=== PATIENT | male | born 1950 | race Caucasian/White ===

== ENCOUNTER 2016-10-21 08:42 | Emergency (ER) | payer MEDICARE, OTHER ==
[2016-02-11 08:54] VITALS: BMI 35.4
[~2016-10-21 08:42] MED LIST: BAYER CHEWABLE81 MG PO; CARDURA8 MG PO; COLACE100 MG PO; EFFEXOR37.5 MG PO; EFFEXOR50 MG PO; FISH OIL 1,0001 CA1 PO; JANUVIA100 MG PO; KLOR-CON M2020 MEQ PO; LYRICA75 MG PO; MIRAPEX0.5 MG PO; NIASPAN1000 MG PO; NORVASC10 MG PO; PERCOCET 10/3251 TA1 PO; PRILOSEC10 MG PO; XANAX0.5 MG PO; ZETIA10 MG PO
[2016-10-21 10:07] LABS: BASOPHILS 0.2 % (0-2); HEMOGLOBIN 13.6 g/dL (13.5-17.5); IMMATURE GRANULOCYTES 0.2 % (0-5); LYMPHOCYTES 15.5 % (15-50); MCH 28.8 pg (26.0-34.0); MCHC 33.2 g/dL (31.0-37.0); MCV 86.7 fL (80.0-100.0); MEAN PLATELET VOLUME 10.9 fL (7.4-10.4); MONOCYTES 6.1 % (2-11); RBC 4.73 10x6/uL (4.20-6.10); RDW 15.9 % (11.5-14.5); WBC 5.4 10x3/uL (4.8-10.8)
[2016-10-21 10:10] LABS: PLATELET COUNT 126 10x3/uL (130-400)
[2016-10-21 10:24] LABS: ALBUMIN 3.6 g/dL (3.4-5.0); ALKALINE PHOSPHATASE 63 U/L (46-116); ALT (SGPT) 25 U/L (10-68); BILIRUBIN - TOTAL 0.36 mg/dL (0.2-1.3); CALC OSMOLALITY 285 mosm/kg (275-300); CALCIUM 8.7 mg/dL (8.5-10.1); CARBON DIOXIDE 25.7 mmol/L (21.0-32.0); CHLORIDE - SERUM 107 mmol/L (98-107); CREATININE - SERUM 1.2 mg/dL (0.6-1.3); GLUCOSE 142 mg/dL (74-106); POTASSIUM - SERUM 4.5 mmol/L (3.5-5.1); PROTEIN - SERUM 7.6 g/dL (6.4-8.2); SODIUM 141 mmol/L (136-145); UREA NITROGEN 20 mg/dL (7-18); eGFR NON AFRICAN AMERICAN 64 mL/min (90-120)
[2016-10-21 10:29] LABS: CREATINE KINASE 95 UL (21-232); MAGNESIUM - SERUM 2.1 mg/dL (1.8-2.4)
[2016-10-21 10:30] LABS: TROPONIN-I < 0.017 ng/mL (0.000-0.060)
== END 2016-10-21 11:56 | disposition home or self-care (01) ==
LOC: D.ER 08:42
PROVIDERS: Emergency Medicine
DX: R51 Headache (principal); M54.2 Cervicalgia; C67.9 Malignant neoplasm of bladder, unspecified; I25.810 Atherosclerosis of coronary artery bypass graft(s) without angina pectoris; E11.9 Type 2 diabetes mellitus without complications; I10 Essential (primary) hypertension; F17.200 Nicotine dependence, unspecified, uncomplicated

== ENCOUNTER → 2016-10-30 14:16 | Outpatient (CLI) | payer MEDICARE, OTHER ==
[2016-02-11 08:54] VITALS: BMI 35.4
== END | disposition home or self-care (01) ==
LOC: D.US 14:16
DX: R22.1 Localized swelling, mass and lump, neck (principal)

== ENCOUNTER 2016-11-18 16:25 | Inpatient (IN) | payer MEDICARE, OTHER ==
[~2016-11-18] VITALS: Ht 175.3 cm; Wt 108.9 kg
--- NOTE | ~2016-11-18 | HEMODYNAMI ---
PATIENT:MEREDITH POND MEDICAL RECORD: [id number] : 48 LOCATION:[facility] D.2106 ADMISSION DATE: 11/18/16 Generatedon:11/23/201611:56 Patient name: MEREDITH POND Patient #: [id number] SSN: : 1950 Date of study: 11/23/2016 Page: Of Hemodynamic Procedure Report Patient Data Patient Demographics Procedure consent was obtained First Name: MEREDITH Gender: Male Last Name: DEJAH : 1950 Patient #: [id number] Age: 66 year(s) Race: Unknown Additional ID: [id number] Contact details Address: [address] [address] State: [place] City: [place] Zip code: [address] Admission Admission Data Admission Date: 11/18/2016 Admission Time: 19:35 Room #: D.2106 Procedure Procedure Types Cath Procedure Peripheral Cath Diagnostic Procedure Miscellaneous Procedure Description Procedure Date Procedure Date: 11/23/2016 Procedure Start Time: 11:35 Procedure Staff Name Function Hayes Kamara MD Performing Physician Sarah Isbell RT Scrub Demetra Jaquez RN Nurse Severo Pham RT Monitor Procedure Data Cath Procedure Fluoroscopy Diagnostic fluoroscopy Total fluoroscopy Time: 1.8 time: 1.8 min min Diagnostic fluoroscopy Total fluoroscopy dose: 69 dose: 69 mGy mGy Contrast Material Contrast Material Type Amount (ml) Isovue 300 25 Hemodynamics Rest Snapshots Pre Cath Intra NCS Post Cath Procedure Log Time Note 11:09:43 Severo Pham RT (R) (CV) sent for patient. Start room use. 11:11:03 Time tracking: Regular hours 11:11:08 Plan of Care:Hemodynamics will remain stable., Cardiac rhythm will remain stable., Comfort level will be maintained., Respiratory function will remain adequate., Patient/ family verbilizes understanding of procedure., Procedure tolerated without complication., Recovers from procedure without complications.. 11:11:09 Correct patient and procedure confirmed by team. 11:11:11 Signed procedure consent form obtained from patient. 11:11:12 ECG and BP/O2 sat monitors applied to patient. 11:11:13 Baseline sample Acquired. 11:11:18 Pre-procedure instructions explained to patient. 11:11:19 Pre-op teaching completed and patient verbalized understanding. 11:11:20 Family in waiting room. 11:11:22 Patient NPO since Midnight. 11:11:31 Alarms reviewed by R. N. 11:11:31 Sharps counted by scrub and verified by R.N. 11:11:37 Right abdomen area was prepped with chlora-prep and draped in sterile fashion 11::59 Physician arrived 11::59 --------ALL STOP TIME OUT------ 11:35:04 Final Timeout: patient, procedure, and site verified with staff and physician. All members of the team are in agreement. 11:35:07 Right abdomen site verified by team. 11:35:12 Sedation plan: IV Moderate Sedation Lidocaine 11:35:35 Procedure started. 11:35:35 Full Disclosure recording started 11:35:44 Local anesthetic to Abdominal area with Lidocaine 1% by Hayes Kamara MD.INITIAL ACCESS ONLY 11:45:10 Procedure ended.(Physican Out) 11:52:54 Fluoroscopy time 01.80 minutes. 11:53:00 Fluoroscopy dose: 69 mGy 11:53:00 Flurop Dose total: 69 11:53:02 STOPCOCK 3-WAY LARGE BORE opened to sterile field. 11:53:03 BAG, DRAINAGE EMPTY 600ML W/SALLIE opened to sterile field. 11:53:06 Contrast amount:Isovue 300 25ml. 11:53:09 Sharps counted by scrub and verified by R.N. 11:53:13 Insertion/operative site no bleeding no hematoma. 11:53:18 Post-op/insertion site Right Abdominal area dressed using a 4 x 4 and Tegaderm. 11:53:24 Post Abdominal area:stable 11:53:34 Post procedure instruction explained to patient.Patient verbalizes understanding. 11:53:36 Procedure and supply charges have been captured, reviewed, submitted and are correct. 11:53:45 Report given to [facility]. 11:53:50 Patient transfered to [facility] with Wheelchair. Device Usage Item Manufacture Quantity Catalog Hospital Part Current Minimal Lot# / Name Number Charge Number Stock Stock Serial# Code TAMMIE [facility] 1 [id number] [id number] 5 [id number] 3-WAY LARGE BORE BAG, [facility] 1 [id number] 5 DRAINAGE Medical EMPTY 600ML W/SALLIE Signature Audit [place] Stage Time Signature Unsigned Intra-Procedure 11/23/2016 Severo 11:56:31 AM Ankit RT (R) (CV) Signatures Monitor : Severo Signature : Ankit RT Date : Time : [id number] [place] [address]
--- NOTE | ~2016-11-18 | HEMODYNAMI ---
PATIENT:MEREDITH POND MEDICAL RECORD: [id number] : 48 LOCATION:[facility] D.2106 ADMISSION DATE: 11/18/16 Generatedon:11/21/20169:22 Patient name: MEREDITH POND Patient #: [id number] SSN: : Date of study: 11/21/2016 Page: Of Hemodynamic Procedure Report Patient Data Patient Demographics Procedure consent was obtained First Name: MEREDITH Gender: Male Last Name: DEJAH : 1950 Patient #: [id number] Age: 66 year(s) Race: Unknown Additional ID: [id number] Contact details Address: [address] [address] State: [place] City: [place] Zip code: [address] Admission Admission Data Admission Date: 11/18/2016 Admission Time: 19:35 Room #: D.2106 Procedure Procedure Types Cath Procedure Peripheral Cath Diagnostic Procedure Miscellaneous Procedure Description Procedure Date Procedure Date: 11/21/2016 Procedure Start Time: 8:40 Procedure Staff Name Function Isaac Dangelo MD Performing Physician Sarah Isbell RT Scrub Demetra Jaquez RN Nurse Severo Pham RT Monitor Procedure Data Cath Procedure Fluoroscopy Diagnostic fluoroscopy Total fluoroscopy Time: 5.8 time: 5.8 min min Diagnostic fluoroscopy Total fluoroscopy dose: 192 dose: 192 mGy mGy Contrast Material Contrast Material Type Amount (ml) Isovue 300 24 Diagnostic catheters Device Type Used For End Catheter Placement Merit Impress KA2 5Fr 65CM catheter Hemodynamics Rest Heart Rate: 65 (bpm) Snapshots Pre Cath Intra NCS Post Cath Vital Signs Time Heart Resp SPO2 NIBP (mmHg) Rhythm Pain Sedation Rate (ipm) (%) Status Level (bpm) 8:19:26 66 13 97 133/80(124) NSR 0 (11) 10(A) , No pain 8:23:42 65 15 96 148/90(126) NSR 0 (11) 10(A) , No pain 8:28:05 64 18 96 138/82(112) NSR 0 (11) 10(A) , No pain 8:32:25 68 17 95 129/86(105) NSR 0 (11) 10(A) , No pain 8:36:41 69 19 97 137/88(117) NSR 0 (11) 10(A) , No pain 8:41:40 71 9 95 Measuring NSR 0 (11) 10(A) , No pain 8:41:56 71 9 94 125/83(109) NSR 0 (11) 10(A) , No pain 8:46:10 68 16 92 119/85(99) NSR 0 (11) 10(A) , No pain 8:50:22 68 16 91 121/89(101) NSR 0 (11) 10(A) , No pain 8:54:34 68 16 91 130/89(109) NSR 0 (11) 10(A) , No pain 8:58:50 68 15 93 138/86(115) NSR 0 (11) 10(A) , No pain 9:03:08 67 16 91 136/91(112) NSR 0 (11) 10(A) , No pain 9:07:24 69 15 90 136/89(115) NSR 0 (11) 10(A) , No pain 9:11:36 68 16 91 133/89(113) NSR 0 (11) 10(A) , No pain 9:15:52 67 15 92 146/89(110) NSR 0 (11) 10(A) , No pain 9:20:12 68 14 92 148/91(122) NSR 0 (11) 10(A) , No pain Procedure Log Time Note 8:07:26 Severo Pham RT (R) (CV) sent for patient. Start room use. 8:07:57 Time tracking: Regular hours 8:08:14 Plan of Care:Hemodynamics will remain stable., Cardiac rhythm will remain stable., Comfort level will be maintained., Respiratory function will remain adequate., Patient/ family verbilizes understanding of procedure., Procedure tolerated without complication., Recovers from procedure without complications.. 8:08:23 Patient received from Outpatients to IR Alert and oriented. Tansferred to table in Prone position. 8:08:25 Correct patient and procedure confirmed by team. 8:08:26 Signed procedure consent form obtained from patient. 8:08:27 ECG and BP/O2 sat monitors applied to patient. 8:08:28 Full Disclosure recording started 8:08:29 8:08:32 H&P Date Dictated: 11/21/2016 H&P Addendum completed by physician on day of procedure. (MUST COMPLETE FOR ALL OUTPATIENTS). 8:08:33 Pre-procedure instructions explained to patient. 8:08:33 Pre-op teaching completed and patient verbalized understanding. 8:08:37 Family in waiting room. 8:08:39 8:09:06 SEE ANESTHESIA NOTE FOR PRE PROCEDURE TIVA 8:17:56 Vital chart was started 8:17:57 Baseline sample Acquired. 8:17:59 Rhythm: sinus rhythm 8:28:26 Use device set IR Diagnostic 8:28:27 Sterile Angiographic Pack opened to sterile field. 8:28:29 Bag Decanter opened to sterile field. 8:38:26 Right abdomen area was prepped with chlora-prep and draped in sterile fashion 8:38:29 Alarms reviewed by R. N. 8:38:30 Sharps counted by scrub and verified by R.N. 8:38:33 Physician arrived 8:38:33 Final Timeout: patient, procedure, and site verified with staff and physician. All members of the team are in agreement. 8:38:34 --------ALL STOP TIME OUT------ 8:38:39 Right abdomen site verified by team. 8:38:45 Physical assessment completed. ASA score P 4 - A patient with severe systemic disease that is a constant threat to life as per Isaac Dangelo MD. 8:38:52 Sedation plan: IV Moderate Sedation Propofol 8:39:48 Procedure started. 8:40:03 Local anesthetic to Abdominal area with Lidocaine 1% by Isaac Dangelo MD.INITIAL ACCESS ONLY 8:40:06 CHIBA 20 X 15 needle opened to sterile field. 8:40:07 Acist Syringe opened to sterile field. 8:46:28 KIT, INTRODUCER ACCUSTICK II W/C opened to sterile field. 8:46:28 BAG, DRAINAGE EMPTY 600ML W/SALLIE opened to sterile field. 8:46:29 STOPCOCK 3-WAY LARGE BORE opened to sterile field. 8:48:[address] .035 145 glide wire opened to sterile field. 8:49:30 A Certica Solutions KA2 5Fr 65CM catheter was advanced over the wire and used for . 8:52:20 Cook MANDEL 180 guide wire opened to sterile field. 8:54:30 Terumo 6Fr Carroll Destination Sheath opened to sterile field. 8:55:10 Inflation number: 1 A Cordis Powerflex Pro 7.0 x 40 x 80cm balloon was prepped and advanced across the Undefined1, then inflated 8:56:53 PEEL-A-WAY INTRODUCER 9FR. opened to sterile field. 8:56:59 PEEL-A-WAY INTRODUCER 9FR. opened to sterile field. 9:00:21 [place] [facility] All Purpose 8Fr drainage catheter opened to sterile field. 9:02:31 DILATOR, VESSEL 10/20 opened to sterile field. 9:09:02 Procedure ended.(Physican Out) 9:11:47 Fluoroscopy time 05.80 minutes. 9:11:52 Fluoroscopy dose: 192 mGy 9:11:52 Flurop Dose total: 192 9:12:16 Contrast amount:Isovue 300 24ml. 9:12:18 Sharps counted by scrub and verified by R.N. 9:12:34 SEE ANESTHESIA NOTE FOR POST PROCEDURE TIVA 9:22:57 Vital chart was stopped Intervention Summary Intervention Notes Time ActionType Lesion and Equipment Action# Pressure Duration Attributes Used 8:55:10 Inflate Undefined1 Cordis 1 0 00:00 balloon Powerflex Pro 7.0 x 40 x 80cm balloon Device Usage Item Name Manufacture Quantity Catalog Hospital Part Current Minimal Lot# / Number Charge Number Stock Stock Serial# Code Sterile Cardinal 1 [id number] 5 Angiographic Health Pack Bag Decanter Microtek 1 [id number] 08419 655341 5 Medical Inc. CHIBA 20 X [facility] 1 [id number] 754179 460247 5 [id number] 15 needle Acist Acist 1 69890 311607 331826 115189 20 Syringe Medical Systems Inc KIT, [place] 1 [id number] 372854 389027 711219 5 INTRODUCER Scientific ACCUSTICK II W/C BAG, [facility]it 1 [id number] 484101 831209 955945 5 DRAINAGE Medical EMPTY 600ML W/SALLIE STOPCOCK [facility] 1 [id number] 742047 0759 603283 5 [id number] 3-WAY LARGE BORE [facility] 1 E67334 013258 341854 5 [id number] [address]ADRUNNER .035 145 glide wire Merit Merit 1 [id number] 916980 740741 5 Impress KA2 Medical 5Fr 65CM catheter Cook [facility] 1 [id number] 614262 327331 5 [id number] 180 guide wire Terumo 6Fr Terumo 1 RSR01 284438 31994 514489 5 Carroll Destination Sheath Cordis Cardinal 1 [id number] 576108 584447 137270 5 Powerflex Health Pro 7.0 x 40 x 80cm balloon PEEL-A-WAY [facility] 2 [id number] 174950 789249 037938 5 [id number] INTRODUCER [id number] 9FR. [facility] 1 [id number] 795728 590960 301398 5 All Purpose Scientific 8Fr drainage catheter DILATOR, [facility] 1 E14325 563174 75061 027752 5 [id number] VESSEL 01/18 Signature Audit [place] Stage Time Signature Unsigned Intra-Procedure 11/21/2016 Severo 9:22:54 AM Shuffield RT (R) (CV) Signatures Monitor : Severo Signature : Nirajield RT Date : Time : [facility] [address] [place] [address]
[2016-11-18 17:50] LABS: APPEARANCE CLOUDY (CLEAR); COLOR YELLOW (YELLOW); GLUCOSE NEGATIVE (NEGATIVE); KETONE NEGATIVE (NEGATIVE); LEUKOCYTE ESTERASE 2+ (NEGATIVE); NITRITE POSITIVE (NEGATIVE); PROTEIN 1+ mg/dL (NEGATIVE); SPECIFIC GRAVITY 1.015 (1.005-1.020)
[2016-11-18 17:51] LABS: BILIRUBIN NEGATIVE (NEGATIVE); UROBILINOGEN NORMAL (NORMAL)
[2016-11-18 18:03] LABS: BACTERIA MANY /hpf (NONE SEEN); EPITHELIAL CELLS 0-5 /hpf (0-5); HYALINE CAST OCC /lpf (NONE SEEN); MUCUS <1+ /lpf (NONE SEEN); WHITE CELLS - URINE >50 /hpf (0-5)
[2016-11-18 18:19] LABS: BASOPHILS 0.1 % (0-2); EOSINOPHILS 1.4 % (0-7); HEMATOCRIT 40.6 % (42.0-54.0); HEMOGLOBIN 13.3 g/dL (13.5-17.5); IMMATURE GRANULOCYTES 0.2 % (0-5); LYMPHOCYTES 11.3 % (15-50); MCH 28.8 pg (26.0-34.0); MCHC 32.8 g/dL (31.0-37.0); MCV 87.9 fL (80.0-100.0); MEAN PLATELET VOLUME 10.3 fL (7.4-10.4); MONOCYTES 7.6 % (2-11); NEUTROPHILS 79.4 % (40-80); PLATELET COUNT 125 10x3/uL (130-400); RBC 4.62 10x6/uL (4.20-6.10); WBC 8.3 10x3/uL (4.8-10.8)
[2016-11-18 18:43] LABS: ALBUMIN 3.6 g/dL (3.4-5.0); ANION GAP 13.3 mmol/L (8-16); BILIRUBIN - TOTAL 0.32 mg/dL (0.2-1.3); CALCIUM 8.8 mg/dL (8.5-10.1); CARBON DIOXIDE 25.4 mmol/L (21.0-32.0); CREATININE - SERUM 1.5 mg/dL (0.6-1.3); POTASSIUM - SERUM 3.7 mmol/L (3.5-5.1); PROTEIN - SERUM 7.4 g/dL (6.4-8.2)
--- NOTE | 2016-11-18 19:59 | NUR ---
PT RECEIVED VIA WHEELCHAIR, AWAKE, ALERT, ORIENTED. CONTINUE WITH PT CARE. PT TRANSFERRED TO BED WITHOUT DIFFICULTY. CONTINUE TO MONITOR CLOSELY. BED LOW, CALL LIGHT IN REACH, SIDE RAILS X 2, HOB FLAT AT THIS TIME. REPORT RECEIVED FROM HUNTER KOWALSKI.
[2016-11-18 20:00] VITALS: BP 133/78
[2016-11-18] MEDS ORDERED: LYRICA225 MG PO (22:16)
[2016-11-18] MEDS ORDERED: REQUIP0.5 MG PO (22:17)
[2016-11-18] MEDS ORDERED: GLIMEPIRIDE2 MG PO (22:21)
[2016-11-18] MEDS ORDERED: SYNTHROID50 MCG PO (22:21)
[2016-11-19] VITALS (7 sets, daily range): BP systolic 125–181; BP diastolic 70–78; BMI 35.5
[2016-11-19] MEDS ORDERED: LYRICA75 MG PO (00:12)
--- NOTE | 2016-11-19 03:13 | NUR ---
REVIEWED PT'S ALLERGIES WITH PT AND , PLACED ALLERGY BAND, AND YELLOW FALL RISK BAND PT IS CURRENTLY ON DILAUDID ELECTRICAL ENGINEERING DIRECTOR. PT IS RESTING COMFORTABLY WITH C-PAP IN PLACE, DENIES ANY NEEDS, STATES THE DILAUDID IS HELPING HIS FLANK PAIN. CONTINUE TO MONITOR CLOSELY.
--- NOTE | 2016-11-19 08:14 | NUR ---
TYLENOL GIVEN FOR FEVER OF 100.3
--- NOTE | 2016-11-19 08:40 | NUR ---
AM ROUNDING DONE SEEN WITH STEVEDORING SUPERVISOR DILAUDID IN USE FOR PAIN CONTROL. RIGHT AC SEEN WITH NS INFUSING AT 30 CC/HR. ON ROOM AIR. HAS HOME CPAP AT BEDSIDE. WILL CPOC.
--- NOTE | 2016-11-19 09:25 | NUR ---
TO COME TO DESK R/T 0.25 MG XANAX IN AM NEEDED INSTEAD OF THE 0.5 MG. CALL PLACED TO DR SAMPSON OFFICE.
--- NOTE | 2016-11-19 09:28 | NUR ---
NEW ORDERES RECEIVED.
--- NOTE | 2016-11-19 09:49 | NUR ---
AM MEDS GIVEN WITH WATER.
--- NOTE | 2016-11-19 11:21 | NUR ---
PATIENT WANTING TO WALK AROUND NURSE STATION, UNHOOKED FROM SPORTS COMPLEX ATTENDANT AND IV FLUIDS. UP WITH
--- NOTE | 2016-11-19 11:49 | NUR ---
VAN TO ROOM FROM CENTRAL PER PATIENT REQUEST.
--- NOTE | 2016-11-19 14:17 | NUR ---
CALL PLACED TO DR SAMPSON'S OFFICE PATIENT IS ON HOME DOSE OF PERCOCET 10/325 MG 1 PO EVERY 6 HOURS NEEDED FOR LEG PAIN. AWAITING CALL BACK.
--- NOTE | 2016-11-19 14:24 | NUR ---
NEW ORDERS RECEIVED VIA DR SAMPSON OFFICE. THIS IS RELAYED TO THE PATIENT AND .
--- NOTE | 2016-11-19 15:40 | NUR ---
1540-OP PERMITS SIGNED FOR TOMORROW AND PATIENT IS MADE AWARE OF THE NPO PAST MIDNIGHT.
--- NOTE | 2016-11-19 21:05 | NUR ---
PT AWAKE, ALERT, ORIENTED, UP AMBULATING AROUND UNIT WITH HIS . PT DENIES ANY NEEDS AT THIS TIME. CONTINUE TO MONITOR CLOSELY.
[2016-11-20 05:11] VITALS: BP 106/59
[2016-11-20 05:14] LABS: BASOPHILS 0.2 % (0-2); EOSINOPHILS 1.9 % (0-7); HEMOGLOBIN 12.6 g/dL (13.5-17.5); IMMATURE GRANULOCYTES 0.2 % (0-5); LYMPHOCYTES 17.8 % (15-50); MCH 28.3 pg (26.0-34.0); MCHC 32.3 g/dL (31.0-37.0); MCV 87.6 fL (80.0-100.0); MONOCYTES 11.2 % (2-11); NEUTROPHILS 68.7 % (40-80); PLATELET COUNT 107 10x3/uL (130-400); RBC 4.45 10x6/uL (4.20-6.10)
[2016-11-20 05:22] LABS: WBC 4.8 10x3/uL (4.8-10.8)
[2016-11-20 05:23] LABS: INR 1.13 (0.85-1.17); PROTIME 14.4 SECONDS (11.6-15.0)
[2016-11-20 05:24] LABS: APTT 30.4 SECONDS (22.8-39.4)
[2016-11-20 05:30] LABS: ANION GAP 12.2 mmol/L (8-16); CALCIUM 8.7 mg/dL (8.5-10.1); CARBON DIOXIDE 24.9 mmol/L (21.0-32.0); CREATININE - SERUM 1.4 mg/dL (0.6-1.3); POTASSIUM - SERUM 4.1 mmol/L (3.5-5.1)
--- NOTE | 2016-11-20 07:47 | NUR ---
AM ROUNDING DONE WITH PATIENT NPO FOR POSSIBLE PROCEDURE TODAY. ON ROOM AIR. RIGHT AC WITH NS INFUSING AT 30 CC/HR. HOME CPAP AT BEDSIDE. RIGHT UROSTOMY SEEN. WILL CPOC.
--- NOTE | 2016-11-20 08:20 | NUR ---
CALLED AND TALKED TO CURT AT DR SAMPSON'S OFFICE R/T CARDIALOGY CLEARANCE. DR SAMPSON HERE TO SEE PATIENT AT THIS TIME.
[2016-11-20 09:02] VITALS: BP 131/77
--- NOTE | 2016-11-20 14:24 | NUR ---
LAYING IN BED RESTING WITH EYES CLOSED, HOME CPAP IN USE. WILL CONTINUE TO MONITOR.
--- NOTE | 2016-11-20 15:20 | NUR ---
DENIES NEEDS AT PRESENT TIME. AT BEDSIDE CHANGING OUT HIS RIGHT UROSTOMY APPLIANCE. WILL CPOC.
--- NOTE | 2016-11-20 15:24 | NUR ---
CALLED AND TALKED TO ARELY IN [facility] FOR RADIOLOGY AND SHE STATES THAT SHE WILL PLACE THE NEW ORDERS FOR PROCEDURE FOR AM .
--- NOTE | 2016-11-20 15:46 | NUR ---
UN-HOOKED FROM IV FLUIDS SO HE CAN AMBULATE AROUND NURSE STATION WITH .
[2016-11-20 16:19] VITALS: BP 155/82
--- NOTE | 2016-11-20 17:34 | NUR ---
RECONNECTED TO IV FLUIDS TO RIGHT AC. NO NEW ORDERS FOR NPO PAST MIDNIGHT FOR PROCEDURE IN AM BUT I INSTRUCTED AND PATIENT TO NPO PAST MIDNIGHT IN THE HOPES OF PROCEDURE IN AM. WILL PASS THIS TO NEXT NURSE ALONG WITH HOLDING THE NIACIN PER AND NEEDING NEW PERNITS IN AM.
[2016-11-20 17:59] VITALS: BP 124/59
[2016-11-20 20:00] VITALS: BP 140/80
--- NOTE | 2016-11-20 23:27 | NUR ---
19:30 - PT AMBULATING AROUND UNIT WITH , REQUESTING PAIN MEDICATION, DENIES ANY OTHER NEEDS. CONTINUE TO MONITOR CLOSELY.
[2016-11-21 05:04] VITALS: BP 144/83
--- NOTE | 2016-11-21 06:05 | NUR ---
PT HAS BEEN NPO SINCE MIDNIGHT, PREPARING FOR UPCOMING NEPHROSTOMY TUBE PLACEMENT, EVEN THOUGH IT IS NOT SCHEDULED AT THIS TIME. WAS SUPPOSED TO HAVE DONE YESTERDAY, BUT NEEDED CARDIAC CLEARANCE. PT RESTING COMFORTABLY, AT BEDSIDE, DENIES ANY NEEDS. CONTINUE TO MONITOR CLOSELY. BED LOW, CALL LIGHT IN REACH, SIDE RAILS X 2, HOB FLAT. PT WITH C-PAP ON FROM HOME.
--- NOTE | 2016-11-21 08:17 | HP ---
PATIENT: MEREDITH POND MEDICAL RECORD: [id number] ACCOUNT: [id number] LOCATION:[address] : [birth year] ADMISSION DATE: 11/18/16 HISTORY AND PHYSICAL EXAMINATION DATE OF ADMISSION: 11/18/2016 CHIEF COMPLAINT: Right flank pain and "kidney hurts." HISTORY OF PRESENT ILLNESS: This is a 66-year-old white male with multiple medical problems, had acute onset on November 17 of right flank pain and pain in his kidney area. He was found to have a 6-mm stone in the right distal ureter. He is admitted for further evaluation. PAST MEDICAL HISTORY: Diabetes for many years, peripheral neuropathy, coronary artery disease with CABG in 2001 and stents in 2005. He has a history of COPD, sleep apnea, multiple UTIs, diagnosed with bladder cancer, hyperlipidemia, obesity, depression, arthritis, chronic back pain, reflux. PAST SURGICAL HISTORY: Coronary artery bypass graft, cardiac stents, lumbar discectomy, hemorrhoidectomy, cholecystectomy. He has had a cystectomy with ileal conduit in [place] in May [address] Tubbs. ALLERGIES: REPORTEDLY TO ADHESIVE TAPE, SULFA, CIPRO, KEFLEX, DITROPAN, LOPRESSOR, PHENERGAN. HOME MEDICATIONS: Include Cardura 8 mg once a day, Niaspan 1000 mg at bedtime, amlodipine 10 mg once a day, Zetia 10 mg at bedtime, Xanax 0.5 mg t.i.d. p.r.n. anxiety, aspirin 81 mg once a day, Effexor 50 mg twice a day, Lyrica 225 mg at bedtime; ropinirole 0.5, he takes 2 mg at bedtime; Lyrica 75 mg daily to go with the 225 at bedtime, Percocet 10/325 q.6 hours p.r.n. back pain, potassium 20 mEq twice a day; Colace 100 mg, he takes 2 at bedtime, Prilosec 10 mg once a day, Januvia 100 mg once a day, levothyroxine 50 mcg once a day, glimepiride 2 mg once a day. SOCIAL HISTORY: , disabled hazmat truck driver. FAMILY HISTORY: Mother with heart disease and hypertension. Father with heart disease and hypertension. REVIEW OF SYSTEMS: GENERAL: No major weight changes. HEENT: No particular sinus or allergy problems. RESPIRATORY: He has long history of smoking. CARDIAC: History of coronary artery disease, fairly well controlled. GASTROINTESTINAL: History of reflux. GENITOURINARY: He has had multiple urinary tract infections since having his cystectomy with ileal conduit. ENDOCRINE: Diabetes under fair control. NEUROLOGIC: No migraines or seizures. PSYCHIATRIC: He has anxiety. PHYSICAL EXAMINATION: VITAL SIGNS: Temperature 99.1, pulse 74, respirations 20, blood pressure 141/69. HISTORY AND PHYSICAL [id number] MEREDITH POND GENERAL: He does not appear in acute distress at this time. HEENT: Grossly within normal limits. NECK: Supple. HEART: Regular rate and rhythm. LUNGS: Clear. ABDOMEN: Soft with a large parastomal hernia and umbilical hernia. Stoma is pink and draining. EXTREMITIES: No edema. LABORATORY DATA: CBC with a white count of 8300, hemoglobin 13.3, hematocrit 40. Basic metabolic panel is unremarkable. Liver functions were okay. Urinalysis: Yellow, cloudy, 1+ protein, 2+ blood, positive nitrite, 2+ leukocyte esterase, 0-5 epithelial cells, many bacteria. Urine cultures done. CT of the abdomen shows moderate right hydronephrosis, 2 adjacent stones in distal ureter up to 6 mm in size. There are multiple nonobstructing stones in both kidneys. Also, noted was the parastomal hernia containing part of the colon without obstruction. ASSESSMENT: 1. Urinary tract infection. 2. Ureterolithiasis. 3. Right renal colic. 4. Bladder cancer, status post cystectomy with ileal conduit. 5. Coronary artery disease, status post CABG and stents years ago. 6. Diabetes. PLAN: Cultures were done and antibiotics were started. Dr. Will has been consulted. Other tests and procedures as warranted. TRANSINT:[id number] Voice Confirmation ID: [id number] DOCUMENT ID: [id number] CELESTE SAMPSON MD at 0817 CC: [id number] DICTATION DATE: 11/20/1637 HOUSEKEEPING ATTENDANT: 11/20/16 0906 [address] [place] [address]
--- NOTE | 2016-11-21 08:18 | NUR ---
AM ROUNDS - PT IS AWAKE IN BED. AT BEDSIDE. YELLOW BAND ON. SIDE RAILS UP X2. BED AT LOWEST POSITION. CALL AGEE IN USE/REACH. BED AT LOWEST POSITION. NON SKID SOCKS ON. NO NEEDS AT THIS TIME. WILL CONTINUE TO MONITOR.
--- NOTE | 2016-11-21 08:20 | NUR ---
PT LEFT FLOOR VIA BED TO IR.
[2016-11-21 08:32] VITALS: BP 139/78
[2016-11-21 11:29] LABS: BASOPHILS 0.3 % (0-2); EOSINOPHILS 2.3 % (0-7); HEMATOCRIT 40.5 % (42.0-54.0); HEMOGLOBIN 13.2 g/dL (13.5-17.5); IMMATURE GRANULOCYTES 0.3 % (0-5); LYMPHOCYTES 27.5 % (15-50); MCH 28.8 pg (26.0-34.0); MCHC 32.6 g/dL (31.0-37.0); MCV 88.4 fL (80.0-100.0); MEAN PLATELET VOLUME 10.3 fL (7.4-10.4); MONOCYTES 8.8 % (2-11); NEUTROPHILS 60.8 % (40-80); PLATELET COUNT 125 10x3/uL (130-400); RBC 4.58 10x6/uL (4.20-6.10); RDW 15.9 % (11.5-14.5)
[2016-11-21 11:41] LABS: WBC 3.5 10x3/uL (4.8-10.8)
[2016-11-21 11:47] LABS: INR 1.06 (0.85-1.17); PROTIME 13.6 SECONDS (11.6-15.0)
[2016-11-21 11:52] LABS: ANION GAP 14.9 mmol/L (8-16); CALCIUM 8.8 mg/dL (8.5-10.1); CARBON DIOXIDE 26.2 mmol/L (21.0-32.0); CREATININE - SERUM 1.3 mg/dL (0.6-1.3); POTASSIUM - SERUM 4.1 mmol/L (3.5-5.1)
[2016-11-21 14:45] VITALS: Ht 175.3 cm; Wt 108.9 kg
--- NOTE | 2016-11-21 17:37 | EC ---
PATIENT:MEREDITH POND DATE OF SERVICE: 11/18/16 SEX: M MEDICAL RECORD: [id number] DATE OF : [birth year] LOCATION:D.M2 D.210 AGE OF PATIENT: 66 ADMISSION DATE: 11/18/16 REFERRING PHYSICIAN: INTERPRETING PHYSICIAN: XANDER TAYLOR MD ECHOCARDIOGRAM REPORT ECHO CHARGES 4 ECHO COMPLETE CLINICAL DIAGNOSIS: PRE-OP CLEARNCE KIDNEY STONES HX CAD/CABG/STENTS/HTN ECHOCARDIOGRAPHIC MEASUREMENTS (adult normal given) AC root (d.<3.7cm) 3.8 cm LV Septum d (<1.2 cm> 1.5 cm Valve Excursion 2.0 cm LV Septum (systole) 1.7 cm Left Atria (s.<4.0cm> 3.9 cm LVPW d(<1.2cm) 1.5 cm RV (d.<2.3cm) 4.2 cm LVPW (sytole) 1.8 cm LV diastole(<5.6CM) 7.0 cm MV E-F(>70mm/sec) cm LV systole 5.2 cm LVOT Diameter 2.2 cm MV exc.(>10mm) 1.6 cm Est.ejection fraction (50-75%) % Pericardial Effusion N DOPPLER: LVIT cm/sec A 83.0 cm/sec E 66.0 cm/sec LA cm/sec RVSP 31 mmHg LVOT 135 cm/sec AOP1/2T m/s Asc. Ao 150 cm/sec RVOT 108 cm/sec RA cm/sec PA 125 cm/sec AV Gradient Peak 9.00 mmHg AV Mean 3.64 mmHg AV Area 3.2 cm MV Gradient Peak 3.36 mmHg MV Mean 1.16 mmHg MV Area cm COMMENTS: Sailor: Patricio SCALES Golf Ball Trimmer: Kyleigh Taylor TAPE# PACS DATE OF SERVICE: 11/20/2016 PROCEDURE: Transthoracic echocardiogram. FINDINGS: 1. Left ventricle shows moderate concentric left ventricular hypertrophy. The overall ejection fraction appears to be low normal in the 50-55% range. Inflow characteristics into the left ventricle demonstrate diastolic dysfunction. 2. The mitral valve appears to be grossly normal without any significant evidence of mitral regurgitation or mitral stenosis. ECHOCARDIOGRAM REPORT [id number] MEREDITH POND 3. The left atrium is normal size and function. 4. The aortic valve is grossly normal without significant stenosis or regurgitation. 5. The tricuspid valve has mild tricuspid regurgitation. RVSP is 31 mmHg. 6. The pulmonic valve is not well visualized. Doppler examination appears to show normal function. 7. The inferior vena cava was not well just demonstrated. 8. The pericardium appears to be normal. CONCLUSIONS: The patient has evidence of hypertensive heart disease with preserved of systolic function without gross abnormalities in the valvular or myocardial bed. TRANSINT:[id number] Voice Confirmation ID: [id number] DOCUMENT ID: [id number] XANDER TAYLOR MD at 1737 CC: [id number] DICTATION DATE: 11/21/16 0729 HEDIS ANALYST: 11/21/16 0856 [facility] IN [address] [place] [address]
--- NOTE | 2016-11-21 19:45 | NUR ---
RECEIVED REPORT, WILL ASSUME CARE OF PT, PT COMPLAINS OF PAIN, HAD PAIN MEDS AT 1740, CAN HAVE TORADOL, BUT MEDS ARE Q6, WANTS TO WAIT A LITTLE LONGER, BED IS LOW, SRX2, CALL LIGHT IN REACH, AT BEDSIDE, WILL CONTINUE PLAN OF CARE
[2016-11-21 20:00] VITALS: BP 134/71
[2016-11-21 22:38] LABS: APPEARANCE HAZY (CLEAR); BILIRUBIN NEGATIVE (NEGATIVE); COLOR YELLOW (YELLOW); GLUCOSE NEGATIVE (NEGATIVE); KETONE NEGATIVE (NEGATIVE); LEUKOCYTE ESTERASE 2+ (NEGATIVE); NITRITE NEGATIVE (NEGATIVE); PROTEIN 1+ mg/dL (NEGATIVE); SPECIFIC GRAVITY 1.015 (1.005-1.020); UROBILINOGEN NORMAL (NORMAL)
[2016-11-21 22:39] LABS: BACTERIA MODERATE /hpf (NONE SEEN); RED CELLS - URINE >50 /hpf (0-5)
--- NOTE | 2016-11-22 01:31 | NUR ---
CALL LIGHT IN REACH, WILL CONTINUE WITH PLAN OF CARE.
--- NOTE | 2016-11-22 04:18 | NUR ---
ASSESSMENT COMPLETE, SEE FLOWSHEET, BED IS LOW, SRX2, AT BEDSIDE, CALL LIGHT IN REACH, WILL CONTINUE TO MONITOR
[2016-11-22 05:11] VITALS: BP 129/73
--- NOTE | 2016-11-22 07:30 | NUR ---
REPORT RECIEVED. PT RESTING QUIETLY, RR EVEN AND UNLABORED. FAMILY AT BEDSIDE. ASSESSMENT PERFOMRED. NEPHROSTOMY AND UROSTOMY DRAINING STRAW COLORED, CLEAR URINE. PT DENIES PAIN AND NEEDS AT THIS TIME, BHAVNA MARC
[2016-11-22 08:33] VITALS: BP 139/78
[2016-11-22 12:01] VITALS: BP 128/62
[2016-11-22 15:34] VITALS: BP 146/80
--- NOTE | 2016-11-22 16:28 | NUR ---
Patient Name: MEREDITH POND Admission Status: ER Accout number: [id number] Admission Date: 11-18-2016 : 1950 Admission Diagnosis:CALCULUS OF URETER Attending: CELESTE SAMPSON Current LOS: 4 Anticipated DC Date: 11-23-2016 Planned Disposition: Home Primary Insurance: MEDICARE A & B Discharge Planning Comments: * Is the patient Alert and Oriented? Yes 0 * How many steps to enter\exit or inside your home? RAMP 0 * PCP DR. SAMPSON 0 * Pharmacy [facility] [address] * Preadmission Environment Home with Family 0 * ADLs Independent 0 * Equipment Bedside Commode Cane CPAP Shower Chair Walker Wheelchair 0 * Other Equipment [facility] - MEDICAL EQUIPMENT PROVIDER PREFERENCE 0 * List name and contact numbers for known caregivers / representatives who currently or will assist patient after discharge: RADHA POND, SPOUSE, 0 * Community resources currently utilized None 0 * Please name any agencies selected above. NONE 0 * Additional services required to return to the preadmission environment? No 0 * Can the patient safely return to the preadmission environment? Yes 0 * Has this patient been hospitalized within the prior 30 days at any hospital? No 0 CM MET WITH PT IN ROOM TO DISCUSS DISCHARGE PLANNING AND NEEDS. PT REPORTS LIVING AT HOME INDEPENDENTLY WITH SPOUSE. PT REPORTS HAVING ALL NEEDED MEDICAL EQUIPMENT FROM [facility] AND NO OUTSIDE SERVICES ASSISTING IN THE HOME. CM DISCUSSED AVAILABILITY OF HOME HEALTH, REHAB SERVICES AND MEDICAL EQUIPMENT. PT DENIES DISCHARGE NEEDS, REPORTS HIS SPOUSE WILL PICK HIM UP FOR DISCHARGE HOME. IMPORTANT MESSAGE FROM MEDICARE PROVIDED AND EXPLAINED. Seed Analyst: Scottie Ely
--- NOTE | 2016-11-22 18:31 | NUR ---
PT UP IN HALLWAY WITH FAMILY. RR EVEN AND UNLABORED, WILL GIVE REPORT ON PT CONDITION FOR THE DAY.
[2016-11-22 19:00] VITALS: BP 129/79
[2016-11-23] VITALS: BP 141/82
--- NOTE | 2016-11-23 03:52 | NUR ---
ASSESSMENT COMPLETE, SEE FLOWSHEET, PT SLEEPING, AT BEDSIDE, BED IS LOW, SRX2, CALL LIGHT IN REACH, WILL CONTINUE TO MONITOR
--- NOTE | 2016-11-23 04:06 | NUR ---
CLINICAL COORDINATOR AT BEDSIDE TO OBTAIN VITALS, CALL LIGHT IN REACH. WILL CONTINUE WITH PLAN OF CARE.
[2016-11-23 05:00] LABS: BASOPHILS 0.5 % (0-2); HEMATOCRIT 40.8 % (42.0-54.0); HEMOGLOBIN 13.2 g/dL (13.5-17.5); IMMATURE GRANULOCYTES 0.2 % (0-5); LYMPHOCYTES 32.5 % (15-50); MCH 28.5 pg (26.0-34.0); MCHC 32.4 g/dL (31.0-37.0); MCV 88.1 fL (80.0-100.0); MEAN PLATELET VOLUME 10.3 fL (7.4-10.4); NEUTROPHILS 52.8 % (40-80); PLATELET COUNT 128 10x3/uL (130-400); RBC 4.63 10x6/uL (4.20-6.10); RDW 15.3 % (11.5-14.5); WBC 4.3 10x3/uL (4.8-10.8)
[2016-11-23 05:15] LABS: ANION GAP 13.4 mmol/L (8-16); CARBON DIOXIDE 27.9 mmol/L (21.0-32.0); CREATININE - SERUM 1.4 mg/dL (0.6-1.3); POTASSIUM - SERUM 4.3 mmol/L (3.5-5.1)
--- NOTE | 2016-11-23 07:30 | NUR ---
REPORT RECIEVED. PT RESTING QUIETLY. DENIES PAIN AND NEEDS. FAMLY AT BEDSIDE. CPAP ON PT, RR EVEN AND UNLABORED. WILL CTM.
[2016-11-23 08:00] VITALS: BP 144/84
--- NOTE | 2016-11-23 12:15 | NUR ---
PT RECIEVED TO ROOM FROM PROCEDURE. VSS, RR EVEN AND UNLABORED. PT DENIES PAIN AND NEEDS AT THIS TIME, WILL CTM.
[2016-11-23 13:33] VITALS: BP 146/78
--- NOTE | 2016-11-23 15:00 | NUR ---
PT DISCHARGED. DISCHARGE INSTRUCTIONS PROVIDED TO FAMILY AT PT, BOTH VERBALIZED UNDERSTANDING. IV REMOVED WITH CATHETER TIP INTACT. PT WILL BE GOING HOME WITH FAMILY AND WILL BE TAKEN DOWNSTAIRS VIA WHEELCHAIR.
== END 2016-11-23 15:15 | disposition home or self-care (01) | DRG 694 ==
LOC: D.ER 16:25 → D.M2 19:35
PROVIDERS: Emergency Medicine; Radiology Diagnostic Radiology; Specialist; Student in an Organized Health Care Education/Training Program; ADMIT Family Medicine
DX: N20.1 Calculus of ureter (principal); N39.0 Urinary tract infection, site not specified; D64.9 Anemia, unspecified; I25.10 Atherosclerotic heart disease of native coronary artery without angina pectoris; F41.8 Other specified anxiety disorders; E11.22 Type 2 diabetes mellitus with diabetic chronic kidney disease; N18.3 Chronic kidney disease, stage 3 (moderate); Z95.5 Presence of coronary angioplasty implant and graft; Z95.1 Presence of aortocoronary bypass graft; Z85.51 Personal history of malignant neoplasm of bladder; Z72.0 Tobacco use

== ENCOUNTER → 2016-11-28 09:26 | Outpatient (CLI) | payer MEDICARE, OTHER ==
[2016-11-21 14:45] VITALS: BMI 35.4
--- NOTE | ~2016-11-28 | HEMODYNAMI ---
PATIENT:MEREDITH POND MEDICAL RECORD: [id number] : [birth year] [id number] ADMISSION DATE: 11/28/16 Generatedon:11/28/201610:46 Patient name: MEREDITH POND Patient #: [id number] SSN: : Date of study: 11/28/2016 Page: Of Hemodynamic Procedure Report Patient Data Patient Demographics Procedure consent was obtained First Name: MEREDITH Gender: Male Last Name: DEJAH : 1950 Patient #: [id number] Age: 66 year(s) Race: Unknown Additional ID: [id number] Contact details Address: [address] [address] State: [place] City: [place] Zip code: [address] Admission Admission Data Admission Date: 11/28/2016 Admission Time: 9:26 Procedure Procedure Types Cath Procedure Peripheral Cath Diagnostic Procedure Nephro Nephrostogram Thru Existing Procedure Description Procedure Date Procedure Date: 11/28/2016 Procedure Start Time: 10:38 Procedure Staff Name Function Isaac Dangelo MD Performing Physician Sarah Isbell RT Scrub Demetra Jaquez RN Nurse Severo Pham RT Monitor Procedure Data Cath Procedure Fluoroscopy Diagnostic fluoroscopy Total fluoroscopy Time: 0.7 time: 0.7 min min Diagnostic fluoroscopy Total fluoroscopy dose: 22 dose: 22 mGy mGy Contrast Material Contrast Material Type Amount (ml) Isovue 300 10 Hemodynamics Rest Pre Cath Intra NCS Post Cath Procedure Log Time Note 10:09:35 Severo Pham RT (R) (CV) sent for patient. Start room use. 10:13:54 Time tracking: Regular hours 10:14:40 Patient received from Other to IR Alert and oriented. Tansferred to table in Prone position. 10:14:41 Correct patient and procedure confirmed by team. 10:14:42 Correct patient and procedure confirmed by team. 10:14:44 Signed procedure consent form obtained from patient. 10:14:45 ECG and BP/O2 sat monitors applied to patient. 10:14:46 Full Disclosure recording started 10:14:47 - 10:14:57 Pre-procedure instructions explained to patient. 10:14:58 Pre-op teaching completed and patient verbalized understanding. 10:15:07 Use device set IR Diagnostic 10:15:08 Sterile Angiographic Pack opened to sterile field. 10:15:09 Bag Decanter opened to sterile field. 10:15:22 Patient pain scale 0/10 no pain. 10:26:39 Right abdomen area was prepped with chlora-prep and draped in sterile fashion 10:37:17 Physician arrived 10:37:18 --------ALL STOP TIME OUT------ 10:37:19 Final Timeout: patient, procedure, and site verified with staff and physician. All members of the team are in agreement. 10:37:22 Right abdomen site verified by team. 10:37:30 Sedation plan: Local Anesthetic Lidocaine 10:38:21 Procedure started. 10:38:25 Local anesthetic to Abdominal area with Lidocaine 1% by Isaac Dangelo MD.INITIAL ACCESS ONLY 10:41:37 Cook HARJIT .035 15CM guide wire opened to sterile field. 10:42:44 Procedure ended.(Physican Out) 10:43:41 Fluoroscopy time 00.70 minutes. 10:43:45 Fluoroscopy dose: 22 mGy 10:43:45 Flurop Dose total: 22 10:43:50 Contrast amount:Isovue 300 10ml. 10:43:52 Sharps counted by scrub and verified by R.N. 10:43:53 Insertion/operative site no bleeding no hematoma. 10:43:58 Post-op/insertion site Right Abdominal area dressed using a 4 x 4 and Tegaderm. 10:44:05 Post Abdominal area:stable 10:44:13 Post procedure instruction explained to patient.Patient verbalizes understanding. 10:44:14 Procedure and supply charges have been captured, reviewed, submitted an d are correct. 10:44:33 Report given to Other. 10:44:37 Patient transfered to Other with Ambulatory. Device Usage Item Name Manufacture Quantity Catalog Hospital Part Current Minimal Lot# / Number Charge Number Stock Stock Serial# Code Sterile Cardinal 1 [id number] 5 Angiographic Health Pack Bag Decanter Microtek 1 [id number] 5 [employer] Cook HARJIT Rodessa INWEBTURE Limited 1 [id number] 5 [id number] .035 15CM guide wire Signature Audit Westley Stage Time Signature Unsigned Intra-Procedure 11/28/2016 Severo 10:46:07 AM Ankit RT (R) (CV) Signatures Monitor : Severo Signature : Ankit RT Date : Time : [address] [address]
[~2016-11-28 09:26] MED LIST changes: +GLIMEPIRIDE2 MG PO; +LYRICA225 MG PO; +REQUIP0.5 MG PO; +SYNTHROID50 MCG PO
[2016-11-28 10:24] LABS: ANION GAP 14.5 mmol/L (8-16); CARBON DIOXIDE 25.9 mmol/L (21.0-32.0); CREATININE - SERUM 1.4 mg/dL (0.6-1.3); POTASSIUM - SERUM 4.4 mmol/L (3.5-5.1)
== END | disposition home or self-care (01) ==
LOC: D.RAD 09:26
PROVIDERS: Radiology Diagnostic Radiology
DX: N13.5 Crossing vessel and stricture of ureter without hydronephrosis (principal)

== ENCOUNTER 2016-12-01 07:13 | Inpatient (IN) | payer MEDICARE, OTHER ==
[~2016-12-01] VITALS: Ht 172.7 cm; Wt 108.9 kg
[2016-12-01 07:49] LABS: BASOPHILS 0 % (0-2); EOSINOPHILS 0.5 % (0-7); HEMATOCRIT 39.9 % (42.0-54.0); HEMOGLOBIN 13.4 g/dL (13.5-17.5); IMMATURE GRANULOCYTES 0.3 % (0-5); LYMPHOCYTES 3.1 % (15-50); MCH 28.8 pg (26.0-34.0); MCHC 33.6 g/dL (31.0-37.0); MCV 85.6 fL (80.0-100.0); MEAN PLATELET VOLUME 10.1 fL (7.4-10.4); MONOCYTES 6.1 % (2-11); PLATELET COUNT 136 10x3/uL (130-400); RBC 4.66 10x6/uL (4.20-6.10); RDW 14.9 % (11.5-14.5)
[2016-12-01 08:02] LABS: ALBUMIN 3.2 g/dL (3.4-5.0); ANION GAP 14.3 mmol/L (8-16); BILIRUBIN - TOTAL 0.41 mg/dL (0.2-1.3); CALCIUM 8.6 mg/dL (8.5-10.1); CARBON DIOXIDE 23.9 mmol/L (21.0-32.0); CREATININE - SERUM 1.8 mg/dL (0.6-1.3); POTASSIUM - SERUM 4.2 mmol/L (3.5-5.1); PROTEIN - SERUM 7.6 g/dL (6.4-8.2)
[2016-12-01 08:57] LABS: APPEARANCE HAZY (CLEAR); COLOR YELLOW (YELLOW)
[2016-12-01 08:58] LABS: LEUKOCYTE ESTERASE 2+ (NEGATIVE); NITRITE POSITIVE (NEGATIVE); PROTEIN 1+ mg/dL (NEGATIVE)
[2016-12-01 08:59] LABS: BACTERIA MANY /hpf (NONE SEEN); BILIRUBIN NEGATIVE (NEGATIVE); GLUCOSE NEGATIVE (NEGATIVE); KETONE NEGATIVE (NEGATIVE); UROBILINOGEN NORMAL (NORMAL); WHITE CELLS - URINE >50 /hpf (0-5)
--- NOTE | 2016-12-01 09:50 | NUR ---
RECEIVED TO FLOOR FROM ER, ORIENTED TO ROOM, DENIES NEEDS, WILL CONTINUE TO MONITOR
[2016-12-01 10:33] VITALS: BMI 36.5
[2016-12-01 12:51] VITALS: BP 108/64
[2016-12-01 17:03] VITALS: BP 139/76
--- NOTE | 2016-12-01 18:00 | NUR ---
PT WAS SHAKING AND FREEZING, TEMP 99.8, 2 TYLENOLS GIVEN, TEMP RECHECKED AT 1700 TEMP 103, BLANKETS TAKEN OFF, ICE PACKS GIVEN, TEMP RECHECKED AT 1800 STILL AT 103, DR PHAM CALLED, 2 BC ORDERED, WILL CONTINUE TO MONITOR
[2016-12-01 21:18] VITALS: BP 184/102
--- NOTE | 2016-12-01 21:42 | NUR ---
PATIENT STARTED SHAKING HARD. CORE TEMP TAKEN AND SHOWED 103.8. PATIENT COMPLAINED OF CHILLS. DR PHAM WAS CALLED AFTER THE FLOUR MIXER. ICE PACKS WERE APPLIED TO THE AUX AND GROIN. BLANKES REMOVED, AND FAN WAS PLACED ON PATIENT. PERCOCET 10 WAS GIVEN FOR BACK PAIN. 1G VANC WAS GIVEN AND 400MG IBU WAS GIVEN. EFFXOR WAS HELD FOR WARNING OF BAD INTERACTION WITH IBU TONIGHT.
[2016-12-01 22:14] VITALS: BP 136/60
--- NOTE | 2016-12-01 22:16 | NUR ---
ADDED 1 LPM HUMIDIFIED O2 VIA NASAL CANULA. TEMP INCREASED TO 104.6 RECAL TEMP. APPLYING MORE ICE. CONTINUING TO MONITOR
[2016-12-01 23:07] VITALS: BP 127/67
[2016-12-02 00:07] VITALS: BP 124/66
--- NOTE | 2016-12-02 03:04 | NUR ---
PT RESTING QUIETLY, EYES CLOSED. RESP EVEN, UNLABORED. CPAP ON. TEMP DOWN NOW. NO DISTRESS NOTED. CONTINUE RESTAURANT CREW MEMBER'S PLAN OF CARE. AT BEDSIDE.
[2016-12-02 04:04] VITALS: BP 103/59
[2016-12-02 05:17] LABS: BASOPHILS 0.1 % (0-2); EOSINOPHILS 0 % (0-7); HEMATOCRIT 34.4 % (42.0-54.0); HEMOGLOBIN 11.3 g/dL (13.5-17.5); IMMATURE GRANULOCYTES 0.3 % (0-5); LYMPHOCYTES 6.5 % (15-50); MCH 28.2 pg (26.0-34.0); MCHC 32.8 g/dL (31.0-37.0); MCV 85.8 fL (80.0-100.0); MEAN PLATELET VOLUME 10.6 fL (7.4-10.4); MONOCYTES 8.2 % (2-11); NEUTROPHILS 84.9 % (40-80); PLATELET COUNT 137 10x3/uL (130-400); RBC 4.01 10x6/uL (4.20-6.10); RDW 15.1 % (11.5-14.5)
[2016-12-02 05:18] LABS: WBC 10.3 10x3/uL (4.8-10.8)
[2016-12-02 05:35] LABS: ANION GAP 14.4 mmol/L (8-16); CALCIUM 8.2 mg/dL (8.5-10.1); CARBON DIOXIDE 23.8 mmol/L (21.0-32.0); POTASSIUM - SERUM 4.2 mmol/L (3.5-5.1)
[2016-12-02 05:45] LABS: CREATININE - SERUM 2.3 mg/dL (0.6-1.3)
--- NOTE | 2016-12-02 07:35 | NUR ---
PT LAYING IN BED, FAMILY AT BEDSIDE. NO NEEDS EXPRESSED AT THIS TIME. BED IN LOW POSITION AND CALL LIGHT WITHIN REACH. WILL CONTINUE TO MONITOR.
--- NOTE | 2016-12-02 07:50 | NUR ---
SITTING ON THE BEDSIDE, DENIES NEEDS, AT BEDSIDE, CALL LIGHT IN REACH, BED LOWEST POSITION, WILL CONTINUE TO MONITOR
[2016-12-02 08:57] VITALS: BP 114/66
[2016-12-02 12:35] VITALS: BP 135/76
[2016-12-02 15:25] VITALS: BP 132/74
--- NOTE | 2016-12-02 17:00 | NUR ---
TYLENOL GIVEN AT 1445 FOR TEMP OF 99.9, TEMP SPIKED TO 102.2 (CORE TEMP), MOTRIN GIVEN, PACKED IN ICE BAGS, DR PHAM NOTIFIED "CONTINUE TO WATCH, AND KEEP DOING WHAT YOU'RE DOING"
[2016-12-02 19:00] VITALS: BP 136/70
--- NOTE | 2016-12-02 19:03 | NUR ---
PATIENT CORE TEMP 102.4. ICE BAGS PLACED EITHER SIDE OF THE NECK AND ARM PITS WITH 2 BETWEEN THE LEGS. WILL CONTINUE TO MONITOR.
[2016-12-03] VITALS: BP 120/70
--- NOTE | 2016-12-03 03:14 | NUR ---
RN NOTE: PT RESTING QUIETLY AT THIS TIME WITH EYES CLOSED AND EASY RESPIRATIONS. IV IN LEFT FA PATENT WITH NS INFUSING AT 100 ML/HR. UROSTOMY PATENT. WILL CONTINUE TO MONITOR FOR NEEDS. CALL LIGHT WITHIN REACH.
[2016-12-03 04:00] VITALS: BP 116/54
[2016-12-03 04:57] LABS: BASOPHILS 0.2 % (0-2); EOSINOPHILS 1.4 % (0-7); HEMATOCRIT 34.7 % (42.0-54.0); HEMOGLOBIN 11.5 g/dL (13.5-17.5); IMMATURE GRANULOCYTES 0.2 % (0-5); LYMPHOCYTES 11.4 % (15-50); MCH 28.5 pg (26.0-34.0); MCHC 33.1 g/dL (31.0-37.0); MCV 86.1 fL (80.0-100.0); MEAN PLATELET VOLUME 10.8 fL (7.4-10.4); MONOCYTES 10.9 % (2-11); NEUTROPHILS 75.9 % (40-80); PLATELET COUNT 123 10x3/uL (130-400); RBC 4.03 10x6/uL (4.20-6.10); RDW 15.5 % (11.5-14.5)
[2016-12-03 04:58] LABS: WBC 6.3 10x3/uL (4.8-10.8)
[2016-12-03 05:13] LABS: ANION GAP 12.6 mmol/L (8-16); CALCIUM 8.5 mg/dL (8.5-10.1); CARBON DIOXIDE 25.8 mmol/L (21.0-32.0); CREATININE - SERUM 1.9 mg/dL (0.6-1.3); POTASSIUM - SERUM 4.4 mmol/L (3.5-5.1)
--- NOTE | 2016-12-03 07:24 | NUR ---
REPORT RECEIVED FROM PUBLIC SPEAKING PROFESSOR NURSE. CALL LIGHT IN REACH.
--- NOTE | 2016-12-03 09:00 | NUR ---
ASSESSMENT COMPLETED. DENIES PAIN OR NEEDS. IV TUBING LABELED. IN ROOM. PASWORD OBTAINED AND PLACED IN COMPUTER. CALL LIGHT IN REACH. WILL CONTINUE WITH PLAN OF CARE.
[2016-12-03 10:01] VITALS: BP 124/67
--- NOTE | 2016-12-03 10:21 | NUR ---
AM MEDS ADMINISTERED. DENIES NEEDS. IN ROOM. CALL LIGHT IN REACH.
[2016-12-03 11:09] VITALS: Ht 172.7 cm; Wt 108.9 kg
--- NOTE | 2016-12-03 11:32 | NUR ---
LYING SUPINE AT THIS TIME. ALERT AND ORIENTED WITH RESPIRATIONS EVEN AND NON LABORED. CALL LIGHT IN REACH WITH FAMILY AT BEDSIDE. DENIES NEEDS. CALL LIGHT IN REACH, WILL CONTINUE WITH PLAN OF CARE.
--- NOTE | 2016-12-03 11:57 | NUR ---
C/O BACK PAIN OF 8. PERCOCET PO. IN ROOM. CALL LIGHT IN REACH.
[2016-12-03 13:13] VITALS: BP 117/58
--- NOTE | 2016-12-03 13:57 | NUR ---
STATES PAIN IS NOW AT A 0. WILL CONTINUE TO MONITOR.
--- NOTE | 2016-12-03 15:20 | NUR ---
STATES PAIN IS DOWN TO A 0. CALL LIGHT IN REACH.
--- NOTE | 2016-12-03 15:27 | NUR ---
NO NEEDS VOICED AT THIS TIME. CALL LIGHT INR EACH.
[2016-12-03 15:52] VITALS: BP 133/66
--- NOTE | 2016-12-03 16:50 | NUR ---
RESTING WITH EYES CLOSED. RESP EVEN AND UNLABORED. CALL LIGHT IN REACH.
--- NOTE | 2016-12-03 18:05 | NUR ---
PERCOCET PO PER C/O PAIN OF 5. NO CHANGES IN INITIAL ASSESSMENT. VISITOR IN ROOM. CALL LIGHT IN REACH. WILL CONTINUE WITH PLAN OF CARE.
[2016-12-03 19:00] VITALS: BP 139/61
--- NOTE | 2016-12-03 20:03 | NUR ---
ASSESSMENT PER FLOWSHEET. TEMP ELEVATED TO 101.8. MOTRIN 400MG PO GIVEN FOR TEMP MEASURES. IN ROOM UROSTOMY IN PLACE PT'S HAS HIS STENT PARTIALLY HANGING OUT OF HIS UROSTOMY STOMA SITE. PT ALSO HAS 2 HERNIAS.
--- NOTE | 2016-12-03 21:00 | NUR ---
UP AD MUNIRA WALKING IN THE HALLWAY WITH HIS . STATES FEELING MUCH CAM.
--- NOTE | 2016-12-03 21:30 | NUR ---
SITTING IN CHAIR AT BEDSIDE MEDS GIVEN PER MAY.
[2016-12-04] VITALS: BP 124/70
--- NOTE | 2016-12-04 | NUR ---
EYES CLOSED RESPIRATIONS WITH EASE AND UNLABORED.
[2016-12-04 04:00] VITALS: BP 183/69
--- NOTE | 2016-12-04 04:00 | NUR ---
RESTING QUIETLY CPAP ON SR UP X2 CALL LIGHT WITHIN REACH
--- NOTE | 2016-12-04 06:15 | NUR ---
MEDS GIVEN PER MAR. RESTING QUIETLY DENIES NEEDS.
--- NOTE | 2016-12-04 07:08 | NUR ---
REPORT RECEIVED FROM FARM SERVICE CONSULTANT NURSE. CALL LIGHT IN REACH.
--- NOTE | 2016-12-04 07:17 | NUR ---
PATIENT IN BED RESTING QUIETLY AT THIS TIME. IV INTACT. FAMILY AT BEDSIDE. PATIENT HAS NO SIGNS OF DISTRESS. CALL LIGHT WITHIN REACH.
--- NOTE | 2016-12-04 08:22 | NUR ---
ASSESSMENT COMPLETED. PERCOCET PO WITH AM MEDS ADMINISTERED. CALL LIGHTI N REACH. WILL CONTINUE WITH PLAN OF CARE.
[2016-12-04 08:45] VITALS: BP 166/67
--- NOTE | 2016-12-04 10:05 | NUR ---
NO NEEDS VOICED AT THIS TIME. CALL LIGHT IN REACH.
--- NOTE | 2016-12-04 12:07 | NUR ---
LYING IN BED WITH EYES CLOSED. DENIES NEEDS. CALL LIGHT IN REACH.
[2016-12-04 12:33] VITALS: BP 154/72
--- NOTE | 2016-12-04 12:57 | NUR ---
PERCOCET PO PER C/O PAIN OF 5. AND CM IN ROOM AT THIS TIME. WAITING ON DR. SAMPSON.
--- NOTE | 2016-12-04 14:01 | NUR ---
Patient Name: MEREDITH POND Admission Status: ER Accout number: [id number] Admission Date: 12-01-2016 : 1950 Admission Diagnosis:URINARY TRACT INFECTION, SITE NOT SPECIFIED Attending: CELESTE SAMPSON Current LOS: 3 Anticipated DC Date: Planned Disposition: Home Primary Insurance: MEDICARE A & B Discharge Planning Comments: CM MET WITH PATIENT AND TO ASSESS DISCHARGE PLANNING NEEDS. PATIENTS STATES THAT HE LIVES INDEPENDENTLY WITH HIS AT HOME. HIS WILL BE THE ONE TO TAKE HIM HOME AT DISCHARGE. PATIENT HAS BED SIDE COMMODE , CPAP, WALKER, SHOWER CHAIR, WHEELCHAIR. HE DENIES ANY USE OF HH AND DOES NOT THINK HE WILL NEED IT AT DISCHARGE. CM WILL CONTINUE TO FOLLOW AND ASSIST NEEDED PCP: [facility] [address] RADHA HARPER () [phone] Extension Work Director: Annabella Frazier * Is the patient Alert and Oriented? Yes 0 * How many steps to enter\exit or inside your home? RAMP 0 * PCP ADRIÁN 0 * Pharmacy [address] 0 * Preadmission Environment Home with Family 0 * ADLs Independent 0 * Equipment Bedside Commode CPAP Elevated [place] Seat Rolling Walker Shower Chair 0 * List name and contact numbers for known caregivers / representatives who currently or will assist patient after discharge: RADHA () [phone] * Community resources currently utilized None 0 * Additional services required to return to the preadmission environment? Yes 0 * Can the patient safely return to the preadmission environment? Yes 0 * Has this patient been hospitalized within the prior 30 days at any hospital? Yes 0 Grand Total: 0
--- NOTE | 2016-12-04 14:40 | NUR ---
BJORN IVPB PER ORDER. CALL LIGHT IN REACH.
[2016-12-04 15:25] VITALS: BP 133/66
--- NOTE | 2016-12-04 16:00 | NUR ---
LEFT AC IV LEAKING WHILE AMBULATING IN HALLWAY. DC'D WITH TIP INTACT PER ER NURSE. RESITED TO RIGHT HAND WITH 22 GA X1 STICK.
--- NOTE | 2016-12-04 18:22 | NUR ---
PERCOCET PO PER C/O PAIN OF 6. IN ROOM. NO CHANGES IN INITIAL ASSESSMENT. CALL LIGHT IN REACH. WILL CONTINUE WITH PLAN OF CARE.
--- NOTE | 2016-12-04 20:00 | NUR ---
ASSESSMENT PER FLOWSHEET. UROSTOMY IN PLACE CONNECTED TO [place]UNHAM BAG WITH YELLOW URINE. IV PATENT RT HAND OF NS AT 100CC'S/HR. SITE CLEAR. SITTING ON SIDE OF BED ISITING WITH .
--- NOTE | 2016-12-04 21:30 | NUR ---
MEDS GIVEN PER MAR. DENIES NEEDS.
--- NOTE | 2016-12-04 22:30 | NUR ---
WEARING CPAP EYES CLOSED RESPIRATIONS WITH EASE AND UNLABORED.
[2016-12-05 00:20] VITALS: BP 137/64
--- NOTE | 2016-12-05 01:00 | NUR ---
RESTING QUIETLY DENIES NEEDS.
--- NOTE | 2016-12-05 03:04 | NUR ---
RESTING QUIETLY RESPIRATIONS WITH EASE AND UNLABORED.
[2016-12-05 04:00] VITALS: BP 145/74
--- NOTE | 2016-12-05 07:19 | NUR ---
REPORT RECEIVED FROM INTERNATIONAL BANKER NURSE. CALL LIGHT IN REACH.
--- NOTE | 2016-12-05 08:08 | NUR ---
ASSESSMENT COMPLETED. AT BEDSIDE. CALL LIGHT IN REACH. WILL CONTINUE WITH PLAN OF CARE.
[2016-12-05] MEDS ORDERED: LEVAQUIN750 MG PO (08:33)
[2016-12-05 08:48] VITALS: BP 134/74
--- NOTE | 2016-12-05 09:39 | NUR ---
IV DC'D WITH TIP INTACT. AM MEDS ADMINISTERED WITH PERCOCET. IN ROOM. CALL LIGHT IN REACH.
--- NOTE | 2016-12-05 10:25 | NUR ---
PATIENT SITTING UP IN CHAIR ALERT. NO SIGNS OF DISTRESS NOTED. ANTICIPATING D/C HOME. FAMILY PRESENT. CALL LIGHT IN REACH.
--- NOTE | 2016-12-05 10:46 | NUR ---
DC INSTRUCTIONS EXPLAINED TO PATIENT AND . VERBALIZED UNDERSTANDING. ALSO CHANGED FOLLOW UP APPT WITH DR. SAMPSON. ALSO WAITING SAP BOBJ DEVELOPER BACK FROM DR. SAMPSON'S NURSE ABOUT FREQUENCY OF LEVAQUIN.
--- NOTE | 2016-12-05 11:00 | NUR ---
DC'D TO VEHICLE VIA WC WITH .
== END 2016-12-05 11:00 | disposition home or self-care (01) | DRG 690 ==
LOC: D.ER 07:13 → D.MS 09:21
PROVIDERS: Emergency Medicine; Family Medicine; ADMIT Family Medicine
DX: N39.0 Urinary tract infection, site not specified (principal); N20.1 Calculus of ureter; C67.9 Malignant neoplasm of bladder, unspecified; I12.9 Hypertensive chronic kidney disease with stage 1 through stage 4 chronic kidney disease, or unspecified chronic kidney disease; N18.9 Chronic kidney disease, unspecified; Z95.1 Presence of aortocoronary bypass graft; I25.10 Atherosclerotic heart disease of native coronary artery without angina pectoris; E78.5 Hyperlipidemia, unspecified

== ENCOUNTER → 2017-03-05 09:08 | Outpatient (CLI) | payer MEDICARE, OTHER ==
[2016-12-03 11:09] VITALS: BMI 36.4
[~2017-03-05 09:08] MED LIST changes: +BENADRYL25 MG PO; +CORDARONE200 MG PO; +HYDROCHLOROTH12.5 M1 PO; +LEVAQUIN750 MG PO; +NYSTATIN ORAL SU5 ML PO; +NYSTATIN1 PWD TOPICAL
--- NOTE | 2017-03-12 08:55 | EC ---
PATIENT:MEREDITH POND DATE OF SERVICE: 03/05/17 SEX: M MEDICAL RECORD: [id number] DATE OF : [birth year] LOCATION:[facility] AGE OF PATIENT: 66 ADMISSION DATE: 03/05/17 REFERRING PHYSICIAN: INTERPRETING PHYSICIAN: XANDER TAYLOR MD ECHOCARDIOGRAM REPORT ECHO CHARGES 4 ECHO COMPLETE CLINICAL DIAGNOSIS: CAD/HTN/AAA ECHOCARDIOGRAPHIC MEASUREMENTS (adult normal given) AC root (d.<3.7cm) 4.9 cm LV Septum d (<1.2 cm> 1.9 cm Valve Excursion 2.3 cm LV Septum (systole) 2.4 cm Left Atria (s.<4.0cm> 4.8 cm LVPW d(<1.2cm) 1.8 cm RV (d.<2.3cm) 4.4 cm LVPW (sytole) 2.2 cm LV diastole(<5.6CM) 6.2 cm MV E-F(>70mm/sec) cm LV systole 3.3 cm LVOT Diameter 2.1 cm MV exc.(>10mm) 2.3 cm Est.ejection fraction (50-75%) % Pericardial Effusion N DOPPLER: LVIT cm/sec A 78.0 cm/sec E 88.0 cm/sec LA cm/sec RVSP 19 mmHg LVOT 134 cm/sec AOP1/2T m/s Asc. Ao 159 cm/sec RVOT 127 cm/sec RA cm/sec PA 134 cm/sec AV Gradient Peak 10.17mmHg AV Mean 5.42 mmHg AV Area 2.7 cm MV Gradient Peak 4.37 mmHg MV Mean 1.46 mmHg MV Area cm COMMENTS: Instructional Media Services Technician: Patricio SCALES Interstate Planner: 4 Dr. Taylor TAPE# PACS DATE OF SERVICE: 03/05/2017 PROCEDURE: Transthoracic echocardiogram. FINDINGS: 1. Left ventricle is mildly dilated. There is moderate concentric left ventricular hypertrophy with an ejection fraction of 60% to 65%. 2. The mitral valve has mild mitral regurgitation. Inflow characteristics showed pseudonormalization. 3. The left atrium is moderately to severely dilated. ECHOCARDIOGRAM REPORT [id number] MEREDITH POND 4. The aortic valve shows thickening without stenosis and no evidence of regurgitation. 5. The right ventricle is moderately dilated. 6. The right atrium is moderately dilated. 7. The tricuspid valve has trace tricuspid regurgitation without evidence of right ventricular systolic pressure elevation. CONCLUSIONS: The patient has evidence of hypertensive heart disease with mild dilatation and moderate concentric left ventricular hypertrophy. TRANSINT:[id number] Voice Confirmation ID: [id number] DOCUMENT ID: [id number] XANDER TAYLOR MD at 0855 CC: [id number] DICTATION DATE: 03/11/17 0826 STITCHDOWN THREAD LASTER: 03/11/17 1041 DEP CLI 03/05/17 [address] [place] [address]
== END | disposition home or self-care (01) ==
LOC: D.ECHO 03-01 11:00
DX: I25.10 Atherosclerotic heart disease of native coronary artery without angina pectoris (principal); I10 Essential (primary) hypertension; I71.4 Abdominal aortic aneurysm, without rupture; R09.89 Other specified symptoms and signs involving the circulatory and respiratory systems

== ENCOUNTER → 2017-03-06 17:35 | Outpatient (CLI) | payer MEDICARE, OTHER ==
[2016-12-03 11:09] VITALS: BMI 36.4
[2017-03-06 19:47] LABS: ALBUMIN 3.8 g/dL (3.4-5.0); BILIRUBIN - DIRECT 0.09 mg/dL (0.00-0.30); BILIRUBIN - INDIRECT 0.09 mg/dL (0.00-1.00); BILIRUBIN - TOTAL 0.18 mg/dL (0.2-1.3); CHOL - HDL RATIO 5.8 ratio (2.3-4.9); LDL-HDL RATIO 2.3 ratio (1.5-3.5); PROTEIN - SERUM 7.5 g/dL (6.4-8.2)
== END | disposition home or self-care (01) ==
LOC: D.LABREF 17:35
PROVIDERS: Internal Medicine Cardiovascular Disease
DX: E78.5 Hyperlipidemia, unspecified (principal); I10 Essential (primary) hypertension

== ENCOUNTER 2017-03-20 11:40 | Emergency (ER) | payer MEDICARE, OTHER ==
[2016-12-03 11:09] VITALS: BMI 36.4
[~2017-03-20 11:40] MED LIST changes: -BENADRYL25 MG PO; -CORDARONE200 MG PO; -HYDROCHLOROTH12.5 M1 PO; -NYSTATIN ORAL SU5 ML PO; -NYSTATIN1 PWD TOPICAL
[2017-03-20 12:14] LABS: BASOPHILS 0.1 % (0-2); EOSINOPHILS 0.6 % (0-7); HEMATOCRIT 41.7 % (42.0-54.0); HEMOGLOBIN 13.8 g/dL (13.5-17.5); IMMATURE GRANULOCYTES 0.3 % (0-5); LYMPHOCYTES 5.1 % (15-50); MCH 29.4 pg (26.0-34.0); MCHC 33.1 g/dL (31.0-37.0); MCV 88.9 fL (80.0-100.0); MEAN PLATELET VOLUME 10.3 fL (7.4-10.4); MONOCYTES 2.2 % (2-11); NEUTROPHILS 91.7 % (40-80); PLATELET COUNT 101 10x3/uL (130-400); RBC 4.69 10x6/uL (4.20-6.10); RDW 15.7 % (11.5-14.5); WBC 7.9 10x3/uL (4.8-10.8)
[2017-03-20 12:24] LABS: HCG SERUM NEGATIVE
[2017-03-20 12:34] LABS: ALBUMIN 3.8 g/dL (3.4-5.0); ANION GAP 12.7 mmol/L (8-16); BILIRUBIN - TOTAL 0.39 mg/dL (0.2-1.3); CALCIUM 9.6 mg/dL (8.5-10.1); CARBON DIOXIDE 28.3 mmol/L (21.0-32.0); CREATININE - SERUM 1.6 mg/dL (0.6-1.3); PROTEIN - SERUM 7.5 g/dL (6.4-8.2)
[2017-03-21] MEDS ORDERED: KLOR-CON M2020 MEQ PO (05:08)
[2017-03-21] MEDS ORDERED: HYDROCHLOROTH12.5 M1 PO (05:09)
== END 2017-03-20 15:00 | disposition home or self-care (01) ==
LOC: D.ER 11:40
PROVIDERS: Emergency Medicine
DX: N23 Unspecified renal colic (principal); N20.1 Calculus of ureter; Z85.51 Personal history of malignant neoplasm of bladder; F17.200 Nicotine dependence, unspecified, uncomplicated

== ENCOUNTER 2017-03-20 20:07 | Inpatient (IN) | payer MEDICARE, OTHER ==
[~2017-03-20] VITALS: Ht 172.7 cm; Wt 98.6 kg
--- NOTE | ~2017-03-20 | CN ---
PATIENT NAME:MEREDITH CORDERO MEDICAL RECORD: [id number] : [birth year] LOCATION:[facility] ADMIT DATE: 03/20/17 ACCOUNT: [id number] CONSULTING PHYSICIAN: JAIME OBRIEN MD REFERRING PHYSICIAN: JEF SAMPSON MD DATE OF CONSULTATION: 03/22/2017 CONSULT REQUESTING PHYSICIAN: Dr. Jef Sampson. REASON FOR CONSULTATION: Critical care management, acute shortness of breath, acute hypoxic respiratory failure, septic shock. HISTORY OF PRESENT ILLNESS: Mr. Cordero is a 66-year-old gentleman who was admitted with cough and kidney stone. The patient was on the medical floor yesterday, the patient became dyspneic as well as hypotensive, transferred to the ICU. His blood culture was growing gram-positive cocci. Now the patient is very weak and lethargic and a bit confused. History was taken by reviewing the patient's note and talking to the family. He was hypotensive and required Levophed IV. Also, he went into zbklg-xj-ctwaxlr kidney failure. His creatinine went up from 2.9 to above 5. REVIEW OF SYSTEMS: Mainly in the history of present illness. PAST MEDICAL HISTORY: 1. History of obstructive sleep apnea, on BiPAP at home. 2. Hypertension. 3. Coronary artery disease. 4. History of CA of the bladder. 5. Gastroesophageal reflux disease. 6. Anxiety, depression. 7. Hyperlipidemia. PAST SURGICAL HISTORY: 1. He has cholecystectomy. 2. He has a cystectomy with ureteroileal conduit. 3. Hemorrhoidectomy. ALLERGIES: ALLERGIC TO STATINS, CIPRO, METOPROLOL, OXYBUTYNIN, PROMETHAZINE, SULFA AND TRIMETHOPRIM. PRESENT MEDICATIONS: He is on Levaquin IV, ceftriaxone IV, vancomycin IV, Levophed IV. His all other medication is reviewed. PERSONAL AND SOCIAL HISTORY: The patient is . He lives with his . He is still a current everyday smoker. FAMILY HISTORY: Significant for cardiovascular diseases and diabetes in siblings. PHYSICAL EXAMINATION: GENERAL: Now, the patient is lying comfortably in bed. He is not in acute distress. VITAL SIGNS: The blood pressure is 125/72, pulse is 107, respiration is 20, CONSULT REPORT [id number] MEREDITH CORDERO temperature is 98.1, and SpO2 is 92% on 15 liters oxymizer. HEENT: Conjunctivae pink, sclerae nonicteric. NECK: Neck is supple. There is elevated JVD. CHEST: There are bilateral crackles. No wheezing. HEART: Rhythm regular, normal sound, no murmur. ABDOMEN: Abdomen is soft, bowel sounds present. No hepatosplenomegaly. RECTAL: Deferred. EXTREMITIES: No cyanosis, no clubbing, no pedal edema. SKIN: The skin is warm, normal turgor. CENTRAL NERVOUS SYSTEM: The patient is awake and alert. There are no obvious cranial nerve abnormality. The gait was not tested. LABORATORY DATA: CBC: WBC 4.1, hemoglobin 13.5, hematocrit 41.7 and the platelet count is 25. Chemistry: Sodium is 141, potassium 5.3, BUN is 57, creatinine 5, glucose 158. ABG: The pH was 7.33, pCO2 was 31.4, bicarbonate is 16.6. IMPRESSION: 1. Acute hypoxic respiratory failure. 2. Septic shock. 3. Bacteremia. Blood culture positive for gram-positive cocci. 4. Urosepsis. 5. Metabolic acidosis, most likely secondary to septic shock. 6. Leukopenia and thrombocytopenia, most likely secondary to septic shock. 7. Hypotension. 8. Metabolic acidosis. 9. Ywtak-wt-qtneyzu renal failure. 10. Leukopenia secondary to shock. 11. History of CA of the bladder. 12. Obstructive sleep apnea, CPAP. 13. Tobacco dependence syndrome. RECOMMENDATION: 1. Continue vancomycin and Levaquin. I will add cefepime and discontinue Rocephin. 2. We will continue Levophed to keep the systolic blood pressure above 90. 3. Start on bicarb drip. 4. We will consult hematology and oncology for leukopenia and thrombocytopenia. 5. Supplemental oxygen as required. 6. We will follow up labs and chest radiograph. 7. Keep the CVP between [address] Sampson, thank you for involving me in the care of Mr. Cordero. CRITICAL CARE TIME: 45 minutes. TRANSINT:[id number] Voice Confirmation ID: [id number] DOCUMENT ID: [id number] CONSULT REPORT [id number] MEREDITH CORDERO,JAIME TREJO at 1406 CC: JEF SAMPSON MD [id number] DICTATION DATE: 03/22/17 1051 POLYSOM TECH: 03/22/17 1149 ADM IN [facility] [address] [place] [address]
--- NOTE | ~2017-03-20 | HEMODYNAMI ---
PATIENT:MEREDITH POND MEDICAL RECORD: [id number] : 48 LOCATION:[facility] D.231 ADMISSION DATE: 03/20/17 Generatedon:04/11/201714:23 Patient name: MEREDITH POND Patient #: [id number] SSN: : Date of study: 04/11/2017 Page: Of Hemodynamic Procedure Report Patient Data Patient Demographics Procedure consent was obtained First Name: MEREDITH Gender: Male Last Name: DEJAH : 1950 Patient #: [id number] Age: 66 year(s) Race: Unknown Additional ID: [id number] Contact details Address: [place] [address] State: [place] City: [place] Zip code: [address] Admission Admission Data Admission Date: 03/20/2017 Admission Time: 22:57 Room #: [facility] Procedure Procedure Types Cath Procedure Peripheral Cath Diagnostic Procedure Nephro Nephrostogram Thru Existing Miscellaneous Procedure Description Procedure Date Procedure Date: 04/11/2017 Procedure Start Time: 13:57 Procedure Staff Name Function Isaac Dangelo MD Performing Physician Severo Pham RT Monitor Sarah Isbell RT Scrub Maggie Ortega RN Nurse Procedure Data Cath Procedure Fluoroscopy Diagnostic fluoroscopy Total fluoroscopy Time: 3.7 time: 3.7 min min Diagnostic fluoroscopy Total fluoroscopy dose: 216 dose: 216 mGy mGy Contrast Material Contrast Material Type Amount (ml) Isovue 300 30 Diagnostic catheters Device Type Used For End Catheter Placement Merit Impress KA2 5Fr 65CM catheter ([id number]) Procedure Medications Medication Administration Route Dosage Versed I.V. 1 mg Fentanyl I.V. 50 mcg Versed I.V. 1 mg Fentanyl I.V. 50 mcg Hemodynamics Rest Heart Rate: 98 (bpm) Snapshots Pre Cath Intra NCS Post Cath Vital Signs Time Heart Resp SPO2 etCO2 NIBP (mmHg) Rhythm Pain Sedation Rate (ipm) (%) (mmHg) Status Level (bpm) 13:59:25 96 18 94 19.3 141/90(112) NSR 0 (11) 10(A) , No pain 14:03:50 93 15 87 24.4 136/69(87) NSR 0 (11) 10(A) , No pain 14:08:14 95 14 90 25.9 125/73(94) NSR 0 (11) 10(A) , No pain 14:12:34 96 12 90 24.5 126/69(92) NSR 0 (11) 10(A) , No pain 14:17:33 103 22 96 20.8 Measuring NSR 0 (11) 10(A) , No pain 14:18:57 100 6 95 22.2 Time NSR 0 (11) 10(A) Exceeded , No pain 14:22:57 10.4 No Cuff NSR 0 (11) 10(A) , No pain Medications Time Medication Route Dose Verified Delivered Reason Notes Effectivene ss by by 13:58:13 Versed I.V. 1 mg Isaac Maggie for Antolin Ortega RN sedation 13:58:25 Fentanyl I.V. 50 Isaac Maggie for [facility] Antolin Ortega RN sedation 14:01:23 Versed I.V. 1 mg Isaac Maggie for Antolin Ortega RN sedation 14:01:29 Fentanyl I.V. 50 Isaac Maggie for [facility] Antolin Ortega RN sedation Procedure Log Time Note 13:44:24 Severo Pham RT (R) (CV) sent for patient. Start room use. 13:44:30 Time tracking: Regular hours 13:44:35 Patient received from ICU to IR Alert and oriented. Tansferred to table in Prone position. 13:44:35 Plan of Care:Hemodynamics will remain stable., Cardiac rhythm will remain stable., Comfort level will be maintained., Respiratory function will remain adequate., Patient/ family verbilizes understanding of procedure., Procedure tolerated without complication., Recovers from procedure without complications.. 13:44:38 Correct patient and procedure confirmed by team. 13:44:42 Signed procedure consent form obtained from spouse. 13:44:43 ECG and BP/O2 sat monitors applied to patient. 13:44:44 Full Disclosure recording started 13:44:45 - 13:44:48 H&P Date Dictated: 04/11/2017 Within 30 days and on chart.. 13:44:49 Pre-procedure instructions explained to patient. 13:44:49 Pre-op teaching completed and patient verbalized understanding. 13:44:51 Family in waiting room. 13:45:13 Unable to provide pre-op teaching due to educational barrier. non verberal 13:45:31 UNABLE TO ANSWER QUESTIONS ABOUT HIS HISTORY 13:45:53 IV patent on arrival in right hand with 0.9% NaCl at [facility]. 13:45:58 Use device set IR Diagnostic 13:45:59 Bag Decanter (2002S) opened to sterile field. 13:46:00 Sterile Angiographic Pack opened to sterile field. 13:56:10 Left abdomen area was prepped with chlora-prep and draped in sterile fashion 13:56:12 Physician arrived 13:56:12 --------ALL STOP TIME OUT------ 13:56:13 Final Timeout: patient, procedure, and site verified with staff and physician. All members of the team are in agreement. 13:56:19 Left abdomen site verified by team. 13:56:24 Sedation plan: IV Moderate Sedation Medication:Versed, Fentanyl 13:57:57 Procedure started. 13:58:12 Baseline sample Acquired. 13:58:12 Vital chart was started 13:58:13 Versed 1 mg I.V. was administered by Maggie Ortega RN; for sedation; 13:58:25 Fentanyl 50 mcg I.V. was administered by Maggie Ortega RN; for sedation ; 14:01:07 St Finn 9FR sheath opened to sterile field. 14:01:08 HARJIT .035 15cm wire ([id number]) opened to sterile field. 14:01:23 Versed 1 mg I.V. was administered by Maggie Ortega RN; for sedation; 14:01:29 Fentanyl 50 mcg I.V. was administered by Maggie Ortega RN; for sedation ; 14:02:21 A Osmosis KA2 5Fr 65CM catheter ([id number]) was advanced over the wire and used for . 14:15:12 Procedure ended.(Physican Out) 14:15:46 Fluoroscopy time 03.70 minutes. 14:15:53 Fluoroscopy dose: 216 mGy 14:15:53 Flurop Dose total: 216 14:16:55 Contrast amount:Isovue 300 30ml. 14:16:57 Sharps counted by scrub and verified by R.N. 14:16:58 Insertion/operative site no bleeding no hematoma. 14:17:04 Post-op/insertion site Left Abdominal area dressed using a 4 x 4 and Tegaderm. 14:17:12 Patient needs reinforcement of post procedure teaching. 14:17:16 Procedure and supply charges have been captured, reviewed, submitted an d are correct. 14:17:29 Procedure type changed to Cath procedure, Peripheral Cath Diagnostic Procedure, Nephro, Nephrostogram Thru Existing, Miscellaneous 14:19:48 Report given to ICU. 14:19:55 Patient transfered to ICU with Bed. 14:23:46 Vital chart was stopped Device Usage Item Name Manufacture Quantity Catalog Hospital Part Current Minimal Lot# / Number Charge Number Stock Stock Serial# Code Bag Decanter Microtek 1 [id number] [id number] 5 () Medical Inc. Sterile Cardinal 1 [id number] [id number] 079992 [address] Finn [address] St Finn 1 [id number] 220716 517645 5 sheath HARJIT .035 Cook Medical 1 [id number] [id number] 5 15cm wire ([id number]) Merit Merit 1 [id number] 351904 5 Impress KA2 Medical 5Fr 65CM catheter ([id number]) Signature Audit Gregory Stage Time Signature Unsigned Intra-Procedure 04/11/2017 Severo 2:23:42 PM Ankit RT (R) (CV) Signatures Monitor : Severo Signature : Ankit RT Date : Time : [place] [id number] [place] [id number]
--- NOTE | ~2017-03-20 | HP ---
PATIENT: MEREDITH POND MEDICAL RECORD: [id number] ACCOUNT: [id number] LOCATION:D.[facility] : 48 ADMISSION DATE: 03/20/17 HISTORY AND PHYSICAL EXAMINATION DATE OF ADMISSION: 03/20/2017 CHIEF COMPLAINT: Fever. HISTORY OF PRESENT ILLNESS: This is a 66-year-old white male who has a history of bladder cancer and had ileal conduit. He has had a history of multiple admissions in to the hospital with urinary tract infection and has been having kidney stone for the last several months. He was seen in the Emergency Department at [place] on 03/20/2017, and had a CT of the abdomen that showed a stone in the left ureter with hydronephrosis. He was discharged home to follow up with his urologist who performed the ileal conduit in [place]. He came back to the hospital the evening of 03/20/2017, with acute onset of fever and flank pain. He is admitted for a urinary tract infection and probable sepsis with fever. PAST MEDICAL HISTORY AND SURGICAL HISTORY: Diabetes, peripheral neuropathy, coronary artery disease, COPD, sleep apnea, multiple UTIs, bladder cancer, hyperlipidemia, obesity, depression, arthritis, chronic back pain, and reflux. PAST SURGICAL HISTORY: Coronary artery bypass graft, cardiac stents, lumbar discectomy, hemorrhoidectomy, cholecystectomy. He has had a cystectomy with ileal conduit in [place] in May [address] Treviño. ALLERGIES: REPORTEDLY TO ADHESIVE TAPE, SULFA, CIPRO, KEFLEX, DITROPAN, LOPRESSOR, AND PHENERGAN. HOME MEDICATIONS: Please see MAR for that. SOCIAL HISTORY: , disabled truck rental service attendant. FAMILY HISTORY: Mother of heart disease. She had high blood pressure. Father of heart disease. He had high blood pressure. REVIEW OF SYSTEMS: GENERAL: No major weight changes. HEENT: No particular sinus or allergy problems. RESPIRATORY: Has a long history of smoking. CARDIAC: History of coronary artery disease, fairly well controlled. GASTROINTESTINAL: Has reflux. GENITOURINARY: Multiple urinary tract infections since his cystectomy. ENDOCRINE: Diabetes, under fair control. NEUROLOGIC: No migraines or seizure. PSYCHIATRIC: He does have anxiety. PHYSICAL EXAMINATION: VITAL SIGNS: Temperature 99.4, pulse 98, blood pressure 106/62, respirations 18, O2 sats 93%. GENERAL: He is lying in bed, appears fairly comfortable. ABDOMEN: Distended. HEENT: Grossly within normal limits. HISTORY AND PHYSICAL [id number] MEREDITH POND NECK: Supple. HEART: Regular rate and rhythm. LUNGS: Fairly clear. ABDOMEN: Distended. BACK: Some tenderness noted. He has ileal conduit with bag noted to the abdomen. EXTREMITIES: Trace to 1+ edema. LABORATORY DATA: Urinalysis showed yellow, clear, positive nitrite, 10-25 white blood cells, many bacteria. Urine culture is done. CBC showed a white count of 7900, hemoglobin 13.8, platelets 101,000. Basic metabolic panel is essentially unremarkable except BUN little elevated at 20, creatinine 1.6, glucose 136. Liver functions are all normal. CT of the abdomen and pelvis done earlier in the day showed compared with previous exam from 08/26/2016, there was a 4.6 mm calcification in the left ureter with associated hydronephrosis. Nephrolithiasis is seen associated with the left kidney. Ostomy in the right abdomen and associated herniation of colon that does not appear to be changed from previous. There is a 5.3 x 4.3 cm abdominal aortic aneurysm. PLAN: We will admit. Cultures have been obtained. Start antibiotics and supportive care. TRANSINT:[id number] Voice Confirmation ID: [id number] DOCUMENT ID: [id number] CELESTE SAMPSON MD at 1332 CC: [id number] DICTATION DATE: 04/23/171914 FLOOR INSTALLER: 04/23/17 2317 DIS IN 04/23/17 [facility] [address] [place] [address]
--- NOTE | ~2017-03-20 | HEMODYNAMI ---
PATIENT:MEREDITH POND MEDICAL RECORD: [id number] : 48 LOCATION:[facility] D.2312 ADMISSION DATE: 03/20/17 Generatedon:03/28/201714:15 Patient name: MEREDITH POND Patient #: [id number] SSN: : Date of study: 03/28/2017 Page: Of Hemodynamic Procedure Report Patient Data Patient Demographics Procedure consent was obtained First Name: MEREDITH Gender: Male Last Name: DEJAH : 1950 Patient #: [id number] Age: 66 year(s) Race: Unknown Additional ID: [id number] Contact details Address: [place] [address] State: [place] City: [place] Zip code: [address] Admission Admission Data Admission Date: 03/20/2017 Admission Time: 22:57 Room #: D.2312 Procedure Procedure Types Cath Procedure Peripheral Cath Diagnostic Procedure Miscellaneous Procedure Description Procedure Date Procedure Date: 03/28/2017 Procedure Start Time: 13:45 Procedure Staff Name Function Isaac Dangelo MD Performing Physician Severo Pham RT Monitor Sarah Isbell RT Scrub Maggie Ortega RN Nurse Procedure Data Cath Procedure Fluoroscopy Diagnostic fluoroscopy Total fluoroscopy Time: 3.1 time: 3.1 min min Diagnostic fluoroscopy Total fluoroscopy dose: 130 dose: 130 mGy mGy Contrast Material Contrast Material Type Amount (ml) Isovue 300 10 Procedure Medications Medication Administration Route Dosage Heparin Flush Bag added to field 1 bags (1000units/500ml NS) Lidocaine 1% added to field 20 Hemodynamics Rest Heart Rate: 68 (bpm) Snapshots Pre Cath Intra NCS Post Cath Vital Signs Time Heart Resp SPO2 etCO2 NIBP Rhythm Pain Sedation Rate (ipm) (%) (mmHg) (mmHg) Status Level (bpm) 13:32:42 97 0 114/61(79) NSR 0 (11) 10(A) , No pain 13:36:58 67 9 97 0 118/64(92) NSR 0 (11) 10(A) , No pain 13:41:16 68 3 97 0 118/59(85) NSR 0 (11) 10(A) , No pain 13:45:32 68 97 0 120/60(86) NSR 0 (11) 10(A) , No pain 13:49:50 68 20 96 0 114/58(83) NSR 0 (11) 10(A) , No pain 13:54:08 68 20 97 0 118/59(77) NSR 0 (11) 10(A) , No pain 13:58:27 68 19 96 0 119/61(80) NSR 0 (11) 10(A) , No pain 14:02:40 68 19 96 0 114/63(87) NSR 0 (11) 10(A) , No pain 14:06:54 69 19 95 0 120/63(89) NSR 0 (11) 10(A) , No pain 14:11:08 69 19 95 0 121/62(88) NSR 0 (11) 10(A) , No pain Medications Time Medication Route Dose Delivered Reason Notes Effectiveness by 13:35:15 Heparin Flush added 1 Bag to bags (1000units/500ml field NS) 13:35:23 Lidocaine 1% added 20ml to vial field Procedure Log Time Note 13:21:58 Severo Pham RT (R) (CV) sent for patient. Start room use. 13:22:14 Time tracking: Regular hours 13:22:20 Plan of Care:Hemodynamics will remain stable., Cardiac rhythm will remain stable., Comfort level will be maintained., Respiratory function will remain adequate., Patient/ family verbilizes understanding of procedure., Procedure tolerated without complication., Recovers from procedure without complications.. 13:22:26 Patient received from ICU to IR Alert and oriented. Tansferred to table in Prone position. 13:22:27 Correct patient and procedure confirmed by team. 13:22:29 Signed procedure consent form obtained from patient. 13:22:30 ECG and BP/O2 sat monitors applied to patient. 13:22:31 Full Disclosure recording started 13:22:31 - 13:22:35 H&P Date Dictated: 03/28/2017 Within 30 days and on chart.. 13:23:01 PT ON VENT UNABLE TO COMMUNICATE N/A ANSWERS 13:23:17 Use device set IR Diagnostic 13:23:18 Sterile Angiographic Pack opened to sterile field. 13:23:19 Bag Decanter (2002S) opened to sterile field. 13:31:32 Vital chart was started 13:34:21 Patient NPO since Midnight. 13:34:48 IV patent on arrival in Lt subclavian with 0.9% NaCl at KVO. 13:35:00 PT ON DIPROVAN DRIP 13:35:15 Heparin Flush Bag (1000units/500ml NS) 1 bags added to field was administered by ; ; 13:35:23 Lidocaine 1% 20ml vial added to field was administered by ; ; 13:35:34 Left abdomen area was prepped with chlora-prep and draped in sterile fashion 13:35:42 Baseline sample Acquired. 13:37:10 Unable to provide pre-op teaching due to educational barrier. PT BEING ON VENT 13:37:36 KIT, INTRODUCER ACCUSTICK II W/C ([id number]) opened to sterile field. 13:43:17 Physician arrived 13:43:18 --------ALL STOP TIME OUT------ 13:43:19 Final Timeout: patient, procedure, and site verified with staff and physician. All members of the team are in agreement. 13:43:26 Left abdomen site verified by team. 13:43:32 Sedation plan: IV Moderate Sedation Medication:Versed, Fentanyl 13:45:19 Procedure started. 13:45:25 Local anesthetic to Lumbar area with Lidocaine 1% by Isaac Dangelo MD.INITIAL ACCESS ONLY 13:55:30 Terumo 5FR ANGLED 65CM glide catheter opened to sterile field. 13:58:06 DILATOR, VESSEL 02/18 opened to sterile field. 13:59:23 [place] Sci 8FR X 26 CM Ureteral Stent ([id number]) opened to sterile field. 13:59:24 Abscession 10 FR drainage catheter ([id number]) opened to sterile field. 14:01:38 BAG, DRAINAGE EMPTY 600ML W/SALLIE ([id number]) opened to sterile field. 14:01:40 STOPCOCK 3-Way Large Bore ([id number]) opened to sterile field. 14:01:49 SUTURE ETHILON 2-0 BLK MONO FS opened to sterile field. 14:03:02 Tegaderm 4 x 4 (1626W) opened to sterile field. 14:06:33 Procedure ended.(Physican Out) 14:06:39 Fluoroscopy time 03.10 minutes. 14:06:45 Fluoroscopy dose: 130 mGy 14:06:45 Flurop Dose total: 130 14:06:49 Contrast amount:Isovue 300 10ml. 14:06:51 Sharps counted by scrub and verified by R.N. 14:07:02 Insertion/operative site no bleeding no hematoma. 14:07:11 CATH SUTURED IN 14:07:31 Post Lumbar area:stable 14:07:36 Post procedure instruction explained to patient.Patient verbalizes understanding. 14:07:38 Procedure and supply charges have been captured, reviewed, submitted an d are correct. 14:14:57 Report given to ICU. 14:15:07 Patient transfered to ICU with Bed. 14:15:39 Vital chart was stopped Device Usage Item Name Manufacture Quantity Catalog Hospital Part Current Minima l Lot# / Number Charge Number Stock Stock Serial# Code Sterile [place] [address] [id number] 5 Angiographic Health Pack Bag Decanter Microtek 1 [id number] 78820 076801 5 () Medical Inc. KIT, [place] 1 [id number] 044188 526201 572925 5 INTRODUCER Scientific ACCUSTICK II W/C ([id number]) Terumo 5FR Terumo 1 [id number] 061768 826912 5 ANGLED 65CM glide catheter DILATOR, [employer] 1 [id number] 880165 39827 311955 5 [id number] VESSEL 02/18 [place] Sci [place] 1 [id number] 334543 015654 565955 5 8FR X 26 CM Scientific Ureteral Stent ([id number]) Abscession Angiodynamics 1 [id number] 076989 926933 392927 5 10 FR drainage catheter ([id number]) BAG, [facility] 1 [id number] 238683 399770 578308 5 DRAINAGE EMPTY 600ML W/SALLIE (JTV669) [facility] 1 J25870 107815 7416 989715 5 [id number] 3-Way Large Bore (V24486) SUTURE Ethicon 1 664H 067746 715372 5 ETHILON 2-0 BLK MONO FS Tegaderm 4 x 3M 1 1626W 014980 429003 433324 5 4 (1626W) Signature Audit [place] Stage Time Signature Unsigned Intra-Procedure 03/28/2017 Severo 2:15:37 PM Ankit RT (R) (CV) Signatures Monitor : Severo Signature : Ankit RT Date : Time : [facility] [address] [place] [address]
[2017-03-20 20:53] LABS: APPEARANCE CLEAR (CLEAR); BILIRUBIN NEGATIVE (NEGATIVE); COLOR YELLOW (YELLOW); GLUCOSE NEGATIVE (NEGATIVE); KETONE NEGATIVE (NEGATIVE); NITRITE POSITIVE (NEGATIVE); PROTEIN TRACE mg/dL (NEGATIVE); SPECIFIC GRAVITY 1.005 (1.005-1.020); UROBILINOGEN NORMAL (NORMAL)
[2017-03-20 20:59] LABS: BACTERIA MANY /hpf (NONE SEEN); MUCUS >1+ /lpf (NONE SEEN); RED CELLS - URINE 0-5 /hpf (0-5)
[2017-03-20 21:03] LABS: BASOPHILS 0 % (0-2); EOSINOPHILS 0.3 % (0-7); HEMOGLOBIN 13.4 g/dL (13.5-17.5); IMMATURE GRANULOCYTES 0.3 % (0-5); LYMPHOCYTES 3.4 % (15-50); MCHC 32.7 g/dL (31.0-37.0); MCV 88.7 fL (80.0-100.0); MEAN PLATELET VOLUME 11.3 fL (7.4-10.4); MONOCYTES 0.8 % (2-11); NEUTROPHILS 95.2 % (40-80); PLATELET COUNT 77 10x3/uL (130-400); RBC 4.62 10x6/uL (4.20-6.10); RDW 15.8 % (11.5-14.5); WBC 3.6 10x3/uL (4.8-10.8)
[2017-03-20 22:06] LABS: PLATELET ESTIMATE DECREASED
[2017-03-21] VITALS (16 sets, daily range): BP systolic 79–116; BP diastolic 21–70; BMI 36.5; BMI 36.4
[2017-03-21 02:35] LABS: ALBUMIN 3.3 g/dL (3.4-5.0); ANION GAP 16.4 mmol/L (8-16); BILIRUBIN - TOTAL 1.2 mg/dL (0.2-1.3); CALCIUM 9.4 mg/dL (8.5-10.1); CARBON DIOXIDE 23.4 mmol/L (21.0-32.0); POTASSIUM - SERUM 3.8 mmol/L (3.5-5.1); PROTEIN - SERUM 6.9 g/dL (6.4-8.2)
[2017-03-21 02:37] LABS: CREATININE - SERUM 2.9 mg/dL (0.6-1.3)
[2017-03-21] MEDS ORDERED: KLOR-CON M2020 MEQ PO (05:08)
[2017-03-21] MEDS ORDERED: HYDROCHLOROTH12.5 M1 PO (05:09)
[2017-03-21 23:51] LABS: BASOPHILS 0.1 % (0-2); EOSINOPHILS 0.2 % (0-7); HEMATOCRIT 38.5 % (42.0-54.0); HEMOGLOBIN 12.7 g/dL (13.5-17.5); IMMATURE GRANULOCYTES 7.1 % (0-5); LYMPHOCYTES 3.8 % (15-50); MCH 29.3 pg (26.0-34.0); MCV 88.9 fL (80.0-100.0); MONOCYTES 5.3 % (2-11); NEUTROPHILS 83.5 % (40-80); RBC 4.33 10x6/uL (4.20-6.10); RDW 16.5 % (11.5-14.5)
[2017-03-21 23:53] LABS: WBC 11.5 10x3/uL (4.8-10.8)
[2017-03-21 23:54] LABS: PLATELET COUNT 32 10x3/uL (130-400)
[2017-03-22] VITALS (47 sets, daily range): BP systolic 71–149; BP diastolic 43–99; Ht 172.7 cm; Wt 98.6 kg
[2017-03-22 00:21] LABS: CALCIUM 8.2 mg/dL (8.5-10.1); CARBON DIOXIDE 20.6 mmol/L (21.0-32.0); CHLORIDE - SERUM 107 mmol/L (98-107); CKMB 1.2 U/L (0.0-3.6); CREATINE KINASE 58 UL (21-232); GLUCOSE 210 mg/dL (74-106); SODIUM 142 mmol/L (136-145); TROPONIN-I 0.047 ng/mL (0.000-0.060)
[2017-03-22 00:30] LABS: CALC OSMOLALITY 302 mosm/kg (275-300); CREATININE - SERUM 4.7 mg/dL (0.6-1.3); POTASSIUM - SERUM 5.2 mmol/L (3.5-5.1); UREA NITROGEN 51 mg/dL (7-18); eGFR NON AFRICAN AMERICAN 13 mL/min (90-120)
[2017-03-22 06:19] LABS: BASOPHILS 0 % (0-2); EOSINOPHILS 0 % (0-7); HEMATOCRIT 41.7 % (42.0-54.0); HEMOGLOBIN 13.5 g/dL (13.5-17.5); IMMATURE GRANULOCYTES 15.9 % (0-5); LYMPHOCYTES 2.7 % (15-50); MCH 29.3 pg (26.0-34.0); MCHC 32.4 g/dL (31.0-37.0); MCV 90.7 fL (80.0-100.0); MONOCYTES 0.2 % (2-11); NEUTROPHILS 81.2 % (40-80); RDW 16.9 % (11.5-14.5)
[2017-03-22 06:46] LABS: ANION GAP 20.2 mmol/L (8-16); CALCIUM 8.1 mg/dL (8.5-10.1); CARBON DIOXIDE 20.1 mmol/L (21.0-32.0); POTASSIUM - SERUM 5.3 mmol/L (3.5-5.1)
[2017-03-22 07:07] LABS: WBC 4.1 10x3/uL (4.8-10.8)
[2017-03-22 07:08] LABS: PLATELET COUNT 25 10x3/uL (130-400)
[2017-03-22 12:07] LABS: ANION GAP 21.8 mmol/L (8-16); CALCIUM 7.9 mg/dL (8.5-10.1); CARBON DIOXIDE 18.3 mmol/L (21.0-32.0); CREATININE - SERUM 5.2 mg/dL (0.6-1.3); POTASSIUM - SERUM 5.1 mmol/L (3.5-5.1)
[2017-03-22 13:51] LABS: APTT 38.4 SECONDS (22.8-39.4); INR 1.93 (0.85-1.17); PROTIME 21.5 SECONDS (11.6-15.0)
[2017-03-22 14:06] LABS: D-DIMER-QUANTITATIVE 14.51 ug/mLFEU (0.20-0.54)
[2017-03-22 23:54] LABS: BASOPHILS 0 % (0-2); EOSINOPHILS 0.1 % (0-7); HEMATOCRIT 35.7 % (42.0-54.0); HEMOGLOBIN 11.7 g/dL (13.5-17.5); IMMATURE GRANULOCYTES 1.7 % (0-5); LYMPHOCYTES 3.9 % (15-50); MCH 29.3 pg (26.0-34.0); MCHC 32.8 g/dL (31.0-37.0); MCV 89.5 fL (80.0-100.0); MONOCYTES 2.4 % (2-11); NEUTROPHILS 91.9 % (40-80); PLATELET COUNT 15 10x3/uL (130-400); RBC 3.99 10x6/uL (4.20-6.10); RDW 16.7 % (11.5-14.5); WBC 10.6 10x3/uL (4.8-10.8)
[2017-03-23] VITALS (93 sets, daily range): BP systolic 96–129; BP diastolic 60–79
[2017-03-23 00:03] LABS: CALCIUM 7.5 mg/dL (8.5-10.1); CREATININE - SERUM 4.9 mg/dL (0.6-1.3)
[2017-03-23 06:17] LABS: BASOPHILS 0 % (0-2); EOSINOPHILS 0.3 % (0-7); HEMATOCRIT 34.5 % (42.0-54.0); HEMOGLOBIN 11.6 g/dL (13.5-17.5); IMMATURE GRANULOCYTES 2.5 % (0-5); LYMPHOCYTES 3.4 % (15-50); MCH 29.8 pg (26.0-34.0); MCHC 33.6 g/dL (31.0-37.0); MCV 88.7 fL (80.0-100.0); MONOCYTES 0.1 % (2-11); NEUTROPHILS 93.7 % (40-80); RBC 3.89 10x6/uL (4.20-6.10); RDW 16.8 % (11.5-14.5); WBC 7.9 10x3/uL (4.8-10.8)
[2017-03-23 06:18] LABS: PLATELET COUNT 36 10x3/uL (130-400)
[2017-03-23 06:49] LABS: BILIRUBIN - TOTAL 0.99 mg/dL (0.2-1.3); CALCIUM 7.4 mg/dL (8.5-10.1); CARBON DIOXIDE 26.2 mmol/L (21.0-32.0); CREATININE - SERUM 4.9 mg/dL (0.6-1.3); PROTEIN - SERUM 6.3 g/dL (6.4-8.2); VANCOMYCIN - TROUGH 18.6 ug/mL (10.0-20.0)
[2017-03-23 06:53] LABS: ALBUMIN 2.4 g/dL (3.4-5.0); POTASSIUM - SERUM 4.2 mmol/L (3.5-5.1)
[2017-03-24] VITALS (93 sets, daily range): BP systolic 70–132; BP diastolic 45–93
[2017-03-24 05:33] LABS: BASOPHILS 0.1 % (0-2); EOSINOPHILS 0.5 % (0-7); HEMATOCRIT 32.8 % (42.0-54.0); HEMOGLOBIN 11.4 g/dL (13.5-17.5); LYMPHOCYTES 3.1 % (15-50); MCH 29.9 pg (26.0-34.0); MCHC 34.8 g/dL (31.0-37.0); MCV 86.1 fL (80.0-100.0); MONOCYTES 4.7 % (2-11); NEUTROPHILS 88.6 % (40-80); PLATELET COUNT 22 10x3/uL (130-400); RBC 3.81 10x6/uL (4.20-6.10); RDW 16.4 % (11.5-14.5); WBC 9.3 10x3/uL (4.8-10.8)
[2017-03-24 05:43] LABS: ANION GAP 13.8 mmol/L (8-16); BILIRUBIN - TOTAL 1.35 mg/dL (0.2-1.3); CALCIUM 7.3 mg/dL (8.5-10.1); CARBON DIOXIDE 26.5 mmol/L (21.0-32.0); POTASSIUM - SERUM 4.3 mmol/L (3.5-5.1); VANCOMYCIN - RANDOM 20.7 ug/mL (10.0-20.0)
[2017-03-25] VITALS (35 sets, daily range): BP systolic 80–128; BP diastolic 44–70
[2017-03-25 03:42] LABS: BASOPHILS 0.1 % (0-2); EOSINOPHILS 1.4 % (0-7); HEMATOCRIT 32.3 % (42.0-54.0); HEMOGLOBIN 11.1 g/dL (13.5-17.5); IMMATURE GRANULOCYTES 0.3 % (0-5); LYMPHOCYTES 4.8 % (15-50); MCH 30.2 pg (26.0-34.0); MCHC 34.4 g/dL (31.0-37.0); MCV 87.8 fL (80.0-100.0); MONOCYTES 8.1 % (2-11); NEUTROPHILS 85.3 % (40-80); RBC 3.68 10x6/uL (4.20-6.10); RDW 16.2 % (11.5-14.5); WBC 7.7 10x3/uL (4.8-10.8)
[2017-03-25 03:43] LABS: PLATELET COUNT 22 10x3/uL (130-400)
[2017-03-25 04:12] LABS: ALBUMIN 1.7 g/dL (3.4-5.0); ANION GAP 12.3 mmol/L (8-16); BILIRUBIN - TOTAL 1.21 mg/dL (0.2-1.3); CALCIUM 7.3 mg/dL (8.5-10.1); CREATININE - SERUM 3.3 mg/dL (0.6-1.3); POTASSIUM - SERUM 4.3 mmol/L (3.5-5.1); PROTEIN - SERUM 5.8 g/dL (6.4-8.2)
[2017-03-25 10:31] LABS: APTT 30.3 SECONDS (22.8-39.4); INR 1.2 (0.85-1.17); PROTIME 14.8 SECONDS (11.6-15.0)
[2017-03-25 10:55] LABS: D-DIMER-QUANTITATIVE 4.71 ug/mLFEU (0.20-0.54)
[2017-03-26] VITALS (23 sets, daily range): BP systolic 99–141; BP diastolic 54–81
[2017-03-26 06:02] LABS: BASOPHILS 0.4 % (0-2); EOSINOPHILS 2.1 % (0-7); HEMATOCRIT 32.8 % (42.0-54.0); IMMATURE GRANULOCYTES 0.3 % (0-5); LYMPHOCYTES 10.1 % (15-50); MCH 30.1 pg (26.0-34.0); MCHC 33.5 g/dL (31.0-37.0); MONOCYTES 7.4 % (2-11); NEUTROPHILS 79.7 % (40-80); RBC 3.65 10x6/uL (4.20-6.10); RDW 16.6 % (11.5-14.5); WBC 7.6 10x3/uL (4.8-10.8)
[2017-03-26 06:16] LABS: MCV 89.9 fL (80.0-100.0); PLATELET COUNT 64 10x3/uL (130-400)
[2017-03-26 07:09] LABS: CREATININE - SERUM 3.9 mg/dL (0.6-1.3); POTASSIUM - SERUM 4.7 mmol/L (3.5-5.1)
[2017-03-26 07:10] LABS: ALBUMIN 1.7 g/dL (3.4-5.0); ANION GAP 14.5 mmol/L (8-16); BILIRUBIN - TOTAL 1.17 mg/dL (0.2-1.3); CALCIUM 8.2 mg/dL (8.5-10.1); CARBON DIOXIDE 26.2 mmol/L (21.0-32.0); PROTEIN - SERUM 6.4 g/dL (6.4-8.2); VANCOMYCIN - RANDOM 17.6 ug/mL (10.0-20.0)
[2017-03-27] VITALS (23 sets, daily range): BP systolic 98–129; BP diastolic 47–69
[2017-03-27 05:18] LABS: BASOPHILS 0.9 % (0-2); EOSINOPHILS 1.9 % (0-7); HEMATOCRIT 32.2 % (42.0-54.0); HEMOGLOBIN 11.4 g/dL (13.5-17.5); IMMATURE GRANULOCYTES 0.9 % (0-5); LYMPHOCYTES 11.8 % (15-50); MCH 31.5 pg (26.0-34.0); MCHC 35.4 g/dL (31.0-37.0); MONOCYTES 7.8 % (2-11); NEUTROPHILS 76.7 % (40-80); PLATELET COUNT 75 10x3/uL (130-400); RBC 3.62 10x6/uL (4.20-6.10); RDW 16.4 % (11.5-14.5); WBC 6.9 10x3/uL (4.8-10.8)
[2017-03-27 07:00] LABS: MAGNESIUM - SERUM 2.3 mg/dL (1.8-2.4); PHOSPHOROUS 4.4 mg/dL (2.5-4.9)
[2017-03-27 07:01] LABS: ANION GAP 17.9 mmol/L (8-16); BILIRUBIN - TOTAL 0.77 mg/dL (0.2-1.3); CALCIUM 7.7 mg/dL (8.5-10.1); CARBON DIOXIDE 23.5 mmol/L (21.0-32.0); CREATININE - SERUM 4.5 mg/dL (0.6-1.3); POTASSIUM - SERUM 4.4 mmol/L (3.5-5.1); PROTEIN - SERUM 5.3 g/dL (6.4-8.2); VANCOMYCIN - RANDOM 12.3 ug/mL (10.0-20.0)
[2017-03-27 15:14] LABS: FUNGUS STAIN Final report (())
[2017-03-27 19:09] LABS: AFB SPECIMEN PROCESSING Concentration (())
[2017-03-28] VITALS (25 sets, daily range): BP systolic 100–135; BP diastolic 53–583
[2017-03-28 04:45] LABS: BASOPHILS 0.2 % (0-2); EOSINOPHILS 2.3 % (0-7); HEMATOCRIT 31.1 % (42.0-54.0); HEMOGLOBIN 11.3 g/dL (13.5-17.5); IMMATURE GRANULOCYTES 0.7 % (0-5); LYMPHOCYTES 11.5 % (15-50); MCH 32.2 pg (26.0-34.0); MCHC 36.3 g/dL (31.0-37.0); MCV 88.6 fL (80.0-100.0); MONOCYTES 5.7 % (2-11); NEUTROPHILS 79.6 % (40-80); RBC 3.51 10x6/uL (4.20-6.10); RDW 16.3 % (11.5-14.5)
[2017-03-28 04:48] LABS: PLATELET COUNT 97 10x3/uL (130-400); WBC 8.8 10x3/uL (4.8-10.8)
[2017-03-28 05:35] LABS: CREATININE - SERUM 4.7 mg/dL (0.6-1.3); PHOSPHOROUS 5.8 mg/dL (2.5-4.9); POTASSIUM - SERUM 5.5 mmol/L (3.5-5.1)
[2017-03-28 05:36] LABS: ANION GAP 20.3 mmol/L (8-16); CALCIUM 7.2 mg/dL (8.5-10.1); CARBON DIOXIDE 19.2 mmol/L (21.0-32.0)
[2017-03-28 07:53] LABS: INR 1.2 (0.85-1.17); PROTIME 14.8 SECONDS (11.6-15.0)
[2017-03-28 07:54] LABS: APTT 26.1 SECONDS (22.8-39.4)
[2017-03-28 15:00] LABS: APPEARANCE TURBID (CLEAR); BILIRUBIN NEGATIVE (NEGATIVE); COLOR RED (YELLOW); GLUCOSE NEGATIVE (NEGATIVE); KETONE NEGATIVE (NEGATIVE); NITRITE NEGATIVE (NEGATIVE); PROTEIN 2+ mg/dL (NEGATIVE); SPECIFIC GRAVITY 1.015 (1.005-1.020); UROBILINOGEN NORMAL (NORMAL)
[2017-03-28 15:02] LABS: EPITHELIAL CELLS 0-5 /hpf (0-5); RED CELLS - URINE >50 /hpf (0-5)
[2017-03-28 15:03] LABS: BACTERIA FEW /hpf (NONE SEEN); MUCUS <1+ /lpf (NONE SEEN)
[2017-03-28 16:56] LABS: ANION GAP 23.1 mmol/L (8-16); CARBON DIOXIDE 20.3 mmol/L (21.0-32.0); POTASSIUM - SERUM 5.4 mmol/L (3.5-5.1)
[2017-03-28 17:05] LABS: CREATININE - SERUM 4.6 mg/dL (0.6-1.3)
[2017-03-28 17:10] LABS: CALCIUM 5.9 mg/dL (8.5-10.1)
[2017-03-29] VITALS (24 sets, daily range): BP systolic 99–150; BP diastolic 50–74
[2017-03-29 04:02] LABS: BASOPHILS 0.3 % (0-2); EOSINOPHILS 1.8 % (0-7); HEMATOCRIT 29.2 % (42.0-54.0); HEMOGLOBIN 10.6 g/dL (13.5-17.5); IMMATURE GRANULOCYTES 0.9 % (0-5); LYMPHOCYTES 8.8 % (15-50); MCH 31.5 pg (26.0-34.0); MCHC 36.3 g/dL (31.0-37.0); MONOCYTES 3.6 % (2-11); NEUTROPHILS 84.6 % (40-80); PLATELET COUNT 103 10x3/uL (130-400); RBC 3.37 10x6/uL (4.20-6.10); RDW 15.7 % (11.5-14.5)
[2017-03-29 04:06] LABS: MCV 86.6 fL (80.0-100.0)
[2017-03-29 04:29] LABS: ANION GAP 28.3 mmol/L (8-16); PHOSPHOROUS 5.6 mg/dL (2.5-4.9); POTASSIUM - SERUM 4.9 mmol/L (3.5-5.1); VANCOMYCIN - RANDOM 7.5 ug/mL (10.0-20.0)
[2017-03-29 04:30] LABS: CARBON DIOXIDE 12.6 mmol/L (21.0-32.0); CREATININE - SERUM 4.5 mg/dL (0.6-1.3)
[2017-03-30] VITALS (24 sets, daily range): BP systolic 93–161; BP diastolic 47–79
[2017-03-30 07:55] LABS: BASOPHILS 0.3 % (0-2); EOSINOPHILS 1.7 % (0-7); HEMATOCRIT 26.4 % (42.0-54.0); HEMOGLOBIN 9.2 g/dL (13.5-17.5); IMMATURE GRANULOCYTES 0.7 % (0-5); LYMPHOCYTES 12.7 % (15-50); MCH 30.8 pg (26.0-34.0); MCHC 34.8 g/dL (31.0-37.0); MCV 88.3 fL (80.0-100.0); MONOCYTES 3.1 % (2-11); NEUTROPHILS 81.5 % (40-80); PLATELET COUNT 131 10x3/uL (130-400); RBC 2.99 10x6/uL (4.20-6.10); RDW 15.8 % (11.5-14.5); WBC 7.1 10x3/uL (4.8-10.8)
[2017-03-30 08:48] LABS: PHOSPHOROUS 6.2 mg/dL (2.5-4.9)
[2017-03-30 08:49] LABS: ANION GAP 20.3 mmol/L (8-16); CARBON DIOXIDE 21.4 mmol/L (21.0-32.0); CREATININE - SERUM 3.9 mg/dL (0.6-1.3); POTASSIUM - SERUM 4.7 mmol/L (3.5-5.1)
[2017-03-30 08:50] LABS: CALCIUM 7.2 mg/dL (8.5-10.1)
[2017-03-31] VITALS (23 sets, daily range): BP systolic 97–136; BP diastolic 47–67
[2017-03-31 05:17] LABS: BASOPHILS 0.4 % (0-2); EOSINOPHILS 2.3 % (0-7); HEMATOCRIT 25.6 % (42.0-54.0); HEMOGLOBIN 8.6 g/dL (13.5-17.5); IMMATURE GRANULOCYTES 0.8 % (0-5); LYMPHOCYTES 11.3 % (15-50); MCH 29.9 pg (26.0-34.0); MCHC 33.6 g/dL (31.0-37.0); MCV 88.9 fL (80.0-100.0); MEAN PLATELET VOLUME 13.2 fL (7.4-10.4); MONOCYTES 2.5 % (2-11); NEUTROPHILS 82.7 % (40-80); PLATELET COUNT 135 10x3/uL (130-400); RBC 2.88 10x6/uL (4.20-6.10); RDW 15.7 % (11.5-14.5); WBC 7.9 10x3/uL (4.8-10.8)
[2017-03-31 05:35] LABS: ANION GAP 26.3 mmol/L (8-16); CALCIUM 7.6 mg/dL (8.5-10.1); CARBON DIOXIDE 11.9 mmol/L (21.0-32.0); CREATININE - SERUM 3.7 mg/dL (0.6-1.3); PHOSPHOROUS 5.3 mg/dL (2.5-4.9); POTASSIUM - SERUM 4.2 mmol/L (3.5-5.1)
[2017-04-01] VITALS (22 sets, daily range): BP systolic 91–139; BP diastolic 45–69
[2017-04-01 05:21] LABS: BASOPHILS 0.1 % (0-2); EOSINOPHILS 2.6 % (0-7); HEMATOCRIT 25.9 % (42.0-54.0); HEMOGLOBIN 8.5 g/dL (13.5-17.5); IMMATURE GRANULOCYTES 0.5 % (0-5); LYMPHOCYTES 11.7 % (15-50); MCH 29.7 pg (26.0-34.0); MCHC 32.8 g/dL (31.0-37.0); MCV 90.6 fL (80.0-100.0); MEAN PLATELET VOLUME 12.7 fL (7.4-10.4); MONOCYTES 3.3 % (2-11); NEUTROPHILS 81.8 % (40-80); RBC 2.86 10x6/uL (4.20-6.10); RDW 15.7 % (11.5-14.5); WBC 8.1 10x3/uL (4.8-10.8)
[2017-04-01 05:26] LABS: PLATELET COUNT 174 10x3/uL (130-400)
[2017-04-01 05:32] LABS: ANION GAP 18.6 mmol/L (8-16); CALCIUM 8.3 mg/dL (8.5-10.1); CREATININE - SERUM 3.7 mg/dL (0.6-1.3); POTASSIUM - SERUM 3.9 mmol/L (3.5-5.1)
[2017-04-01 05:34] LABS: CARBON DIOXIDE 18.3 mmol/L (21.0-32.0)
[2017-04-02] VITALS (24 sets, daily range): BP systolic 88–121; BP diastolic 45–63
[2017-04-02 04:24] LABS: BASOPHILS 0.5 % (0-2); EOSINOPHILS 2.7 % (0-7); HEMATOCRIT 26.2 % (42.0-54.0); HEMOGLOBIN 8.7 g/dL (13.5-17.5); IMMATURE GRANULOCYTES 1.1 % (0-5); LYMPHOCYTES 14.2 % (15-50); MCHC 33.2 g/dL (31.0-37.0); MCV 90.3 fL (80.0-100.0); MEAN PLATELET VOLUME 12.3 fL (7.4-10.4); NEUTROPHILS 78.5 % (40-80); PLATELET COUNT 207 10x3/uL (130-400); RDW 15.5 % (11.5-14.5); WBC 8.1 10x3/uL (4.8-10.8)
[2017-04-02 05:01] LABS: ANION GAP 19.2 mmol/L (8-16); CALCIUM 8.1 mg/dL (8.5-10.1); CARBON DIOXIDE 18.5 mmol/L (21.0-32.0); CREATININE - SERUM 3.5 mg/dL (0.6-1.3); MAGNESIUM - SERUM 2.5 mg/dL (1.8-2.4); PHOSPHOROUS 4.5 mg/dL (2.5-4.9); POTASSIUM - SERUM 3.7 mmol/L (3.5-5.1)
[2017-04-03] VITALS (24 sets, daily range): BP systolic 97–137; BP diastolic 47–65
[2017-04-03 06:14] LABS: BASOPHILS 0.3 % (0-2); EOSINOPHILS 2.3 % (0-7); HEMATOCRIT 24.7 % (42.0-54.0); HEMOGLOBIN 8.2 g/dL (13.5-17.5); IMMATURE GRANULOCYTES 0.4 % (0-5); LYMPHOCYTES 10.7 % (15-50); MCH 29.4 pg (26.0-34.0); MCHC 33.2 g/dL (31.0-37.0); MCV 88.5 fL (80.0-100.0); MEAN PLATELET VOLUME 12.3 fL (7.4-10.4); MONOCYTES 4.1 % (2-11); NEUTROPHILS 82.2 % (40-80); PLATELET COUNT 234 10x3/uL (130-400); RBC 2.79 10x6/uL (4.20-6.10); RDW 15.7 % (11.5-14.5)
[2017-04-03 06:59] LABS: % SATURATION 16 % (15-55); IRON 27 ug/dl (35-150); TOTAL IRON BIND CAPACITY 165 ug/dl (260-445); UNSAT IRON BIND CAPACITY 138 ug/dl (150-375)
[2017-04-03 07:01] LABS: ALBUMIN 2.5 g/dL (3.4-5.0); ANION GAP 20.3 mmol/L (8-16); BILIRUBIN - TOTAL 0.48 mg/dL (0.2-1.3); CALCIUM 8.5 mg/dL (8.5-10.1); CREATININE - SERUM 3.3 mg/dL (0.6-1.3); MAGNESIUM - SERUM 2.4 mg/dL (1.8-2.4); POTASSIUM - SERUM 3.3 mmol/L (3.5-5.1)
[2017-04-04] VITALS (24 sets, daily range): BP systolic 106–153; BP diastolic 54–80
[2017-04-04 05:52] LABS: BASOPHILS 0.3 % (0-2); EOSINOPHILS 3.4 % (0-7); HEMATOCRIT 22.8 % (42.0-54.0); HEMOGLOBIN 7.7 g/dL (13.5-17.5); IMMATURE GRANULOCYTES 0.3 % (0-5); LYMPHOCYTES 11.4 % (15-50); MCH 29.8 pg (26.0-34.0); MCHC 33.8 g/dL (31.0-37.0); MCV 88.4 fL (80.0-100.0); MEAN PLATELET VOLUME 11.9 fL (7.4-10.4); MONOCYTES 4.8 % (2-11); NEUTROPHILS 79.8 % (40-80); PLATELET COUNT 278 10x3/uL (130-400); RBC 2.58 10x6/uL (4.20-6.10); RDW 15.7 % (11.5-14.5)
[2017-04-04 06:13] LABS: ALBUMIN 2.3 g/dL (3.4-5.0); ANION GAP 17.5 mmol/L (8-16); BILIRUBIN - TOTAL 0.4 mg/dL (0.2-1.3); CALCIUM 8.4 mg/dL (8.5-10.1); CARBON DIOXIDE 20.6 mmol/L (21.0-32.0); CREATININE - SERUM 2.9 mg/dL (0.6-1.3); POTASSIUM - SERUM 3.1 mmol/L (3.5-5.1); PROTEIN - SERUM 6.8 g/dL (6.4-8.2)
[2017-04-05] VITALS (25 sets, daily range): BP systolic 112–180; BP diastolic 61–85
[2017-04-05 07:23] LABS: ANION GAP 18.9 mmol/L (8-16); CALCIUM 8.9 mg/dL (8.5-10.1); CARBON DIOXIDE 19.8 mmol/L (21.0-32.0); CREATININE - SERUM 2.8 mg/dL (0.6-1.3); POTASSIUM - SERUM 3.7 mmol/L (3.5-5.1)
[2017-04-05 08:14] LABS: BASOPHILS 0.5 % (0-2); EOSINOPHILS 5.3 % (0-7); HEMATOCRIT 24.3 % (42.0-54.0); HEMOGLOBIN 8.1 g/dL (13.5-17.5); IMMATURE GRANULOCYTES 0.3 % (0-5); LYMPHOCYTES 13.8 % (15-50); MCH 29.6 pg (26.0-34.0); MCHC 33.3 g/dL (31.0-37.0); MCV 88.7 fL (80.0-100.0); MEAN PLATELET VOLUME 11.7 fL (7.4-10.4); MONOCYTES 7.5 % (2-11); NEUTROPHILS 72.6 % (40-80); PLATELET COUNT 301 10x3/uL (130-400); RBC 2.74 10x6/uL (4.20-6.10); RDW 15.8 % (11.5-14.5)
[2017-04-05 08:21] LABS: WBC 5.9 10x3/uL (4.8-10.8)
[2017-04-06] VITALS (24 sets, daily range): BP systolic 98–174; BP diastolic 58–101
[2017-04-06 05:08] LABS: BASOPHILS 0.5 % (0-2); EOSINOPHILS 4.9 % (0-7); HEMATOCRIT 27.4 % (42.0-54.0); HEMOGLOBIN 8.9 g/dL (13.5-17.5); IMMATURE GRANULOCYTES 0.5 % (0-5); LYMPHOCYTES 20.3 % (15-50); MCH 29.3 pg (26.0-34.0); MCHC 32.5 g/dL (31.0-37.0); MCV 90.1 fL (80.0-100.0); MEAN PLATELET VOLUME 10.9 fL (7.4-10.4); MONOCYTES 6.9 % (2-11); NEUTROPHILS 66.9 % (40-80); PLATELET COUNT 303 10x3/uL (130-400); RBC 3.04 10x6/uL (4.20-6.10); RDW 16.1 % (11.5-14.5); WBC 5.8 10x3/uL (4.8-10.8)
[2017-04-06 05:57] LABS: ALBUMIN 2.5 g/dL (3.4-5.0); ANION GAP 17.2 mmol/L (8-16); BILIRUBIN - TOTAL 0.4 mg/dL (0.2-1.3); CALCIUM 9.2 mg/dL (8.5-10.1); CARBON DIOXIDE 21.4 mmol/L (21.0-32.0); CREATININE - SERUM 2.9 mg/dL (0.6-1.3); PHOSPHOROUS 5.4 mg/dL (2.5-4.9); POTASSIUM - SERUM 3.6 mmol/L (3.5-5.1); PROTEIN - SERUM 7.7 g/dL (6.4-8.2)
[2017-04-07] VITALS (24 sets, daily range): BP systolic 97–161; BP diastolic 56–90
[2017-04-07 05:12] LABS: BASOPHILS 0.6 % (0-2); EOSINOPHILS 3.7 % (0-7); HEMATOCRIT 27.2 % (42.0-54.0); HEMOGLOBIN 8.7 g/dL (13.5-17.5); IMMATURE GRANULOCYTES 0.2 % (0-5); LYMPHOCYTES 19.3 % (15-50); MCV 90.7 fL (80.0-100.0); MEAN PLATELET VOLUME 11.2 fL (7.4-10.4); MONOCYTES 10.2 % (2-11); PLATELET COUNT 314 10x3/uL (130-400); RDW 16.5 % (11.5-14.5); WBC 5.1 10x3/uL (4.8-10.8)
[2017-04-07 05:25] LABS: ANION GAP 17.6 mmol/L (8-16); CALCIUM 9.1 mg/dL (8.5-10.1); CREATININE - SERUM 3.3 mg/dL (0.6-1.3); MAGNESIUM - SERUM 2.6 mg/dL (1.8-2.4); PHOSPHOROUS 6.2 mg/dL (2.5-4.9); POTASSIUM - SERUM 3.6 mmol/L (3.5-5.1)
[2017-04-08] VITALS (24 sets, daily range): BP systolic 94–147; BP diastolic 53–74
[2017-04-08 04:20] LABS: BASOPHILS 0.5 % (0-2); EOSINOPHILS 2.8 % (0-7); HEMATOCRIT 27.6 % (42.0-54.0); IMMATURE GRANULOCYTES 0.6 % (0-5); LYMPHOCYTES 21.2 % (15-50); MCH 29.5 pg (26.0-34.0); MCHC 32.6 g/dL (31.0-37.0); MCV 90.5 fL (80.0-100.0); MONOCYTES 9.2 % (2-11); NEUTROPHILS 65.7 % (40-80); PLATELET COUNT 325 10x3/uL (130-400); RBC 3.05 10x6/uL (4.20-6.10); RDW 16.6 % (11.5-14.5)
[2017-04-08 04:22] LABS: WBC 6.5 10x3/uL (4.8-10.8)
[2017-04-08 04:38] LABS: ANION GAP 20.3 mmol/L (8-16); CALCIUM 9.1 mg/dL (8.5-10.1); CARBON DIOXIDE 19.2 mmol/L (21.0-32.0); CREATININE - SERUM 3.2 mg/dL (0.6-1.3); MAGNESIUM - SERUM 2.6 mg/dL (1.8-2.4); PHOSPHOROUS 5.9 mg/dL (2.5-4.9); POTASSIUM - SERUM 3.5 mmol/L (3.5-5.1)
[2017-04-09] VITALS (24 sets, daily range): BP systolic 109–172; BP diastolic 61–90
[2017-04-09 04:38] LABS: BASOPHILS 0.4 % (0-2); EOSINOPHILS 4.9 % (0-7); HEMATOCRIT 27.9 % (42.0-54.0); IMMATURE GRANULOCYTES 0.8 % (0-5); LYMPHOCYTES 19.4 % (15-50); MCH 29.2 pg (26.0-34.0); MCHC 32.3 g/dL (31.0-37.0); MCV 90.6 fL (80.0-100.0); MEAN PLATELET VOLUME 11.2 fL (7.4-10.4); NEUTROPHILS 67.5 % (40-80); PLATELET COUNT 329 10x3/uL (130-400); RBC 3.08 10x6/uL (4.20-6.10); RDW 16.4 % (11.5-14.5)
[2017-04-09 05:16] LABS: ANION GAP 21.8 mmol/L (8-16); CALCIUM 9.2 mg/dL (8.5-10.1); CARBON DIOXIDE 15.7 mmol/L (21.0-32.0); CREATININE - SERUM 3.1 mg/dL (0.6-1.3); MAGNESIUM - SERUM 2.4 mg/dL (1.8-2.4); PHOSPHOROUS 6.5 mg/dL (2.5-4.9); POTASSIUM - SERUM 3.5 mmol/L (3.5-5.1)
[2017-04-10] VITALS (24 sets, daily range): BP systolic 128–170; BP diastolic 66–96
[2017-04-10 04:38] LABS: BASOPHILS 0.4 % (0-2); EOSINOPHILS 2.6 % (0-7); HEMATOCRIT 28.9 % (42.0-54.0); HEMOGLOBIN 9.1 g/dL (13.5-17.5); IMMATURE GRANULOCYTES 0.6 % (0-5); LYMPHOCYTES 11.5 % (15-50); MCH 28.5 pg (26.0-34.0); MCHC 31.5 g/dL (31.0-37.0); MCV 90.6 fL (80.0-100.0); MEAN PLATELET VOLUME 11.1 fL (7.4-10.4); MONOCYTES 6.6 % (2-11); NEUTROPHILS 78.3 % (40-80); PLATELET COUNT 317 10x3/uL (130-400); RBC 3.19 10x6/uL (4.20-6.10)
[2017-04-10 04:44] LABS: CALCIUM 9.4 mg/dL (8.5-10.1); CARBON DIOXIDE 16.4 mmol/L (21.0-32.0); CREATININE - SERUM 2.4 mg/dL (0.6-1.3); POTASSIUM - SERUM 3.4 mmol/L (3.5-5.1)
[2017-04-10 10:36] LABS: APPEARANCE CLEAR (CLEAR); BILIRUBIN NEGATIVE (NEGATIVE); COLOR YELLOW (YELLOW); GLUCOSE NEGATIVE (NEGATIVE); KETONE NEGATIVE (NEGATIVE); NITRITE POSITIVE (NEGATIVE); PROTEIN 1+ mg/dL (NEGATIVE); SPECIFIC GRAVITY 1.015 (1.005-1.020); UROBILINOGEN NORMAL (NORMAL)
[2017-04-10 10:45] LABS: BACTERIA MODERATE /hpf (NONE SEEN); EPITHELIAL CELLS 0-5 /hpf (0-5); MUCUS <1+ /lpf (NONE SEEN); RED CELLS - URINE 0-5 /hpf (0-5); YEAST NONE SEEN /hpf (NONE SEEN)
[2017-04-10 10:46] LABS: TALC POWDER CRYSTALS 0-5 /hpf (NONE SEEN)
[2017-04-10 10:47] LABS: AMORPHOUS SEDIMENT <1+ /lpf (NONE SEEN); GRANULAR CAST RARE /lpf (NONE SEEN)
[2017-04-11] VITALS (28 sets, daily range): BP systolic 116–173; BP diastolic 60–99
[2017-04-11 05:23] LABS: BASOPHILS 0.4 % (0-2); EOSINOPHILS 1.3 % (0-7); HEMATOCRIT 31.7 % (42.0-54.0); HEMOGLOBIN 10.4 g/dL (13.5-17.5); LYMPHOCYTES 11.7 % (15-50); MCHC 32.8 g/dL (31.0-37.0); MCV 91.4 fL (80.0-100.0); MEAN PLATELET VOLUME 10.6 fL (7.4-10.4); MONOCYTES 6.2 % (2-11); NEUTROPHILS 79.4 % (40-80); PLATELET COUNT 317 10x3/uL (130-400); RBC 3.47 10x6/uL (4.20-6.10); RDW 16.4 % (11.5-14.5); WBC 7.8 10x3/uL (4.8-10.8)
[2017-04-11 05:56] LABS: ANION GAP 21.8 mmol/L (8-16); CALCIUM 9.8 mg/dL (8.5-10.1); CARBON DIOXIDE 12.9 mmol/L (21.0-32.0); CREATININE - SERUM 2.3 mg/dL (0.6-1.3); POTASSIUM - SERUM 3.7 mmol/L (3.5-5.1); VANCOMYCIN - RANDOM 11.9 ug/mL (10.0-20.0)
[2017-04-11 12:59] LABS: APTT 28.2 SECONDS (22.8-39.4); INR 1.23 (0.85-1.17); PROTIME 15.1 SECONDS (11.6-15.0)
[2017-04-11 13:06] LABS: ANION GAP 24.1 mmol/L (8-16); CALCIUM 10.1 mg/dL (8.5-10.1); CARBON DIOXIDE 12.3 mmol/L (21.0-32.0); CREATININE - SERUM 2.3 mg/dL (0.6-1.3); POTASSIUM - SERUM 3.4 mmol/L (3.5-5.1)
[2017-04-12] VITALS (24 sets, daily range): BP systolic 105–170; BP diastolic 68–99
[2017-04-12 03:55] LABS: BASOPHILS 0.2 % (0-2); EOSINOPHILS 3.4 % (0-7); HEMATOCRIT 32.2 % (42.0-54.0); HEMOGLOBIN 10.2 g/dL (13.5-17.5); LYMPHOCYTES 13.9 % (15-50); MCH 28.7 pg (26.0-34.0); MCHC 31.7 g/dL (31.0-37.0); MCV 90.4 fL (80.0-100.0); MEAN PLATELET VOLUME 10.7 fL (7.4-10.4); MONOCYTES 7.1 % (2-11); NEUTROPHILS 74.4 % (40-80); PLATELET COUNT 308 10x3/uL (130-400); RBC 3.56 10x6/uL (4.20-6.10); RDW 16.7 % (11.5-14.5)
[2017-04-12 04:21] LABS: CALCIUM 9.6 mg/dL (8.5-10.1); CREATININE - SERUM 2.3 mg/dL (0.6-1.3); MAGNESIUM - SERUM 2.3 mg/dL (1.8-2.4); PHOSPHOROUS 4.5 mg/dL (2.5-4.9); POTASSIUM - SERUM 3.3 mmol/L (3.5-5.1); VANCOMYCIN - RANDOM 20.7 ug/mL (10.0-20.0)
[2017-04-12 04:36] LABS: ANION GAP 21.7 mmol/L (8-16); CARBON DIOXIDE 15.6 mmol/L (21.0-32.0)
[2017-04-13] VITALS (24 sets, daily range): BP systolic 117–166; BP diastolic 71–118
[2017-04-13 04:06] LABS: BASOPHILS 0.2 % (0-2); EOSINOPHILS 3.9 % (0-7); HEMATOCRIT 32.4 % (42.0-54.0); HEMOGLOBIN 10.5 g/dL (13.5-17.5); IMMATURE GRANULOCYTES 0.7 % (0-5); LYMPHOCYTES 13.5 % (15-50); MCHC 32.4 g/dL (31.0-37.0); MCV 89.5 fL (80.0-100.0); MEAN PLATELET VOLUME 10.7 fL (7.4-10.4); MONOCYTES 6.8 % (2-11); NEUTROPHILS 74.9 % (40-80); PLATELET COUNT 295 10x3/uL (130-400); RBC 3.62 10x6/uL (4.20-6.10); RDW 16.6 % (11.5-14.5); WBC 9.6 10x3/uL (4.8-10.8)
[2017-04-13 04:17] LABS: ANION GAP 18.8 mmol/L (8-16); CALCIUM 9.8 mg/dL (8.5-10.1); CREATININE - SERUM 2.1 mg/dL (0.6-1.3); POTASSIUM - SERUM 3.2 mmol/L (3.5-5.1); VANCOMYCIN - RANDOM 12.3 ug/mL (10.0-20.0)
[2017-04-13 04:23] LABS: CARBON DIOXIDE 20.4 mmol/L (21.0-32.0)
[2017-04-14] VITALS (24 sets, daily range): BP systolic 89–164; BP diastolic 63–126
[2017-04-14 04:26] LABS: BASOPHILS 0.2 % (0-2); EOSINOPHILS 3.6 % (0-7); HEMATOCRIT 31.6 % (42.0-54.0); HEMOGLOBIN 10.3 g/dL (13.5-17.5); IMMATURE GRANULOCYTES 0.8 % (0-5); LYMPHOCYTES 17.2 % (15-50); MCH 29.1 pg (26.0-34.0); MCHC 32.6 g/dL (31.0-37.0); MCV 89.3 fL (80.0-100.0); MEAN PLATELET VOLUME 10.9 fL (7.4-10.4); MONOCYTES 6.9 % (2-11); NEUTROPHILS 71.3 % (40-80); PLATELET COUNT 278 10x3/uL (130-400); RBC 3.54 10x6/uL (4.20-6.10); RDW 16.2 % (11.5-14.5); WBC 8.6 10x3/uL (4.8-10.8)
[2017-04-14 04:38] LABS: ANION GAP 13.7 mmol/L (8-16); CALCIUM 9.7 mg/dL (8.5-10.1); CREATININE - SERUM 1.9 mg/dL (0.6-1.3); PHOSPHOROUS 3.7 mg/dL (2.5-4.9)
[2017-04-14 04:45] LABS: CARBON DIOXIDE 28.3 mmol/L (21.0-32.0)
[2017-04-15] VITALS (24 sets, daily range): BP systolic 105–162; BP diastolic 64–108
[2017-04-15 03:53] LABS: BASOPHILS 0.1 % (0-2); EOSINOPHILS 3.1 % (0-7); HEMATOCRIT 33.5 % (42.0-54.0); HEMOGLOBIN 10.7 g/dL (13.5-17.5); IMMATURE GRANULOCYTES 0.4 % (0-5); MCH 28.7 pg (26.0-34.0); MCHC 31.9 g/dL (31.0-37.0); MCV 89.8 fL (80.0-100.0); MEAN PLATELET VOLUME 10.4 fL (7.4-10.4); NEUTROPHILS 73.4 % (40-80); RBC 3.73 10x6/uL (4.20-6.10); RDW 15.9 % (11.5-14.5); WBC 7.5 10x3/uL (4.8-10.8)
[2017-04-15 04:09] LABS: PLATELET COUNT 213 10x3/uL (130-400)
[2017-04-15 04:15] LABS: ANION GAP 15.1 mmol/L (8-16); CARBON DIOXIDE 27.6 mmol/L (21.0-32.0); CREATININE - SERUM 1.7 mg/dL (0.6-1.3); PHOSPHOROUS 3.8 mg/dL (2.5-4.9)
[2017-04-15 04:24] LABS: POTASSIUM - SERUM 3.7 mmol/L (3.5-5.1)
[2017-04-16] VITALS (24 sets, daily range): BP systolic 117–155; BP diastolic 63–93
[2017-04-16 04:09] LABS: BASOPHILS 0.2 % (0-2); EOSINOPHILS 2.4 % (0-7); HEMATOCRIT 34.4 % (42.0-54.0); IMMATURE GRANULOCYTES 0.3 % (0-5); LYMPHOCYTES 15.5 % (15-50); MCH 28.9 pg (26.0-34.0); MCV 90.5 fL (80.0-100.0); MEAN PLATELET VOLUME 11.1 fL (7.4-10.4); MONOCYTES 6.2 % (2-11); NEUTROPHILS 75.4 % (40-80); PLATELET COUNT 223 10x3/uL (130-400); RDW 16.2 % (11.5-14.5); WBC 9.3 10x3/uL (4.8-10.8)
[2017-04-16 04:10] LABS: ANION GAP 12.3 mmol/L (8-16); CALCIUM 9.4 mg/dL (8.5-10.1); CARBON DIOXIDE 29.2 mmol/L (21.0-32.0); POTASSIUM - SERUM 3.5 mmol/L (3.5-5.1)
[2017-04-17] VITALS (21 sets, daily range): BP systolic 132–165; BP diastolic 58–96
[2017-04-18 01:32] VITALS: BP 153/75
[2017-04-18 05:11] LABS: BASOPHILS 0.1 % (0-2); EOSINOPHILS 2.4 % (0-7); HEMATOCRIT 36.1 % (42.0-54.0); HEMOGLOBIN 11.4 g/dL (13.5-17.5); IMMATURE GRANULOCYTES 0.3 % (0-5); LYMPHOCYTES 21.1 % (15-50); MCH 29.2 pg (26.0-34.0); MCHC 31.6 g/dL (31.0-37.0); MCV 92.6 fL (80.0-100.0); MEAN PLATELET VOLUME 10.9 fL (7.4-10.4); MONOCYTES 7.1 % (2-11); PLATELET COUNT 165 10x3/uL (130-400); RDW 16.5 % (11.5-14.5)
[2017-04-18 06:03] LABS: ANION GAP 15.7 mmol/L (8-16); CALCIUM 9.5 mg/dL (8.5-10.1); CARBON DIOXIDE 25.7 mmol/L (21.0-32.0); CREATININE - SERUM 2.1 mg/dL (0.6-1.3); POTASSIUM - SERUM 4.4 mmol/L (3.5-5.1)
[2017-04-18 06:33] VITALS: BP 107/57
[2017-04-18 09:20] VITALS: BP 100/55
[2017-04-18 12:20] VITALS: BP 130/68
[2017-04-18 16:34] VITALS: BP 112/56
[2017-04-18 20:54] VITALS: BP 117/61
[2017-04-19 00:53] VITALS: BP 157/67
[2017-04-19 04:00] VITALS: BP 153/89
[2017-04-19 06:11] LABS: ANION GAP 17.7 mmol/L (8-16); CALCIUM 9.2 mg/dL (8.5-10.1); CARBON DIOXIDE 20.4 mmol/L (21.0-32.0)
[2017-04-19 06:14] LABS: POTASSIUM - SERUM 5.1 mmol/L (3.5-5.1)
[2017-04-19 06:18] LABS: BASOPHILS 0.2 % (0-2); EOSINOPHILS 1.1 % (0-7); HEMATOCRIT 34.4 % (42.0-54.0); HEMOGLOBIN 10.8 g/dL (13.5-17.5); IMMATURE GRANULOCYTES 0.2 % (0-5); LYMPHOCYTES 15.5 % (15-50); MCH 29.2 pg (26.0-34.0); MCHC 31.4 g/dL (31.0-37.0); MEAN PLATELET VOLUME 11.4 fL (7.4-10.4); MONOCYTES 6.5 % (2-11); NEUTROPHILS 76.5 % (40-80); PLATELET COUNT 156 10x3/uL (130-400); RDW 16.2 % (11.5-14.5); WBC 8.1 10x3/uL (4.8-10.8)
[2017-04-19 08:34] VITALS: BP 103/57
[2017-04-19 12:42] VITALS: BP 106/62
[2017-04-19 20:00] VITALS: BP 124/77
[2017-04-20] VITALS: BP 98/59
[2017-04-20 04:00] VITALS: BP 118/66
[2017-04-20 05:17] LABS: BASOPHILS 0.2 % (0-2); EOSINOPHILS 0 % (0-7); HEMATOCRIT 32.9 % (42.0-54.0); HEMOGLOBIN 10.5 g/dL (13.5-17.5); IMMATURE GRANULOCYTES 0.2 % (0-5); MCH 28.8 pg (26.0-34.0); MCHC 31.9 g/dL (31.0-37.0); MEAN PLATELET VOLUME 11.3 fL (7.4-10.4); MONOCYTES 1.8 % (2-11); NEUTROPHILS 83.8 % (40-80); PLATELET COUNT 162 10x3/uL (130-400); RBC 3.64 10x6/uL (4.20-6.10); RDW 15.8 % (11.5-14.5); WBC 6.2 10x3/uL (4.8-10.8)
[2017-04-20 05:21] LABS: MCV 90.4 fL (80.0-100.0)
[2017-04-20 05:38] LABS: ANION GAP 16.9 mmol/L (8-16); CALCIUM 9.4 mg/dL (8.5-10.1); CARBON DIOXIDE 21.7 mmol/L (21.0-32.0); POTASSIUM - SERUM 5.6 mmol/L (3.5-5.1)
[2017-04-20 05:42] LABS: PHOSPHOROUS 4.1 mg/dL (2.5-4.9)
[2017-04-20 12:23] VITALS: BP 145/76
[2017-04-20 15:48] VITALS: BP 142/71
[2017-04-20 20:00] VITALS: BP 106/55
[2017-04-20 23:53] VITALS: BP 119/66
[2017-04-21 05:57] VITALS: BP 121/69
[2017-04-21 06:28] LABS: HEMATOCRIT 32.4 % (42.0-54.0); HEMOGLOBIN 10.7 g/dL (13.5-17.5); LYMPHOCYTES 16.4 % (15-50); MCH 29.2 pg (26.0-34.0); MCV 88.5 fL (80.0-100.0); NEUTROPHILS 75.7 % (40-80); PLATELET COUNT 136 10x3/uL (130-400); RBC 3.66 10x6/uL (4.20-6.10); RDW 16.1 % (11.5-14.5); WBC 7.1 10x3/uL (4.8-10.8)
[2017-04-21 06:55] LABS: ANION GAP 15.8 mmol/L (8-16); CALCIUM 9.1 mg/dL (8.5-10.1); CARBON DIOXIDE 22.7 mmol/L (21.0-32.0); CREATININE - SERUM 2.1 mg/dL (0.6-1.3); PHOSPHOROUS 4.7 mg/dL (2.5-4.9); POTASSIUM - SERUM 4.5 mmol/L (3.5-5.1)
[2017-04-21 08:42] VITALS: BP 114/70
[2017-04-21 12:27] VITALS: BP 130/78
[2017-04-21 16:30] VITALS: BP 106/70
[2017-04-21 20:00] VITALS: BP 119/68
[2017-04-22] VITALS: BP 112/61
[2017-04-22 04:00] VITALS: BP 110/67
[2017-04-22 05:52] LABS: BASOPHILS 0.2 % (0-2); EOSINOPHILS 0.8 % (0-7); HEMATOCRIT 32.7 % (42.0-54.0); HEMOGLOBIN 10.6 g/dL (13.5-17.5); IMMATURE GRANULOCYTES 0.2 % (0-5); LYMPHOCYTES 19.4 % (15-50); MCH 29.1 pg (26.0-34.0); MCHC 32.4 g/dL (31.0-37.0); MCV 89.8 fL (80.0-100.0); MEAN PLATELET VOLUME 11.6 fL (7.4-10.4); NEUTROPHILS 71.4 % (40-80); PLATELET COUNT 153 10x3/uL (130-400); RBC 3.64 10x6/uL (4.20-6.10)
[2017-04-22 06:16] LABS: ANION GAP 17.9 mmol/L (8-16); CALCIUM 8.9 mg/dL (8.5-10.1); CARBON DIOXIDE 21.1 mmol/L (21.0-32.0); PHOSPHOROUS 3.7 mg/dL (2.5-4.9)
[2017-04-22 08:33] VITALS: BP 114/64
[2017-04-22 12:08] VITALS: BP 116/65
[2017-04-22 15:40] VITALS: BP 105/66
[2017-04-22 20:00] VITALS: BP 130/74
[2017-04-23 04:00] VITALS: BP 114/75
[2017-04-23 07:27] LABS: FUNGUS MYCOLOGY CULTURE Final report (())
[2017-04-23 09:29] VITALS: BP 138/84
[2017-04-23 14:18] VITALS: BP 132/78
[2017-04-23] MEDS ORDERED: BENADRYL25 MG PO (19:51)
[2017-04-23] MEDS ORDERED: NYSTATIN ORAL SU5 ML PO (19:51)
[2017-04-23] MEDS ORDERED: CORDARONE200 MG PO (19:52)
[2017-04-23] MEDS ORDERED: NYSTATIN1 PWD TOPICAL (19:55)
[2017-05-14 13:16] LABS: ACID FAST CULTURE Negative (()); ACID FAST SMEAR Negative (())
== END 2017-04-23 21:23 | DRG 853 ==
LOC: D.ER 20:07 → D.MS 22:57 → D.ICU 22:57 → D.MS 04-17 21:04
PROVIDERS: Emergency Medicine; Family Medicine; Internal Medicine; Internal Medicine Hematology & Oncology; Internal Medicine Nephrology; Internal Medicine Pulmonary Disease; Radiology Diagnostic Radiology; Student in an Organized Health Care Education/Training Program
PROC: 0BH17EZ Insertion of Endotracheal Airway into Trachea, Via Natural or Artificial Opening (ICD-10-PCS; principal; 2017-03-22)
PROC: 5A1955Z Respiratory Ventilation, Greater than 96 Consecutive Hours (ICD-10-PCS; 2017-03-22)
PROC: 0B978ZZ Drainage of Left Main Bronchus, Via Natural or Artificial Opening Endoscopic (ICD-10-PCS; 2017-03-23)
PROC: 0B938ZZ Drainage of Right Main Bronchus, Via Natural or Artificial Opening Endoscopic (ICD-10-PCS; 2017-03-23)
PROC: 0T743DZ Dilation of Left Kidney Pelvis with Intraluminal Device, Percutaneous Approach (ICD-10-PCS; 2017-03-28)
PROC: BT1F1ZZ Fluoroscopy of Left Kidney, Ureter and Bladder using Low Osmolar Contrast (ICD-10-PCS; 2017-03-28)
DX: A41.9 Sepsis, unspecified organism (principal); R65.21 Severe sepsis with septic shock; J96.01 Acute respiratory failure with hypoxia; N17.0 Acute kidney failure with tubular necrosis; J18.9 Pneumonia, unspecified organism; G93.41 Metabolic encephalopathy; N20.1 Calculus of ureter; A02.0 Salmonella enteritis; E87.2 Acidosis; N13.30 Unspecified hydronephrosis; T17.590A Other foreign object in bronchus causing asphyxiation, initial encounter; I48.92 Unspecified atrial flutter; E87.0 Hyperosmolality and hypernatremia; I82.619 Acute embolism and thrombosis of superficial veins of unspecified upper extremity; N39.0 Urinary tract infection, site not specified; J98.11 Atelectasis; G47.33 Obstructive sleep apnea (adult) (pediatric); E11.22 Type 2 diabetes mellitus with diabetic chronic kidney disease; I12.9 Hypertensive chronic kidney disease with stage 1 through stage 4 chronic kidney disease, or unspecified chronic kidney disease; N18.9 Chronic kidney disease, unspecified; D75.82 Heparin induced thrombocytopenia (HIT); F17.200 Nicotine dependence, unspecified, uncomplicated; E11.65 Type 2 diabetes mellitus with hyperglycemia; B96.1 Klebsiella pneumoniae [K. pneumoniae] as the cause of diseases classified elsewhere; B96.20 Unspecified Escherichia coli [E. coli] as the cause of diseases classified elsewhere; B95.2 Enterococcus as the cause of diseases classified elsewhere; I48.91 Unspecified atrial fibrillation; E83.51 Hypocalcemia; E83.39 Other disorders of phosphorus metabolism; G25.81 Restless legs syndrome; B37.2 Candidiasis of skin and nail; R21 Rash and other nonspecific skin eruption; D64.9 Anemia, unspecified

== ENCOUNTER 2017-04-23 17:33 | Inpatient (IN) | payer MEDICARE, OTHER ==
[~2017-04-23] VITALS: Ht 172.7 cm; Wt 98.4 kg
--- NOTE | ~2017-04-23 | RHP ---
PATIENT: MEREDITH POND MEDICAL RECORD: [id number] ACCOUNT: [id number] LOCATION:[facility] : 48 ADMISSION DATE: 04/23/17 REHABILITATION HISTORY AND PHYSICAL EXAMINATION POST ADMISSION PHYSICIAN EXAMINATION POST-ADMISSION PHYSICAL EXAMINATION AND HISTORY AND PHYSICAL DATE OF ADMISSION: 04/23/2017 ADMITTING DIAGNOSIS: Critical illness myopathy. HISTORY OF PRESENT ILLNESS: The patient is admitted to the inpatient rehab for critical illness myopathy. He is a 66-year-old gentleman, who is admitted to the [facility] hospital on 03/20 secondary to cough and kidney stone. The patient was on medical floor and became dyspneic as well as hypotensive, transferred to the ICU. His blood culture grew gram-positive cocci. He is on the ventilator for 17 days. He also went from acute to chronic renal failure. His creatinine went from 2.9 to 5. He is noted to have acute shortness of breath, respiratory failure, septic shock, thrombocytopenia, and urosepsis. He has acute kidney injury with known left hydronephrosis. Blood cultures grew Klebsiella and E. coli. The blood also grew out Enterococcus faecalis. CT of the abdomen and pelvis on 03/20 showed a left lower pole renal stone and a left mid ureteral stone of 4.6 mm causing proximal hydronephrosis. There was also a punctate right renal stone noted as well as an umbilical hernia, AAA of 5.3 cm, herniation of the transverse colon, and a parastomal hernia. He also had extended hospital stay with lengthy ICU stay. He has been followed by pulmonary, cardiology, nephrology, oncology, urology as well as respiratory, physical therapy, speech therapy, and occupational therapy. He has proximal weakness noted and it has been progressing slowly with therapy and his cognition is slowly clearing. He has urostomy. He was on 2 liters of nasal cannula and CPAP at home. His says it is irritating to him and he pulls it off during the night. He lives at home with his . He is very active outside during the day. His stated he was completely independent with mobility and ADLs. He is currently [id number] assist for ADLs, max assist for mobility. Him and his plan for him to return home and hopefully get back to his prior level of functioning or better if possible. Comorbidities include sepsis, hypotension, UTI, chronic renal insufficiency, coronary artery disease, diabetes, anemia, urolithiasis, acute kidney injury, acute pyelonephritis, urosepsis, history of bladder cancer, acute tubular necrosis, status post nephrostomy tube placement and removal, hypernatremia, rash, hospital-acquired pneumonia, left lower lobe atelectasis, obstructive sleep apnea, AFib, tobacco dependence in the past, iron-deficiency anemia. PAST MEDICAL HISTORY: Significant for hypertension, obstructive sleep apnea, coronary artery disease, gastroesophageal reflux disease, history of cancer of the bladder, hyperlipidemia, diabetes, thyroid problems, apnea, and bladder cancer. PAST SURGICAL HISTORY: Includes cholecystectomy, a cystectomy with ureteroileal conduit, hemorrhoidectomy, gallbladder surgery, and back surgery. ALLERGIES: STATINS, ANY TYPE OF SULFA DRUGS, LOPRESSOR, DITROPAN, PHENERGAN, AND CIPRO. HISTORY AND PHYSICAL [id number] MEREDITH POND CURRENT MEDICATIONS: Include Effexor 50 mg b.i.d., Requip 2 mg at bedtime, Lyrica 75 mg daily in the a.m. and 225 at bedtime, Percocet 10/325 one tab every 6 hours p.r.n. pain., Protonix 40 mg daily, nystatin powder as needed, Mycostatin suspension as needed, Synthroid 50 mcg daily, Zetia 10 mg daily, Colace 200 mg at bedtime, Benadryl 25 mg every 6 hours p.r.n. itching, Cordarone 200 mg b.i.d., Xanax 0.5 mg t.i.d. p.r.n., Zofran p.r.n. nausea and vomiting, and polyethylene glycol 17 grams in 8 ounces of water daily. HABITS: No history of alcohol. Does have a history of tobacco use. FAMILY HISTORY: Noncontributory. SOCIAL HISTORY: The patient hopes to return home and get back to his prior level of function with his . REVIEW OF SYSTEMS: GENERAL: Does complain of weakness. HEENT: Does complain of cold, cough, or congestion. CARDIOVASCULAR: Denies any chest pain. LUNGS: Does complain of occasional shortness of breath. PHYSICAL EXAMINATION: VITAL SIGNS: Stable, afebrile. GENERAL: A somewhat obese gentleman, in no acute distress upon exam. HEENT: Normocephalic and atraumatic. Mucosa moist. NECK: Supple. No lymphadenopathy. LUNGS: Clear at this time. HEART: Has a regular rate and rhythm. No murmurs, rubs or gallops. ABDOMEN: Benign. EXTREMITIES: No clubbing, cyanosis or edema. NEUROLOGIC: Slow to mentate, but seems intact. LABORATORY DATA: His white count is 7.3, H&H of 11 and 34, and platelet count is 140. His sodium is 135, potassium 4.3, BUN and creatinine of 37 and 1.9, and blood sugar is 125. 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 The patient has potential to make improvement. We will institute the following multidisciplinary therapies including, but not limited to physical, occupational, respiratory, speech, nutritional services, prosthetics and orthotics. Given his complex condition and risk for more complications, rehabilitation services cannot be provided at a low level of care such as a [place] facility. PLAN: 1. Admit to [facility] for intensive inpatient therapy to include the following disciplines: A. Physical therapy to improve gait, all transfer skills and bed mobility to a modified independent level. B. Occupational therapy to improve activities of daily living to a modified independent level. C. Case management to assist with discharge planning and placement options. D. Nutrition to assist with nutritional needs. E. Rehabilitation nursing to assist in monitoring the patient's underlying HISTORY AND PHYSICAL [id number] POND,MEREDITH medical conditions and to assist with any type of bowel or bladder management. 2. The patient's current medication and medical care will be continued. 3. The patient will be placed on standard fall precautions. 4. We will watch for any signs of further sepsis with this patient. 5. We will discuss this patient during care team staff meeting this week. TRANSINT:[id number] Voice Confirmation ID: [id number] DOCUMENT ID: [id number] ALISIA notes whether there has been none or any medical/functional change since admission: - No change since prescreen. ALISIA attests patient continues to be appropriate for IRF: - Continues to be appropriate. BHAKTI RUDD MD at 1020 CC: [id number] DICTATION DATE: 04/24/17 08 OIL SPRAYER: 04/24/17 1119 ADM IN [facility] [address] [place] [address]
[~2017-04-23 17:33] MED LIST changes: +HYDROCHLOROTH12.5 M1 PO
[2017-04-23] MEDS ORDERED: NYSTATIN ORAL SU5 ML PO (19:51)
[2017-04-23] MEDS ORDERED: BENADRYL25 MG PO (19:51)
[2017-04-23] MEDS ORDERED: CORDARONE200 MG PO (19:52)
[2017-04-23] MEDS ORDERED: NYSTATIN1 PWD TOPICAL (19:55)
[2017-04-23 22:57] VITALS: BP 123/78
[2017-04-24 07:18] LABS: BASOPHILS 0 % (0-2); EOSINOPHILS 0.4 % (0-7); HEMATOCRIT 33.6 % (42.0-54.0); HEMOGLOBIN 10.8 g/dL (13.5-17.5); IMMATURE GRANULOCYTES 0.1 % (0-5); LYMPHOCYTES 11.5 % (15-50); MCH 29.1 pg (26.0-34.0); MCHC 32.1 g/dL (31.0-37.0); MCV 90.6 fL (80.0-100.0); MEAN PLATELET VOLUME 11.1 fL (7.4-10.4); PLATELET COUNT 140 10x3/uL (130-400); RBC 3.71 10x6/uL (4.20-6.10); WBC 7.3 10x3/uL (4.8-10.8)
[2017-04-24 07:45] LABS: CALCIUM 9.3 mg/dL (8.5-10.1); CARBON DIOXIDE 22.3 mmol/L (21.0-32.0); CREATININE - SERUM 1.9 mg/dL (0.6-1.3); POTASSIUM - SERUM 4.3 mmol/L (3.5-5.1)
[2017-04-24 09:15] VITALS: BP 101/57
[2017-04-24 13:58] VITALS: Ht 172.7 cm; Wt 98.4 kg
[2017-04-24 22:30] VITALS: BP 117/60
[2017-04-25 00:56] VITALS: BP 135/73
[2017-04-25 07:54] VITALS: BP 131/82
[2017-04-25 22:45] VITALS: BP 133/78
[2017-04-26 06:03] LABS: BASOPHILS 0.1 % (0-2); EOSINOPHILS 0.4 % (0-7); HEMATOCRIT 32.5 % (42.0-54.0); HEMOGLOBIN 10.5 g/dL (13.5-17.5); IMMATURE GRANULOCYTES 0.3 % (0-5); LYMPHOCYTES 17.3 % (15-50); MCH 28.8 pg (26.0-34.0); MCHC 32.3 g/dL (31.0-37.0); MEAN PLATELET VOLUME 10.8 fL (7.4-10.4); MONOCYTES 11.6 % (2-11); NEUTROPHILS 70.3 % (40-80); PLATELET COUNT 125 10x3/uL (130-400); RBC 3.65 10x6/uL (4.20-6.10); RDW 15.9 % (11.5-14.5); WBC 7.9 10x3/uL (4.8-10.8)
[2017-04-26 06:17] LABS: ANION GAP 14.7 mmol/L (8-16); CALCIUM 8.7 mg/dL (8.5-10.1); CARBON DIOXIDE 21.3 mmol/L (21.0-32.0); CREATININE - SERUM 2.1 mg/dL (0.6-1.3)
[2017-04-26 07:43] VITALS: BP 117/69
[2017-04-26 20:30] VITALS: BP 122/82
[2017-04-27 08:25] VITALS: BP 111/58
[2017-04-27 19:45] VITALS: BP 117/64
[2017-04-28 08:00] VITALS: BP 114/60
[2017-04-28 20:05] VITALS: BP 114/74
[2017-04-29 06:35] LABS: BASOPHILS 0 % (0-2); HEMATOCRIT 29.4 % (42.0-54.0); HEMOGLOBIN 9.6 g/dL (13.5-17.5); IMMATURE GRANULOCYTES 0.4 % (0-5); LYMPHOCYTES 24.6 % (15-50); MCH 28.7 pg (26.0-34.0); MCHC 32.7 g/dL (31.0-37.0); MCV 87.8 fL (80.0-100.0); MEAN PLATELET VOLUME 10.3 fL (7.4-10.4); MONOCYTES 7.9 % (2-11); NEUTROPHILS 65.1 % (40-80); PLATELET COUNT 115 10x3/uL (130-400); RBC 3.35 10x6/uL (4.20-6.10); RDW 15.6 % (11.5-14.5); WBC 4.9 10x3/uL (4.8-10.8)
[2017-04-29 07:21] LABS: ANION GAP 14.8 mmol/L (8-16); CALCIUM 8.5 mg/dL (8.5-10.1); CARBON DIOXIDE 22.7 mmol/L (21.0-32.0); CREATININE - SERUM 1.8 mg/dL (0.6-1.3); POTASSIUM - SERUM 4.5 mmol/L (3.5-5.1)
[2017-04-29 08:00] VITALS: BP 111/98
[2017-04-29 22:05] VITALS: BP 118/70
[2017-04-30 09:14] VITALS: BP 126/75
[2017-04-30 20:55] VITALS: BP 126/72
[2017-05-01 06:42] LABS: BASOPHILS 0.2 % (0-2); EOSINOPHILS 2.3 % (0-7); HEMATOCRIT 29.1 % (42.0-54.0); HEMOGLOBIN 9.5 g/dL (13.5-17.5); IMMATURE GRANULOCYTES 0.3 % (0-5); LYMPHOCYTES 22.4 % (15-50); MCH 28.7 pg (26.0-34.0); MCHC 32.6 g/dL (31.0-37.0); MCV 87.9 fL (80.0-100.0); MEAN PLATELET VOLUME 10.3 fL (7.4-10.4); NEUTROPHILS 66.8 % (40-80); PLATELET COUNT 135 10x3/uL (130-400); RBC 3.31 10x6/uL (4.20-6.10); RDW 15.8 % (11.5-14.5)
[2017-05-01 06:48] LABS: CALCIUM 8.6 mg/dL (8.5-10.1); CARBON DIOXIDE 21.9 mmol/L (21.0-32.0); CREATININE - SERUM 1.8 mg/dL (0.6-1.3); POTASSIUM - SERUM 3.9 mmol/L (3.5-5.1)
[2017-05-01 07:44] VITALS: BP 115/64
[2017-05-01 21:30] VITALS: BP 123/67
[2017-05-02 04:35] VITALS: BP 144/74
[2017-05-02 08:00] VITALS: BP 112/94
[2017-05-02 19:50] VITALS: BP 124/64
[2017-05-03] MEDS ORDERED: PERCOCET 10/3251 TA1 PO (08:44)
== END 2017-05-03 12:20 | disposition home or self-care (01) | DRG 91 ==
LOC: D.REHAB 17:33
PROVIDERS: Emergency Medicine
DX: G72.81 Critical illness myopathy (principal); A41.9 Sepsis, unspecified organism; N17.0 Acute kidney failure with tubular necrosis; J18.9 Pneumonia, unspecified organism; J96.01 Acute respiratory failure with hypoxia; R65.21 Severe sepsis with septic shock; G93.41 Metabolic encephalopathy; N12 Tubulo-interstitial nephritis, not specified as acute or chronic; E87.0 Hyperosmolality and hypernatremia; J98.11 Atelectasis; N39.0 Urinary tract infection, site not specified; E11.22 Type 2 diabetes mellitus with diabetic chronic kidney disease; I12.9 Hypertensive chronic kidney disease with stage 1 through stage 4 chronic kidney disease, or unspecified chronic kidney disease; N18.3 Chronic kidney disease, stage 3 (moderate); G47.33 Obstructive sleep apnea (adult) (pediatric); I48.91 Unspecified atrial fibrillation; I25.10 Atherosclerotic heart disease of native coronary artery without angina pectoris; N20.9 Urinary calculus, unspecified; Y95 Nosocomial condition; D50.9 Iron deficiency anemia, unspecified; E11.65 Type 2 diabetes mellitus with hyperglycemia

== ENCOUNTER 2017-06-27 06:36 | Outpatient (CLI) | payer MEDICARE, OTHER ==
[~2017-06-27] VITALS: Ht 172.7 cm; Wt 104.5 kg
--- NOTE | ~2017-06-27 | HEMODYNAMI ---
PATIENT:MEREDITH POND MEDICAL RECORD: [id number] : 48 LOCATION:D.CAT ADMISSION DATE: 06/27/17 Generatedon:06/27/201710:45 Patient name: MEREDITH POND Patient #: [id number] SSN: : Date of study: 06/27/2017 Page: Of Hemodynamic Procedure Report Patient Data Patient Demographics Procedure consent was obtained First Name: MEREDITH Gender: Male Last Name: DEJAH : 1950 Patient #: [id number] Age: 66 year(s) Race: Unknown Additional ID: [id number] Contact details Address: [place] [address] State: [place] City: [place] Zip code: [address] Past Medical History Allergies Allergen Reaction Date Comments Reported Other allergy 06/27/2017 ATORVASTIN, CIPRO, CRESTOR, KEFLEX, LOVASTATIN, METOPROLOL, OXYBUTYNIN, PROMETHAZINE, SULFA, PHENERGAN Admission Admission Data Admission Date: 06/27/2017 Admission Time: 6:36 Height (in.): 5.9 BSA: 0.37 (m2) Height (cm.): 14.99 BMI: 4645.39 (kg/m2) Weight (lbs.): 230 Weight (kg.): 104.33 Lab Results Lab Result Date: 06/27/2017 Lab Result Time: 0:00 Biochemistry Name Units Result Min Max BUN mg/dl 33 --(----)-* 7 18 Creatinine mg/dl 1.8 --(----)-* 0.6 1.3 CBC Name Units Result Min Max Hemoglobin g/dl 11.6 *-(----)-- 13.5 17.5 Procedure Procedure Types Cath Procedure Diagnostic Procedure C [facility] w/Coronaries w/Grafts Sedation Charges Moderate Sedation up to 45 minutes Procedure Description Procedure Date Procedure Date: 06/27/2017 Procedure Start Time: 9:49 Procedure End Time: 10:44 Procedure Staff Name Function Shar Jurado MD Performing Physician Liset Tee RT Monitor Santos Zhang RT Scrub Natalio Mendez RN Nurse Procedure Data Cath Procedure Fluoroscopy Diagnostic fluoroscopy Total fluoroscopy Time: time: 20.4 min 20.4 min Diagnostic fluoroscopy Total fluoroscopy dose: dose: 2043 mGy 2043 mGy Contrast Material Contrast Material Type Amount (ml) Isovue 300 123 Entry Location Entry Primary Successful Side Size Upsize Upsize Entry Closure Succes sful Closure Location (Fr) 1 (Fr) 2 (Fr) Remarks Device Remarks Femoral Left 5 Fr Exoseal artery Estimated blood loss: 10 ml Diagnostic catheters Device Type Used For End Catheter Placement MULTIPACK JL 4.0 5Fr Procedure catheter MULTIPACK 3DRC 5Fr Procedure catheter DIAGNOSTIC JB3 4Fr Procedure catheter ([id number]) DIAGNOSTIC IMT 5Fr Procedure Catheter ([id number]) MULTIPACK 3DRC 5Fr Procedure catheter DIAGNOSTIC MPA-2 5Fr Procedure catheter ([id number]) MULTIPACK 3DRC 5Fr Procedure catheter DIAGNOSTIC JB3 4Fr Procedure catheter (392666) DIAGNOSTIC AL 1 5Fr Procedure catheter ([id number]) MULTIPACK Pigtail 5 Fr Procedure catheter Procedure Complications No complications Procedure Medications Medication Administration Route Dosage 0.9% NaCl I.V. 100 ml/hr Oxygen NC 2 l/min Heparin Flush Bag added to field 2 bags (1000units/500ml NS) Lidocaine 2% added to field 20 Versed I.V. 1 mg Fentanyl I.V. 50 mcg Hemodynamics Rest BSA: 0.37 (m2) HGB: 11.6 (g/dl) O2 Consumption: Estimated: 41.9 (ml/min) O2 Cons umption indexed: Estimated:113.24 (ml/min/m) Heart Rate: 62 (bpm) Pressure Samples Time Site Value (mmHg) Purpose Heart Use Rate(bpm) 10:37 LV 134/3,22 EDP 61 10:38 LV 134/0,18 EDP 63 10:38 AO 148/67(102) Pullback 59 10:38 LV 136/2,31 Pullback 59 Gradients Valve Time Site 1 Site 2 Mean SEP/DFP Peak To Heart Use (mmHg) (sec/min) Peak Rate (mmHg) (bpm) Aortic 10:38 LV AO 0 14 0 59 136/2,31 148/67(102) Calculations Valve P-P Mean Valve Index Valve Source Name Gradient Area Flow (cm2) Aortic 0 0 0 0 Snapshots Pre Cath Intra NCS Post Cath Vital Signs Time Heart Resp SPO2 etCO2 NIBP (mmHg) Rhythm Pain Sedation Rate (ipm) (%) (mmHg) Status Level (bpm) 9:29:34 60 16 93 0 148/81(130) NSR 0 (11) 10(A) , No pain 9:34:27 60 13 97 32.7 155/83(126) NSR 0 (11) 10(A) , No pain 9:39:14 60 14 95 32.7 143/83(115) NSR 0 (11) 10(A) , No pain 9:44:03 60 13 99 17.8 143/79(109) NSR 0 (11) 10(A) , No pain 9:48:51 57 20 92 9.6 135/76(104) NSR 0 (11) 9(A) , No pain 9:53:40 62 16 94 34.2 131/81(98) NSR 0 (11) 9(A) , No pain 9:58:25 62 18 94 23.1 130/75(104) NSR 0 (11) 9(A) , No pain 10:03:08 61 14 94 25.3 127/81(96) NSR 0 (11) 9(A) , No pain 10:07:54 61 19 94 33.5 137/79(109) NSR 0 (11) 9(A) , No pain 10:12:41 61 22 94 0 125/77(106) NSR 0 (11) 9(A) , No pain 10:17:28 61 21 94 10.4 129/78(103) NSR 0 (11) 9(A) , No pain 10:22:17 59 23 93 9.6 127/72(96) NSR 0 (11) 9(A) , No pain 10:27:01 60 17 94 35 128/76(103) NSR 0 (11) 9(A) , No pain 10:31:46 62 20 94 35 140/84(110) NSR 0 (11) 9(A) , No pain 10:36:33 61 24 94 34.2 134/81(107) NSR 0 (11) 9(A) , No pain 10:41:17 62 12 96 36.5 132/81(111) NSR 0 (11) 10(A) , No pain Medications Time Medication Route Dose Verified Delivered Reason Notes Effec tiveness by by 9:31:36 0.9% NaCl I.V. 100 Natalio Natalio Per ml/hr Andrea Mendez physician RN RN 9:31:48 Oxygen NC 2 Natalio Natalio Per l/min Andrea Mendez physician RN RN 9:32:03 Heparin Flush added 2 Natalio Natalio used for Bag to bags Andrea Mendez procedure (1000units/500ml field RN RN NS) 9:32:17 Lidocaine 2% added 20ml Natalio Natalio for local to vial Lorigan Lorigan anesthetic field RN RN 9:46:35 Versed I.V. 1 mg Natalio Natalio for Lorigan Lorigan sedation RN RN 9:46:52 Fentanyl I.V. 50 Natalio Natalio for mcg Lorigan Lorigan sedation RN patternator Log Time Note 9:14:13 Time tracking: Regular hours 9:14:35 Santos DAVIES(R) sent for patient. Start room use. 9:14:40 Plan of Care:Hemodynamics will remain stable., Cardiac rhythm will remain stable., Comfort level will be maintained., Respiratory function will remain adequate., Patient/ family verbilizes understanding of procedure., Procedure tolerated without complication., Recovers from procedure without complications.. 9:14:50 H&P Date Dictated: 06/25/2017 Within 30 days and on chart.. 9:15:01 Patient Height : 5.9 inches 9:15:04 Patient Weight : 230 lbs 9:16:00 Patient allergic to Other allergyATORVASTIN, CIPRO, CRESTOR, KEFLEX, LOVASTATIN, METOPROLOL, OXYBUTYNIN, PROMETHAZINE, SULFA, PHENERGAN 9:22:28 Lab Result : Creatinine 1.8 mg/dl 9:22:28 Lab Result : BUN 33 mg/dl 9:22:28 Lab Result : Hemoglobin 11.6 g/dl 9:23:24 Patient received from Pre/Post Procedure Room to CCL 1 Alert and oriented. Tansferred to table in Supine position. 9:23:25 Warm blankets applied, and rea hugger turned on for patient comfort. 9:23:25 Correct patient and procedure confirmed by team. 9:23:27 Signed procedure consent form obtained from patient. 9:23:28 ECG and BP/O2 sat monitors applied to patient. 9:28:32 Vital chart was started 9:28:38 Baseline sample Acquired. 9:31:36 0.9% NaCl 100 ml/hr I.V. was administered by Natalio Mendez RN; Per physician; 9:31:48 Oxygen 2 l/min NC was administered by Natalio Mendez RN; Per physician; 9:32:03 Heparin Flush Bag (1000units/500ml NS) 2 bags added to field was administered by Natalio Mendez RN; used for procedure; 9:32:17 Lidocaine 2% 20ml vial added to field was administered by Natalio Mendez RN; for local anesthetic; 9:36:28 Baseline sample Acquired. 9:36:35 Rhythm: sinus bradycardia 9:36:37 Full Disclosure recording started 9:36:38 Pre-procedure instructions explained to patient. 9:36:39 Pre-op teaching completed and patient verbalized understanding. 9:36:41 Family in patients room. 9:36:43 Patient NPO since Midnight. 9:36:45 Is the patient allergic to Iodine/contrast media? No. 9:36:49 Is patient on blood thinner?Yes 9:36:52 ACC The patient was administered the following blood thiners within the last 24 hours: ACCPlavix 9:36:57 Patient diabetic? Yes. 9:36:59 If diabetic: On Metformin? No 9:37:12 Previous problem with sedation/anesthesia? Yes vomiting occasionally 9:37:15 Snore? Yes 9:37:16 Sleep apnea? Yes 9:37:18 Deviated septum? No 9:37:19 Opens mouth fully? Yes 9:37:20 Sticks out tongue? Yes 9:37:24 Airway obstruction? No ? 9:37:27 Dentures? No ? 9:37:33 Pre procedure: left dorsailis pedis pulse 2+ Normal; easily identifiable; not easily obliterated 9:37:41 IV patent on arrival in left hand with 0.9% NaCl at [facility]. 9:37:44 Lab results completed and on chart. 9:37:49 Left groin area was prepped with chlora-prep and draped in sterile fashion 9:37:50 Alarms reviewed by RValeria N. 9:37:50 Sharps counted by scrub and verified by R.N. 9:41:06 --------ALL STOP TIME OUT------ 9:41:07 Final Timeout: patient, procedure, and site verified with staff and physician. All members of the team are in agreement. 9:41:08 Left groin site verified by team. 9:41:12 Physical assessment completed. ASA score P 2 - A patient with mild systemic disease as per Shar Jurado MD. 9:41:16 Sedation plan: IV Moderate Sedation Medication:Versed, Fentanyl 9:41:33 Use device set Femoral Dx 9:41:37 ACIST Syringe (37769) opened to sterile field. 9:41:38 Bag Decanter (2002S) opened to sterile field. 9:41:40 ACIST Hand Control (01290) opened to sterile field. 9:41:41 ACIST Manifold (23318) opened to sterile field. 9:41:43 Tegaderm 4 x 4 (1626W) opened to sterile field. 9:41:45 Medline Cath Pack ([id number]) opened to sterile field. 9:41:46 SHEATH 5FR [place] (BUL996) opened to sterile field. 9:41:47 DIAGNOSTIC WIRE .035 260cm J wire (706764) opened to sterile field. 9:41:49 DIAGNOSTIC Multipack 5Fr catheter set (QC1740) opened to sterile field. 9:41:49 MICROPUNCTURE 4FR [place] [employer] (N03137) opened to sterile field. 9:46:35 Versed 1 mg I.V. was administered by Natalio Mendez RN; for sedation; 9:46:52 Fentanyl 50 mcg I.V. was administered by Natalio Mendez RN; for sedation; 9:49:03 Zero performed for pressure channel P1 9:49:13 Procedure started. 9:49:17 Local anesthetic to left femerol artery with Lidocaine 2% by Shar Jurado MD.INITIAL ACCESS ONLY 9:49:42 Access obtained with 4Fr micropunture. 9:50:29 A 5 Fr sheath was inserted into the Left Femoral artery 9:51:21 A MULTIPACK JL 4.0 5Fr catheter was advanced over the wire and used for Procedure. 9:54:19 LCA angiography performed. 9:54:54 Catheter exchanged over wire. 9:54:59 A MULTIPACK 3DRC 5Fr catheter was advanced over the wire and used for Procedure. 9:56:28 RCA OCCLUDED 9:57:32 SVG TO OM1 AND OM2 10:01:48 Catheter exchanged over wire. 10:03:13 A DIAGNOSTIC JB3 4Fr catheter (239684) was advanced over the wire and used for Procedure. 10:06:04 WHOLEY 300cm 0.035 wire ([id number]) opened to sterile field. 10:07:56 WHOLEY WIRE REMOVED 10:08:54 GLIDE WIRE ANGLE 260cm (QG1690) opened to sterile field. 10:10:14 GLIDE WIRE USED TO ADVANCE JB3 10:11:29 Catheter exchanged over wire. 10:12:17 A DIAGNOSTIC IMT 5Fr Catheter ([id number]) was advanced over the wire and used for Procedure. 10:19:14 Catheter exchanged over wire. 10:19:28 A MULTIPACK 3DRC 5Fr catheter was advanced over the wire and used for Procedure. 10:21:41 LEAVITT to LAD angiography performed. 10:22:27 Catheter exchanged over wire. 10:23:31 A DIAGNOSTIC MPA-2 5Fr catheter ([id number]) was advanced over the wire and used for Procedure. 10:27:34 Catheter exchanged over wire. 10:28:12 A MULTIPACK 3DRC 5Fr catheter was advanced over the wire and used for Procedure. 10:30:57 RCA OCCLUDED AND COLLATERALIZED 10:31:02 Catheter exchanged over wire. 10:31:11 A DIAGNOSTIC JB3 4Fr catheter (537479) was advanced over the wire and used for Procedure. 10:32:29 Catheter exchanged over wire. 10:33:16 A DIAGNOSTIC AL 1 5Fr catheter (261719M) was advanced over the wire and used for Procedure. 10:34:49 SVG to OM angiography performed. 10:36:03 Catheter exchanged over wire. 10:36:34 A MULTIPACK Pigtail 5 Fr catheter was advanced over the wire and used for Procedure. 10:37:20 LV gram done using VELÁSQUEZ 10:37:23 Injector settings: Ml/sec: 12, Volume: 8, 10:37:50 Zero performed for pressure channel P1 10:38:13 LV hemodynamics recorded. 10:38:46 EF : 55 % 10:38:49 Catheter removed. 10:39:17 EXOSEAL 5Fr (EX500) opened to sterile field. 10:39:29 Sheath removed intact; hemostasis achieved with Exoseal to the Left Femoral artery. 10:39:47 Procedure ended.(Physican Out) 10:40:07 Fluoroscopy dose: 2043 mGy 10:40:07 Flurop Dose total: 2042 10:40:19 Fluoroscopy time 20.40 minutes. 10:40:47 Contrast amount:Isovue 300 123ml. 10:40:48 Sharps counted by scrub and verified by R.N. 10:40:53 Post-op/insertion site Left Femoral artery dressed using a 4 x 4 and Tegaderm. 10:41:00 Post procedure: right dorsailis pedis pulse 2+ Normal; easily identifiable; not easily obliterated. 10:41:03 Post-procedure physical assessment completed. ASA score P 2 - A patient with mild systemic disease as per Shar Jurado MD. 10:41:07 Post procedure rhythm: unchanged. 10:41:10 Estimated blood loss: 10 ml 10:41:11 Post procedure instruction explained to patient.Patient verbalizes understanding. 10:41:12 Patient needs reinforcement of post procedure teaching. 10:42:24 Procedure type changed to Cath procedure, Diagnostic procedure, LHC, LHC w/Coronaries w/Grafts, Sedation Charges, Moderate Sedation up to 45 minutes 10:43:49 Procedure and supply charges have been captured, reviewed, submitted and are correct. 10:43:52 Procedure Complication : No complications 10:43:54 Vital chart was stopped 10:43:54 See physician's report for complete and final results. 10:43:59 Report given to Pre/Post Procedure Room. 10:44:02 Patient transfered to Pre/Post Procedure Room with Bed. 10:44:04 Procedure ended. 10:44:04 Full Disclosure recording stopped 10:45:41 End room use (Document Last) Device Usage Item Name Manufacture Quantity Catalog Number Hospital Part Current Min imal Lot# / Charge Number Stock Stock Serial# Code ACIST Syringe Acist 1 43080 614505 348001 [id number] 20 (32188) Medical Systems Inc Bag Decanter Microtek 1 [id number] 06630 978248 5 () Medical Inc. ACIST Hand Acist 1 87127 729980 540559 244791 5 Control Medical (78771) Systems Inc ACIST Acist 1 97890 664136 389843 019918 5 Manifold Medical (67794) Systems Inc Tegaderm 4 x 3M 1 1626W 240044 364584 283055 5 4 (1626W) Medline Cath Cardinal 1 [id number] 076233 55824 021267 5 Pack Health ([id number]) SHEATH 5FR Terumo 1 GSS625 284412 787029 020195 40 [place] (MHE555) DIAGNOSTIC St Finn 1 806134 486421 519228 494110 30 WIRE .035 260cm J wire (521300) DIAGNOSTIC Cardinal 1 XF9868 024864 81052 758169 30 Multipack 5Fr Health catheter set (GS2687) MICROPUNCTURE Cook Medical 1 Q71180 430850 452379 028380 5 4FR Cook (Y89269) MULTIPACK JL Cardinal 1 658685 5 4.0 5Fr Health catheter MULTIPACK Cardinal 1 136282 5 3DRC 5Fr Health catheter DIAGNOSTIC Cardinal 1 532-438 179105 360551 686551 5 JB3 4Fr Health catheter (073618) WHOLEY 300cm Medtronic 1 [id number] 197970 147622 163046 3 0.035 wire (DOQM33868) GLIDE WIRE Terumo 1 SF2636 773062 211958 433879 5 ANGLE 260cm (KP6577) DIAGNOSTIC [place] 1 [id number] 339925 738986 06456 5 IMT 5Fr Scientific Catheter (982454751) DIAGNOSTIC Cardinal 1 [id number] 830401 898376 438832 5 MPA-2 5Fr Health catheter (732706P) DIAGNOSTIC AL Cardinal 1 [id number] 965385 613591 320814 15 1 5Fr Health catheter (608012D) MULTIPACK Cardinal 1 607328 5 Pigtail 5 Fr Health catheter EXOSEAL 5Fr Cardinal 1 EX500 052179 131413 930712 10 (EX500) Health Signature Audit [place] Stage Time Signature Unsigned Intra-Procedure 06/27/2017 Liset Tee 10:45:54 AM RT(R) Signatures Monitor : Liset Tee Signature : RT Date : Time : [place] [address] [address]
[~2017-06-27 06:36] MED LIST changes: +BENADRYL25 MG PO; +CORDARONE200 MG PO; +NYSTATIN ORAL SU5 ML PO; +NYSTATIN1 PWD TOPICAL
[2017-06-27] MEDS ORDERED: NORVASC10 MG PO (08:15)
[2017-06-27] MEDS ORDERED: LEVOTHYROXINE50 MCG PO (08:15)
[2017-06-27] MEDS ORDERED: ZETIA10 MG PO (08:16)
[2017-06-27] MEDS ORDERED: LYRICA100 MG PO (08:16)
[2017-06-27] MEDS ORDERED: JANUVIA100 MG PO (08:16)
[2017-06-27] MEDS ORDERED: OMEPRAZOLE20 M1 PO (08:17)
[2017-06-27] MEDS ORDERED: ROPINIROLE HCL2 MG PO (08:18)
[2017-06-27 08:27] VITALS: BP 129/68; Ht 172.7 cm; Wt 104.5 kg
[2017-06-27 08:40] LABS: BASOPHILS 0.2 % (0-2); EOSINOPHILS 3.1 % (0-7); HEMATOCRIT 36.2 % (42.0-54.0); HEMOGLOBIN 11.6 g/dL (13.5-17.5); LYMPHOCYTES 31.4 % (15-50); MCH 29.3 pg (26.0-34.0); MCV 91.4 fL (80.0-100.0); MEAN PLATELET VOLUME 9.9 fL (7.4-10.4); NEUTROPHILS 58.3 % (40-80); PLATELET COUNT 156 10x3/uL (130-400); RBC 3.96 10x6/uL (4.20-6.10); RDW 15.9 % (11.5-14.5); WBC 4.5 10x3/uL (4.8-10.8)
[2017-06-27 08:48] LABS: ANION GAP 15.7 mmol/L (8-16); CREATININE - SERUM 1.8 mg/dL (0.6-1.3); POTASSIUM - SERUM 3.7 mmol/L (3.5-5.1)
== END 2017-06-27 13:00 | disposition home or self-care (01) ==
LOC: D.CATH 06:36
PROVIDERS: Internal Medicine Cardiovascular Disease
DX: I25.119 Atherosclerotic heart disease of native coronary artery with unspecified angina pectoris (principal); R94.39 Abnormal result of other cardiovascular function study; I25.5 Ischemic cardiomyopathy; Z95.1 Presence of aortocoronary bypass graft; Z01.812 Encounter for preprocedural laboratory examination

== ENCOUNTER 2017-08-11 09:15 | Emergency (ER) | payer MEDICARE, OTHER ==
[2017-06-27 08:27] VITALS: BMI 35.0
[~2017-08-11 09:15] MED LIST changes: +LEVOTHYROXINE50 MCG PO; +LYRICA100 MG PO; +OMEPRAZOLE20 M1 PO; +ROPINIROLE HCL2 MG PO
== END 2017-08-11 10:55 | disposition home or self-care (01) ==
LOC: D.ER 09:15
DX: S40.012A Contusion of left shoulder, initial encounter (principal); V86.59XA Driver of other special all-terrain or other off-road motor vehicle injured in nontraffic accident, initial encounter; Y93.89 Activity, other specified; Y92.019 Unspecified place in single-family (private) house as the place of occurrence of the external cause; S80.12XA Contusion of left lower leg, initial encounter

== ENCOUNTER → 2017-10-16 17:04 | Outpatient (CLI) | payer MEDICARE, OTHER ==
[2017-06-27 08:27] VITALS: BMI 35.0
[2017-10-16 18:13] LABS: CHOL - HDL RATIO 5.3 ratio (2.3-4.9); LDL-HDL RATIO 2.4 ratio (1.5-3.5)
== END | disposition home or self-care (01) ==
LOC: D.LABREF 17:04
PROVIDERS: Internal Medicine Cardiovascular Disease
DX: I10 Essential (primary) hypertension (principal)

== ENCOUNTER → 2017-11-29 13:03 | Outpatient (CLI) | payer MEDICARE, OTHER ==
[2017-06-27 08:27] VITALS: BMI 35.0
== END | disposition home or self-care (01) ==
LOC: D.MRI 13:03
DX: M25.512 Pain in left shoulder (principal)

== ENCOUNTER 2018-01-07 15:15 | Inpatient (IN) | payer MEDICARE, OTHER ==
[~2018-01-07] VITALS: Ht 172.7 cm; Wt 108.9 kg
--- NOTE | ~2018-01-07 | HEMODYNAMI ---
PATIENT:MEREDITH POND MEDICAL RECORD: [id number] : 48 LOCATION:D.MS [place].2227 ADMISSION DATE: 01/07/18 Generatedon:01/08/201815:57 Patient name: MEREDITH POND Patient #: [id number] SSN: : Date of study: 01/08/2018 Page: Of Hemodynamic Procedure Report Patient Data Patient Demographics Procedure consent was obtained First Name: MEREDITH Gender: Male Last Name: DEJAH : 1950 Patient #: [id number] Age: 67 year(s) Race: Unknown Additional ID: [id number] Contact details Address: [place] [address] State: [place] City: [place] Zip code: [address] Past Medical History Allergies Allergen Reaction Date Comments Reported Other allergy 06/27/2017 ATORVASTIN, CIPRO, CRESTOR, KEFLEX, LOVASTATIN, METOPROLOL, OXYBUTYNIN, PROMETHAZINE, SULFA, PHENERGAN Other allergy 01/08/2018 STATINS Admission Admission Data Admission Date: 01/07/2018 Admission Time: 18:08 Room #: D.2227 Procedure Procedure Types Cath Procedure Peripheral Cath Diagnostic Procedure Nephro Procedure Description Procedure Date Procedure Date: 01/08/2018 Procedure Start Time: 15:30 Procedure Staff Name Function Jordan Cain MD Performing Physician Severo Pham RT Monitor Sarah Mariscal Scrub Maggie Ortega RN Nurse Procedure Data Cath Procedure Fluoroscopy Diagnostic fluoroscopy Total fluoroscopy Time: 2.4 time: 2.4 min min Diagnostic fluoroscopy Total fluoroscopy dose: 66 dose: 66 mGy mGy Contrast Material Contrast Material Type Amount (ml) Isovue 300 15 Procedure Medications Medication Administration Route Dosage Heparin Flush Bag added to field 1 bags (1000units/500ml NS) Lidocaine 1% added to field 20 Oxygen etCO2 Nasal cannula 3 l/min unlisted medication 1 Versed I.V. 1 mg Fentanyl I.V. 50 mcg Fentanyl I.V. 50 mcg Versed I.V. 1 mg Hemodynamics Rest Heart Rate: 65 (bpm) Snapshots Pre Cath Intra NCS Post Cath Vital Signs Time Heart Resp SPO2 etCO2 NIBP (mmHg) Rhythm Pain Sedation Rate (ipm) (%) (mmHg) Status Level (bpm) 15:20:13 63 11 92 38 138/79(107) NSR 0 (11) 10(A) , No pain 15:24:43 61 8 95 36.5 137/78(104) NSR 0 (11) 10(A) , No pain 15:29:13 62 14 96 36.5 138/78(108) NSR 0 (11) 10(A) , No pain 15:33:40 63 13 96 41 133/81(94) NSR 0 (11) 10(A) , No pain 15:38:08 67 14 96 41.8 126/72(94) NSR 0 (11) 10(A) , No pain 15:42:34 72 15 96 40.3 125/74(89) NSR 0 (11) 10(A) , No pain 15:46:58 71 14 93 29.8 125/78(101) NSR 0 (11) 10(A) , No pain 15:51:23 69 15 90 35 146/80(123) NSR 0 (11) 10(A) , No pain 15:55:22 0 No Cuff NSR 0 (11) 10(A) , No pain Medications Time Medication Route Dose Verified Delivered Reason Notes Effe ctiveness by by 15:19:33 Heparin Flush added 1 M J Long M J Long used for Bag to bags MD TREJO procedure (1000units/500ml field NS) 15:19:46 Lidocaine 1% added 20ml M J Long M J Long used for to vial MD TREJO procedure field 15:20:09 Oxygen etCO2 3 M J Long M J Long Nasal l/min MD TREJO cannula 15:33:51 CEFEPIME IV 1 GM M J Long Maggie Per MD Ortega RN physician 15:34:00 Versed I.V. 1 mg M J Long Maggie for MD Jordan KOWALSKI sedation 15:34:10 Fentanyl I.V. 50 M J Long Maggie for mcg MD Jordan KOWALSKI sedation 15:38:35 Fentanyl I.V. 50 M J Long Maggie for mcg MD Jordan KOWALSKI sedation 15:38:42 Versed I.V. 1 mg M J Long Maggie for MD Ortega RN sedation Procedure Log Time Note 15:16:12 Severo Pham RT (R) (CV) sent for patient. Start room use. 15:16:22 Time tracking: Regular hours (M-F 7:00 - 5:00) 15:16:30 Plan of Care:Hemodynamics will remain stable., Cardiac rhythm will remain stable., Comfort level will be maintained., Respiratory function will remain adequate., Patient/ family verbilizes understanding of procedure., Procedure tolerated without complication., Recovers from procedure without complications.. 15:16:43 Patient received from Med/Surg to IR Alert and oriented. Tansferred to table in Prone position. 15:16:45 Correct patient and procedure confirmed by team. 15:16:48 Signed procedure consent form obtained from patient. 15:16:49 ECG and BP/O2 sat monitors applied to patient. 15:16:50 Full Disclosure recording started 15:16:50 - 15:16:56 H&P Date Dictated: 01/08/2018 Within 30 days and on chart.. 15:16:58 Pre-procedure instructions explained to patient. 15:16:59 Pre-op teaching completed and patient verbalized understanding. 15:17:00 Family in waiting room. 15:17:03 Patient NPO since Midnight. 15:17:20 Patient allergic to Other allergySTATINS 15:17:25 Is patient on blood thinner?No 15:17:28 Patient diabetic? Yes. 15:17:30 If diabetic: On Metformin? No 15:17:31 - 15:17:34 ----Pre-sedation anethsthesia assessment.---- 15:17:41 Previous problem with sedation/anesthesia? No ? 15:17:43 Snore? Yes 15:17:44 Sleep apnea? Yes 15:17:46 Deviated septum? No 15:17:52 Opens mouth fully? Yes 15:17:53 Sticks out tongue? Yes 15:17:56 Airway obstruction? No ? 15:18:03 Dentures? Yes OUT 15:18:09 Patient pain scale 0/10 NO. 15:18:17 IV patent on arrival in left forearm with 0.9% NaCl at [facility]. 15:18:18 Sharps counted by scrub and verified by R.N. 15:18:19 Alarms reviewed by R. N. 15:18:33 Lumbar area was prepped with chlora-prep and draped in sterile fashion 15:18:38 Use device set IR Diagnostic 15:18:39 Bag Decanter (2002S) opened to sterile field. 15:18:40 Sterile Angiographic Pack opened to sterile field. 15:18:40 Tegaderm 4 x 4 (1626W) opened to sterile field. 15:18:47 Baseline sample Acquired. 15:18:47 Vital chart was started 15:19:33 Heparin Flush Bag (1000units/500ml NS) 1 bags added to field was administered by Jordan Cain MD; used for procedure; 15:19:46 Lidocaine 1% 20ml vial added to field was administered by Jordan Cain MD; used for procedure; 15:20:09 Oxygen 3 l/min etCO2 Nasal cannula was administered by Jordan Cain MD; ; 15:29:46 Physician arrived 15:29:46 --------ALL STOP TIME OUT------ 15:29:47 Final Timeout: patient, procedure, and site verified with staff and physician. All members of the team are in agreement. 15:29:49 Right neck site verified by team. 15:29:52 Lumbar site verified by team. 15:29:55 Sedation plan: IV Moderate Sedation Medication:Versed, Fentanyl 15:30:04 Procedure started. 15:30:12 Local anesthetic to LEFT Lumbar area with Lidocaine 1% by Jordan Cain MD.INITIAL ACCESS ONLY 15:30:24 KIT, INTRODUCER ACCUSTICK II W/C ([id number]) opened to sterile field. 15:30:25 GLIDE CATHETER 5FR ANGLED 65cm (CG507) opened to sterile field. 15:33:51 CEFEPIME 1 GM IV was administered by Maggie Ortega RN; Per physician; 15:34:00 Versed 1 mg I.V. was administered by Maggie Ortega RN; for sedation; 15:34:10 Fentanyl 50 mcg I.V. was administered by Maggie Ortega RN; for sedation ; 15:37:35 NITINOL .018 80cm wire (S999699) opened to sterile field. 15:38:35 Fentanyl 50 mcg I.V. was administered by Maggie Ortega RN; for sedation ; 15:38:42 Versed 1 mg I.V. was administered by Maggie Ortega RN; for sedation; 15:43:49 GLIDE WIRE Angled Super Stiff 180cm (OL0470) opened to sterile field. 15:46:55 Procedure ended.(Physican Out) 15:47:38 Fluoroscopy time 02.40 minutes. 15:47:41 Fluoroscopy dose: 66 mGy 15:47:41 Flurop Dose total: 66 15:47:51 Contrast amount:Isovue 300 15ml. 15:47:53 Sharps counted by scrub and verified by R.N. 15:47:59 Post-op/insertion site Left Lumbar area dressed using a 4 x 4 and Tegaderm. 15:48:05 Post Lumbar area:stable 15:56:57 Post procedure instruction explained to patient.Patient verbalizes understanding. 15:56:57 Procedure and supply charges have been captured, reviewed, submitted an d are correct. 15:57:04 Report given to Med/Surg. 15:57:07 Patient transfered to Med/Surg with Bed. 15:57:53 Vital chart was stopped Device Usage Item Name Manufacture Quantity Catalog Hospital Part Current Minimal Lot# / Number Charge Number Stock Stock Serial# Code Bag Decanter Microtek 1 [id number] 31423 [id number] 5 () Medical Inc. Sterile Cardinal 1 [id number] 861987 431464 5 Angiographic Health Pack Tegaderm 4 x 3M 1 1626W 972524 774283 370212 5 4 (1626W) KIT, [place] 1 [id number] 650604 356266 363925 5 [id number] INTRODUCER Scientific ACCUSTICK II W/C ([id number]) GLIDE Terumo 1 CG507 924357 102370 5 CATHETER 5FR ANGLED 65cm (CG507) NITINOL .018 Medtronic 1 [id number] 210094 557019 5 [id number] 80cm wire ([id number]) GLIDE WIRE Terumo 1 [id number] 407264 324569 5 Angled Super Stiff 180cm ([id number]) Signature Audit [place] Stage Time Signature Unsigned Intra-Procedure 01/08/2018 Severo 3:57:50 PM Ankit RT (R) (CV) Signatures Monitor : Severo Signature : Ankit RT Date : Time : [address] [address]
--- NOTE | ~2018-01-07 | MORECARE ---
CASE MANAGEMENT DISCHARGE SUMMARY PATIENT: MEREDITH CORDERO UNIT: [id number] ADM DATE: 01/07/18 AGE: 67 : 49 SEX: M ROOM/BED: D.2227 AUTHOR: MARY,DOC PHYSICIAN: REFERRING PHYSICIAN: CELESTE SAMPSON MD DATE OF SERVICE: 01/10/18 Discharge Plan Patient Name: MEREDITH CORDERO Facility: [facility]:[place] : 1950 Planned Disposition: Home Anticipated Discharge Date: 01/09/18 Discharge Date: Expected LOS: 2 Initial Reviewer: [email or web address] Initial Review Date: 01/07/2018 Generated: 01/10/18 1:54 pm Comments DCP- Discharge Planning Updated by [email or web address]: Kelley Polk on 01/10/18 11:[address] Met with patient and his . He is discharging home today. and patient declines need for DME or home health services. I informed them he will have 2 antibiotics at the pharmacy to picking supervisor, voiced understanding. IMM explained, signed, copy given, original placed in MR. CM will continue to follow and assist with discharge planning/needs. DCP- Discharge Planning Updated by [id number]: Kelley Polk on 01/09/18 1:[address] Received discharge order. Met with patient and family. He is recovering post op. His is a nurse and states they do not need home health services. Denies any needs. Plan is to discharge home with today. CM will continue to follow and assist with discharge planning/needs. DCP- Discharge Planning Updated by [id number]: Hailey Snell on 01/07/18 6:[address] Patient Name: MEREDITH CORDERO Admission Status: ER Accout number: [id number] Admission Date: 01-07-2018 : 1950 Admission Diagnosis: Attending: CELESTE SAMPSON Current LOS: 1 Anticipated DC Date: 01-09-2018 Planned Disposition: Home Primary Insurance: MEDICARE A & B Discharge Planning Comments: CM met with patient to complete initial dc planning assessment. CM educated patient on the CM role and verbal consent given by patient to complete assessment. Patient lives at home with his independently. At discharge patient plans to return home and feels this is a safe discharge. Patient denied known discharge needs for home health or other community resources at this time. CM will continue to follow and will assist as needed with dc plans/needs. See below for more assessment information. How many steps to enter\exit or inside your home? None * PCP Dr. 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 Checks his blood sugar Qam with range from 130 to 180. * List name and contact numbers for known caregivers / representatives who currently or will assist patient after discharge: Wendy Bhardwaj spouse - [phone] * Verbal permission to speak to the caregivers and representatives has been obtained from the patient. Yes * Community resources currently utilized None * Additional services required to return to the preadmission environment? No * Can the patient safely return to the preadmission environment? Yes * Has this patient been hospitalized within the prior 30 days at any hospital? No Transition Coach: Hailey Snell DCPIA - Discharge Planning Initial Assessment Updated by [email or web address]: Hailey Snell on 01/07/18 7:18 pm * How many steps to enter\exit or inside your home? None * PCP Dr. Sampson * Pharmacy [facility] on [address] * Preadmission Environment Home with Family * ADLs Independent * Equipment Cane Glucometer Power Chair or Electric Scooter Rolling Walker Wheelchair * Other Equipment Stated he doesn't use equipment but fixes them for other people. Checks his blood sugar Qam with range from 130 to 180. * List name and contact numbers for known caregivers / representatives who currently or will assist patient after discharge: Wendy Cordero - spouse - [phone] * Verbal permission to speak to the caregivers and representatives has been obtained from the patient. Yes * Community resources currently utilized None * Additional services required to return to the preadmission environment? No * Can the patient safely return to the preadmission environment? Yes * Has this patient been hospitalized within the prior 30 days at any hospital? No Coverage Notice Reviewer: [email or web address] Lashae Polk Notice Issued Date-Time: 01/10/2018 11:30 Notice Type: IM Discharge Notice Notice Delivered To: Patient Relationship to Patient: Self Bookkeeping Machine Operator Name: Delivery Method: HAND - Hand Delivered Lula Days: Prior Verbal Notification: Recipient Understood Notice: Yes Recipient Signature: Yes Med Rec Note Co-signed by Attending: Coverage Notice Comment: IMM explained, signed, copy given, original placed in MR Last DP export: 01/09/18 1:07 Patient Name: MEREDITH CORDERO Page [id number] at 1254 All edits/amendments must be made on the electronic document DICTATION DATE: 01/10/181253 WAREHOUSE CLERK: DEBRA 01/10/18 1254 RPT#: [id number] DC DATE: STATUS: ADM IN [facility] [address] [place] [address] END OF REPORT
--- NOTE | ~2018-01-07 | HP ---
PATIENT: MEREDITH POND MEDICAL RECORD: [id number] ACCOUNT: [id number] LOCATION:D.MS Smith2227 : [birth year] ADMISSION DATE: 01/07/18 PCP: CELESTE SAMPSON MD HISTORY AND PHYSICAL EXAMINATION DATE OF ADMISSION: 01/07/2018 CHIEF COMPLAINT: Left flank pain. HISTORY: This is a 67 year old with multiple medical problems, started having left flank pain over the last 3-4 days. He denies fever, chills, nausea, or vomiting. He has past medical history of bladder cancer and had ileal conduit surgery on 05/27/[address] Tubbs in [place] and has had problems with recurrent urinary tract infections and has had a couple of stones as well. He presented to the Emergency Department on January 07 and his urinalysis looked pretty good, particularly because there was no bacteria seen. CT of abdomen and pelvis showed mild left hydronephrosis with what appears to be a 7-mm distal left ureter stone. There were also bilateral nonobstructing stones on both sides. He is admitted for pain and treatment. PAST MEDICAL HISTORY: Diabetes, hypertension, coronary artery disease, anxiety, restless leg syndrome, COPD, bladder cancer, sleep apnea, chronic low back pain, and aortic abdominal aneurysm. PAST SURGICAL HISTORY: Coronary artery bypass surgery, cholecystectomy, lumbar spine surgery, and aortic graft placed by Dr. Pelletier earlier this year, in July. He has had cystectomy with ileal conduit placed on 05/27/2014. ALLERGIES: REPORTEDLY TO ATORVASTATIN, CIPRO, CRESTOR, KEFLEX, LOVASTATIN, METOPROLOL, OXYBUTYNIN, PHENERGAN, AND SULFA. HOME MEDICATIONS: Include Percocet q. 6 hours p.r.n. pain, Lyrica 100 mg, doxazosin 8 mg a day, omeprazole 20 mg a day, levothyroxine 100 mcg a day, ropinirole 2 mg at bedtime, allopurinol 300 mg a day, hydrochlorothiazide 12.5 a day, potassium citrate 15 mEq once a day, amlodipine 10 mg once a day, venlafaxine daily, Niacin ER 1000 daily, Zetia 10 mg daily, glimepiride 2 mg daily, Januvia 100 mg daily, Xanax 0.5 two to three times a day as needed. HABITS: He does smoke. Denies alcohol or drug use. SOCIAL HISTORY: He is retired and lives with his . FAMILY HISTORY: Father is . He had coronary artery disease and hypertension. Mother is . She had coronary artery disease and diabetes. REVIEW OF SYSTEMS: GENERAL: No major weight changes. HEENT: No particular sinus or allergy problems. RESPIRATORY: He has history of COPD. GASTROINTESTINAL: He has had some reflux. GENITOURINARY: See above history with bladder cancer, recurrent urinary infections, and recurrent stones. MUSCULOSKELETAL: He has chronic back pain, started before his back surgery. NEUROLOGIC: No seizures. No migraines. HISTORY AND PHYSICAL [id number] MEREDITH POND PSYCHIATRIC: He has anxiety. PHYSICAL EXAMINATION: VITAL SIGNS: Temperature 98.8, pulse 69, respirations 20, and blood pressure 122/62. GENERAL: He is lying comfortably in the Emergency Department. He states he is fine if he does not move. HEENT: Grossly within normal limits. NECK: Supple. HEART: Regular rate and rhythm without murmur. LUNGS: Clear to auscultation. ABDOMEN: Obese and soft. He has an ostomy bag in place. EXTREMITIES: No edema. LABORATORIES: CBC with white count 4900, hemoglobin 12, and hematocrit 36. Basic metabolic panel is okay except glucose is 268 and creatinine 1.7, which is about his baseline. Liver functions are okay. Urinalysis; yellow, hazy, 1+ blood, 2+ leukocyte esterase, 10-25 red blood cells, and 0 bacteria. DIAGNOSTIC DATA: CT of abdomen and pelvis shows mild left hydronephrosis with 7-mm distal left ureter stone. There are nonobstructing bilateral intrarenal calculi noted as well. ASSESSMENT: 1. Left ureterolithiasis. 2. Diabetes. 3. History of bladder cancer, status post cystectomy. PLAN: Pain control and IV fluids. Monitor diabetes. Dr. Will has been consulted for the stone. Other tests and procedures as warranted. TRANSINT:[id number] Voice Confirmation ID: [id number] DOCUMENT ID: [id number] CELESTE SAMPSON MD at 1357 CC: [id number] DICTATION DATE: 01/08/18 0849 SELECT BANKER: 01/08/[address] [facility] [place] [address] [place] [address]
--- NOTE | ~2018-01-07 | OP ---
PATIENT NAME: MEREDITH POND MEDICAL RECORD: [id number] :[birth year] LOCATION:D.MS Smith2227 ADMISSION DATE:01/07/18 SURGEON: ALBERTO BELTRÁN MD DATE OF OPERATION: 01/09/2018 SURGEON: Alberto Beltrán MD GENERAL ANESTHESIA: Marco Pham CRNA DIAGNOSIS: A 7 mm left distal ureteral stone, status post cystectomy and ileal conduit creation. PROCEDURE: Left percutaneous nephrolithotomy, left antegrade ureteroscopy and stone extraction, left nephrostomy tube insertion. Findings radiolucent left distal ureteral 7 mm stone, no stone seen in the kidney SPECIMEN: Left ureteral stone. BLOOD LOSS: None. CLINICAL HISTORY: This is a 67-year-old male, who had bladder cancer and he had a radical cystoprostatectomy with ileal conduit creation in [place]. I saw him last year when he presented with an acute pyelonephritis in association with a left ureteroileal anastomotic stricture. He was given nephrostomy tube decompression and later on when he was more stable, he had a balloon dilation of the left ureteral anastomosis. He comes back to the hospital now with acute left flank pain due to 7 mm stone, which is stuck in the left ureteroileal anastomosis. There was hydronephrosis proximal to the stone. Because he has no bladder, we have to go through his kidney and down the ureter in order to retrieve the stone. HE IS ALLERGIC TO STATIN, CIPRO, METOPROLOL, OXYBUTYNIN, PROMETHAZINE, AND BACTRIM. He was given Ancef IV community relations representative to the OR. His urine cultures are growing 3 different organisms. The 2 of them being Gram-negatives and one Gram-positive present. He is not having any fevers at the current time. PROCEDURE IN DETAIL: Yesterday, the interventional radiology team inserted a left nephroureteral access catheter. Today, we are going to use that access to go into his ureter through the kidney. The patient was given induction of general anesthesia while he was in supine position. He was then turned into the prone position on the Ruben frame. He was then prepped and draped. The nephroureteral catheter was accessed with an Amplatz Super Stiff wire. Once the wire was seen to exit through the ileal conduit and into the stoma bag, then we removed the nephroureteral catheter entirely and discarded it. A small incision was made on either side of the wire. The dual-lumen catheter was then inserted over the Super Stiff wire and into the proximal ureter and down through the ileal conduit. A Sensor wire was placed. The dual lumen catheter was then removed, leaving the [address] The Sensor wire was clamped to the drapes to act as a safety wire. We worked over the Super Stiff wire. The NephroMax tract dilation balloon was then inserted. The tract was dilated to 16 atmospheres with diluted contrast. The working sheath was then placed down. The balloon was then completely deflated and removed. Nephroscopy was performed using the rigid nephroscope. Looking at all the calices including into the upper pole, I could not see any other stones. We then switched to the flexible ureteroscope. This went down the ureter, which was quite dilated from hydronephrosis. No ureteral tumors were seen. At the anastomosis of the ureter to the ileal conduit, the stone was seen to be lodged. A 0-tip 4 wire basket OPERATIVE REPORT [id number] MEREDITH POND was placed around the stone and the stone was completely removed under direct vision. The stone was sent to pathology for stone analysis. Over the Super Stiff wire, we inserted the 24-Russian Malecot nephrostomy tube. Once the tube was in position, the working sheath as well as the Amplatz Super Stiff wire was removed. The safety wire was also entirely removed. The nephrostomy tube was sutured to the skin using 2-0 nylon for a drain suture. The nephrostomy tube was put to bag drainage. In my view, the patient can go home whenever we have got him on the appropriate antibiotics. He can go home with the nephrostomy tube and I will see him in followup next week to remove the nephrostomy tube. TRANSINT:[id number] Voice Confirmation ID: [id number] DOCUMENT ID: [id number] ALBERTO BELTRÁN MD at 0803 CC: [id number] DICTATION DATE: 01/09/18 1255 IRS AGENT: 01/09/182106 DIS IN 01/10/18 [address] [place] [address]
--- NOTE | ~2018-01-07 | MORECARE ---
CASE MANAGEMENT DISCHARGE SUMMARY PATIENT: MEREDITH POND UNIT: [id number] ADM DATE: 01/07/18 AGE: 67 : 49 SEX: M ROOM/BED: D.2227 AUTHOR: MARY,DOC PHYSICIAN: REFERRING PHYSICIAN: CELESTE SAMPSON MD DATE OF SERVICE: 01/10/18 Discharge Plan Patient Name: MEREDITH POND Facility: [facility]:[place] : 1950 Planned Disposition: Home Anticipated Discharge Date: 01/09/18 Discharge Date: 01/10/2018 Expected LOS: 2 Initial Reviewer: [email or web address] Initial Review Date: 01/07/2018 Generated: 01/10/18 6:00 pm Comments DCP- Discharge Planning Updated by [email or web address]: Kelley Polk on 01/10/18 11:[address] Met with patient and his . He is discharging home today. and patient declines need for DME or home health services. I informed them he will have 2 antibiotics at the pharmacy to tack picker, voiced understanding. IMM explained, signed, copy given, original placed in MR. CM will continue to follow and assist with discharge planning/needs. DCP- Discharge Planning Updated by [id number]: Kelley Polk on 01/09/18 1:[address] Received discharge order. Met with patient and family. He is recovering post op. His is a nurse and states they do not need home health services. Denies any needs. Plan is to discharge home with today. CM will continue to follow and assist with discharge planning/needs. DCP- Discharge Planning Updated by [id number]: Hailey Snell on 01/07/18 6:[address] Patient Name: MEREDITH POND Admission Status: ER Accout number: [id number] Admission Date: 01-07-2018 : 1950 Admission Diagnosis: Attending: CELESTE SAMPSON Current LOS: 1 Anticipated DC Date: 01-09-2018 Planned Disposition: Home Primary Insurance: MEDICARE A & B Discharge Planning Comments: CM met with patient to complete initial dc planning assessment. CM educated patient on the CM role and verbal consent given by patient to complete assessment. Patient lives at home with his independently. At discharge patient plans to return home and feels this is a safe discharge. Patient denied known discharge needs for home health or other community resources at this time. CM will continue to follow and will assist as needed with dc plans/needs. See below for more assessment information. How many steps to enter\exit or inside your home? None * PCP Dr. Sampson * Pharmacy [facility] on [address] * Preadmission Environment Home with Family * ADLs Independent * Equipment Cane Glucometer Power Chair or Electric Scooter Rolling Walker Wheelchair * Other Equipment Stated he doesn't use equipment but fixes them for other people. Checks his blood sugar Qam with range from 130 to 180. * List name and contact numbers for known caregivers / representatives who currently or will assist patient after discharge: Wendy abbasi - [phone] * Verbal permission to speak to the caregivers and representatives has been obtained from the patient. Yes * Community resources currently utilized None * Additional services required to return to the preadmission environment? No * Can the patient safely return to the preadmission environment? Yes * Has this patient been hospitalized within the prior 30 days at any hospital? No Cargo Broker: Hailey Snell DCPIA - Discharge Planning Initial Assessment Updated by [email or web address]: Hailey Snell on 01/07/18 7:18 pm * How many steps to enter\exit or inside your home? None * PCP Dr. Sampson * Pharmacy [facility] on [address] * Preadmission Environment Home with Family * ADLs Independent * Equipment Cane Glucometer Power Chair or Electric Scooter Rolling Walker Wheelchair * Other Equipment Stated he doesn't use equipment but fixes them for other people. Checks his blood sugar Qam with range from 130 to 180. * List name and contact numbers for known caregivers / representatives who currently or will assist patient after discharge: Wendy abbasi - [phone] * Verbal permission to speak to the caregivers and representatives has been obtained from the patient. Yes * Community resources currently utilized None * Additional services required to return to the preadmission environment? No * Can the patient safely return to the preadmission environment? Yes * Has this patient been hospitalized within the prior 30 days at any hospital? No Coverage Notice Reviewer: [id number] Lashae Polk Notice Issued Date-Time: 01/10/2018 11:30 Notice Type: IM Discharge Notice Notice Delivered To: Patient Relationship to Patient: Self Staff Design Engineer Name: Delivery Method: HAND - Hand Delivered Lula Days: Prior Verbal Notification: Recipient Understood Notice: Yes Recipient Signature: Yes Med Rec Note Co-signed by Attending: Coverage Notice Comment: IMM explained, signed, copy given, original placed in MR Last DP export: 01/10/18 11:54 Patient Name: MEREDITH POND Page [id number] at 1700 All edits/amendments must be made on the electronic document DICTATION DATE: 01/10/18 170 PLANT TAXONOMY TEACHER: DEBRA 01/10/18 1700 RPT#: [id number] DC DATE:01/10/18 STATUS: DIS IN [facility] [address] [place] [address] END OF REPORT
[2018-01-07 15:56] LABS: APPEARANCE HAZY (CLEAR); BILIRUBIN NEGATIVE (NEGATIVE); COLOR YELLOW (YELLOW); GLUCOSE NEGATIVE (NEGATIVE); KETONE NEGATIVE (NEGATIVE); NITRITE NEGATIVE (NEGATIVE); PROTEIN NEGATIVE (NEGATIVE); SPECIFIC GRAVITY 1.015 (1.005-1.020); UROBILINOGEN NORMAL (NORMAL)
[2018-01-07 15:57] LABS: BACTERIA NONE SEEN /hpf (NONE SEEN); EPITHELIAL CELLS NSEEN /hpf (0-5); WHITE CELLS - URINE 0-5 /hpf (0-5)
[2018-01-07 16:01] LABS: BASOPHILS 0.2 % (0-2); EOSINOPHILS 1.8 % (0-7); HEMATOCRIT 36.1 % (42.0-54.0); IMMATURE GRANULOCYTES 0.4 % (0-5); LYMPHOCYTES 22.6 % (15-50); MCH 28.9 pg (26.0-34.0); MCHC 33.2 g/dL (31.0-37.0); MEAN PLATELET VOLUME 11.4 fL (7.4-10.4); MONOCYTES 8.7 % (2-11); NEUTROPHILS 66.3 % (40-80); PLATELET COUNT 184 10x3/uL (130-400); RBC 4.15 10x6/uL (4.20-6.10); RDW 15.8 % (11.5-14.5); WBC 4.9 10x3/uL (4.8-10.8)
[2018-01-07 16:20] LABS: ALBUMIN 3.2 g/dL (3.4-5.0); ANION GAP 12.7 mmol/L (8-16); BILIRUBIN - TOTAL 0.25 mg/dL (0.2-1.3); CALCIUM 8.8 mg/dL (8.5-10.1); CARBON DIOXIDE 27.4 mmol/L (21.0-32.0); CREATININE - SERUM 1.7 mg/dL (0.6-1.3); POTASSIUM - SERUM 4.1 mmol/L (3.5-5.1); PROTEIN - SERUM 7.3 g/dL (6.4-8.2)
[2018-01-07] MEDS ORDERED: ZYLOPRIM300 MG PO (19:52)
[2018-01-07] MEDS ORDERED: CARDURA8 MG PO (19:54)
[2018-01-07] MEDS ORDERED: HYDROCHLOROTH12.5 M1 PO (19:54)
[2018-01-07] MEDS ORDERED: POTASSIUM CITRATE ER PO (19:58)
[2018-01-07] MEDS ORDERED: NIASPAN1000 MG PO (19:59)
[2018-01-07 20:00] VITALS: BP 145/79
[2018-01-07] MEDS ORDERED: GLIMEPIRIDE2 MG PO (20:00)
[2018-01-08] VITALS (9 sets, daily range): BP systolic 117–145; BP diastolic 41–83; Ht 172.7 cm; Wt 108.9 kg
[2018-01-08 09:54] LABS: BASOPHILS 0.3 % (0-2); EOSINOPHILS 2.3 % (0-7); HEMATOCRIT 37.1 % (42.0-54.0); HEMOGLOBIN 12.2 g/dL (13.5-17.5); IMMATURE GRANULOCYTES 0.3 % (0-5); LYMPHOCYTES 23.4 % (15-50); MCHC 32.9 g/dL (31.0-37.0); MCV 88.3 fL (80.0-100.0); MEAN PLATELET VOLUME 10.9 fL (7.4-10.4); MONOCYTES 6.8 % (2-11); NEUTROPHILS 66.9 % (40-80); PLATELET COUNT 167 10x3/uL (130-400); RDW 15.7 % (11.5-14.5)
[2018-01-08 10:10] LABS: ANION GAP 14.3 mmol/L (8-16); CALCIUM 8.8 mg/dL (8.5-10.1); CARBON DIOXIDE 25.9 mmol/L (21.0-32.0); CREATININE - SERUM 1.6 mg/dL (0.6-1.3); POTASSIUM - SERUM 4.2 mmol/L (3.5-5.1)
[2018-01-08 10:26] LABS: INR 1.04 (0.85-1.17); PROTIME 13.2 SECONDS (11.6-15.0)
[2018-01-08 10:27] LABS: APTT 27.2 SECONDS (22.8-39.4)
[2018-01-09 05:28] VITALS: BP 143/65
[2018-01-09 10:20] VITALS: BP 136/74
[2018-01-09 21:37] VITALS: BP 128/72
[2018-01-10] VITALS: BP 119/61
[2018-01-10 06:08] VITALS: BP 120/63
[2018-01-10 08:06] VITALS: BP 126/76
[2018-01-10 09:01] VITALS: BP 139/71
[2018-01-10] MEDS ORDERED: VIBRAMYCIN 100100 MG PO (09:03)
[2018-01-10] MEDS ORDERED: CEFUROXIME500 MG PO (09:03)
[2018-01-10 12:52] VITALS: BP 128/66
[2018-01-20 10:11] LABS: CALCULI - CA OXALATE MONOHYDR 75 % (()); CALCULI - CALCIUM PHOSPHATE 20 % (()); CALCULI - COLOR Brown (()); CALCULI - COMMENT Note: (()); CALCULI - SIZE 6x4x4 mm (())
== END 2018-01-10 14:28 | disposition home or self-care (01) | DRG 670 ==
LOC: D.ER 15:15 → D.MS 18:08
PROVIDERS: Emergency Medicine; Family Medicine; Radiology Vascular & Interventional Radiology; Urology
PROC: BT141ZZ Fluoroscopy of Kidneys, Ureters and Bladder using Low Osmolar Contrast (ICD-10-PCS; principal; 2018-01-08 15:00)
PROC: 0T9130Z Drainage of Left Kidney with Drainage Device, Percutaneous Approach (ICD-10-PCS; 2018-01-09)
PROC: 0TC78ZZ Extirpation of Matter from Left Ureter, Via Natural or Artificial Opening Endoscopic (ICD-10-PCS; 2018-01-09 09:15)
DX: N13.2 Hydronephrosis with renal and ureteral calculous obstruction (principal); E11.22 Type 2 diabetes mellitus with diabetic chronic kidney disease; N18.9 Chronic kidney disease, unspecified; I25.10 Atherosclerotic heart disease of native coronary artery without angina pectoris; Z95.1 Presence of aortocoronary bypass graft; Z95.5 Presence of coronary angioplasty implant and graft; G25.81 Restless legs syndrome; F41.8 Other specified anxiety disorders; E78.5 Hyperlipidemia, unspecified; Z85.51 Personal history of malignant neoplasm of bladder

== ENCOUNTER 2018-01-17 11:45 | Emergency (ER) | payer MEDICARE, OTHER ==
[~2018-01-17] VITALS: Ht 172.7 cm; Wt 109.1 kg
[~2018-01-17 11:45] MED LIST changes: +CEFUROXIME500 MG PO; +POTASSIUM CITRATE ER PO; +VIBRAMYCIN 100100 MG PO; +ZYLOPRIM300 MG PO
[2018-01-17 12:42] VITALS: Ht 172.7 cm; Wt 109.1 kg
[2018-01-17 14:02] LABS: APPEARANCE CLOUDY (CLEAR); BILIRUBIN NEGATIVE (NEGATIVE); COLOR YELLOW (YELLOW); GLUCOSE NEGATIVE (NEGATIVE); KETONE NEGATIVE (NEGATIVE); NITRITE POSITIVE (NEGATIVE); PROTEIN 2+ mg/dL (NEGATIVE); UROBILINOGEN NORMAL (NORMAL)
[2018-01-17 14:03] LABS: AMORPHOUS SEDIMENT <1+ /lpf (NONE SEEN); BACTERIA NONE SEEN /hpf (NONE SEEN); EPITHELIAL CELLS NSEEN /hpf (0-5); RED CELLS - URINE 0-5 /hpf (0-5); WHITE CELLS - URINE 0-5 /hpf (0-5)
[2018-01-17 14:17] LABS: BASOPHILS 0.2 % (0-2); EOSINOPHILS 2.2 % (0-7); HEMATOCRIT 37.3 % (42.0-54.0); HEMOGLOBIN 12.1 g/dL (13.5-17.5); IMMATURE GRANULOCYTES 0.2 % (0-5); LYMPHOCYTES 24.6 % (15-50); MCHC 32.4 g/dL (31.0-37.0); MCV 86.3 fL (80.0-100.0); MEAN PLATELET VOLUME 10.5 fL (7.4-10.4); MONOCYTES 6.4 % (2-11); NEUTROPHILS 66.4 % (40-80); PLATELET COUNT 173 10x3/uL (130-400); RBC 4.32 10x6/uL (4.20-6.10); RDW 15.6 % (11.5-14.5)
[2018-01-17 14:42] LABS: ALBUMIN 3.4 g/dL (3.4-5.0); ANION GAP 14.3 mmol/L (8-16); BILIRUBIN - TOTAL 0.29 mg/dL (0.2-1.3); CALCIUM 9.4 mg/dL (8.5-10.1); CARBON DIOXIDE 27.1 mmol/L (21.0-32.0); CREATININE - SERUM 1.6 mg/dL (0.6-1.3); POTASSIUM - SERUM 4.4 mmol/L (3.5-5.1); PROTEIN - SERUM 7.5 g/dL (6.4-8.2)
[2018-01-17 17:36] VITALS: BP 146/68
== END 2018-01-17 17:46 | disposition home or self-care (01) ==
LOC: D.ER 11:45
PROVIDERS: Family Medicine
DX: G89.18 Other acute postprocedural pain (principal); D64.9 Anemia, unspecified; N28.9 Disorder of kidney and ureter, unspecified; E11.9 Type 2 diabetes mellitus without complications; E07.9 Disorder of thyroid, unspecified; I10 Essential (primary) hypertension; I25.810 Atherosclerosis of coronary artery bypass graft(s) without angina pectoris; F17.200 Nicotine dependence, unspecified, uncomplicated; Z90.6 Acquired absence of other parts of urinary tract

== ENCOUNTER → 2018-01-29 10:08 | Outpatient (CLI) | payer MEDICARE, OTHER ==
[2018-01-17 12:42] VITALS: BMI 36.5
== END | disposition home or self-care (01) ==
LOC: D.LAB 10:08
DX: N20.0 Calculus of kidney (principal)

== ENCOUNTER → 2018-04-07 18:12 | Outpatient (CLI) | payer MEDICARE, OTHER ==
[2018-01-17 12:42] VITALS: BMI 36.5
[2018-04-07 18:51] LABS: CHOL - HDL RATIO 4.7 ratio (2.3-4.9); LDL-HDL RATIO 2.4 ratio (1.5-3.5)
== END | disposition home or self-care (01) ==
LOC: D.LABREF 18:12
PROVIDERS: Internal Medicine Interventional Cardiology
DX: E78.5 Hyperlipidemia, unspecified (principal)

== ENCOUNTER → 2018-04-14 09:48 | Outpatient (CLI) | payer MEDICARE, OTHER ==
[2018-01-17 12:42] VITALS: BMI 36.5
--- NOTE | 2018-04-15 15:01 | EC ---
PATIENT:MEREDITH POND DATE OF SERVICE: 04/14/18 SEX: M MEDICAL RECORD: [id number] DATE OF : [birth year] LOCATION:D.ECH AGE OF PATIENT: 67 ADMISSION DATE: 04/14/18 REFERRING PHYSICIAN: INTERPRETING PHYSICIAN: FLO PERRY MD ECHOCARDIOGRAM REPORT ECHO CHARGES 4 ECHO COMPLETE Date: 04/14/18 CLINICAL DIAGNOSIS: VA/CAD ECHOCARDIOGRAPHIC MEASUREMENTS (adult normal given) AC root (d.<3.7cm) 3.5 cm LV Septum d (<1.2 cm> 1.6 cm Valve Excursion 2.3 cm LV Septum (systole) 2.1 cm Left Atria (s.<4.0cm> 5.6 cm LVPW d(<1.2cm) 1.7 cm RV (d.<2.3cm) 2.2 cm LVPW (sytole) 2.4 cm LV diastole(<5.6CM) 6.1 cm MV E-F(>70mm/sec) cm LV systole 3.3 cm LVOT Diameter 2.1 cm MV exc.(>10mm) cm Est.ejection fraction (50-75%) % DOPPLER: LVIT cm/sec A 57.0 cm/sec E 46.0 cm/sec LA cm/sec RVSP 23.0 mmHg LVOT 143 cm/sec AOP1/2T m/s Asc. Ao 161 cm/sec RVOT 82.0 cm/sec RA cm/sec PA 118 cm/sec AV Gradient Peak 10.4 mmHg AV Mean 5.1 mmHg AV Area 3.1 cm MV Gradient Peak 3.2 mmHg MV Mean 1.1 mmHg MV Area cm COMMENTS: Drum Builder: 1 MAHIN HERNANDEZOE Painter And Body Mechanic Apprentice: 3 Dr. Zhao TAPE# PACS Pericardial Effusion N DATE OF SERVICE: 04/14/2018 Adequate 2D echo, color flow, spectral Doppler, M-Mode FINDINGS: LVH is present. LV internal dimension is normal. Wall motion is normal. EF is greater than or equal to 55%. Aortic valve sclerosis is without stenosis by Doppler interrogation. Left atrium is dilated at 5.6 cm. Mitral valve shows no prolapse. Mild MR. Right-sided chamber is grossly normal. Trace TR. ECHOCARDIOGRAM REPORT [id number] MEREDITH POND TRANSINT:[id number] Voice Confirmation ID: [id number] DOCUMENT ID: [id number] FLO PERRY MD at 1501 CC: [id number] DICTATION DATE: 04/14/18 1033 MILK BOTTLER: 04/14/18 1317 DEP CLI 04/14/18 [facility] [address] [place] [address]
== END | disposition home or self-care (01) ==
LOC: D.ECHO 09:30
DX: I21.9 Acute myocardial infarction, unspecified (principal); I25.10 Atherosclerotic heart disease of native coronary artery without angina pectoris

== ENCOUNTER → 2018-04-29 15:26 | Outpatient (CLI) | payer MEDICARE, OTHER ==
[2018-01-17 12:42] VITALS: BMI 36.5
== END | disposition home or self-care (01) ==
LOC: D.MRI 15:26
DX: M25.512 Pain in left shoulder (principal)

== ENCOUNTER 2018-05-22 05:30 | Day surgery (SDC) | payer MEDICARE, OTHER ==
[2018-05-16 10:19] LABS: BASOPHILS 0 % (0-2); EOSINOPHILS 1.2 % (0-7); HEMATOCRIT 39.7 % (42.0-54.0); HEMOGLOBIN 13.1 g/dL (13.5-17.5); LYMPHOCYTES 16.6 % (15-50); MCV 87.8 fL (80.0-100.0); MEAN PLATELET VOLUME 10.6 fL (7.4-10.4); MONOCYTES 5.2 % (2-11); RBC 4.52 10x6/uL (4.20-6.10); RDW 16.1 % (11.5-14.5); WBC 4.2 10x3/uL (4.8-10.8)
[2018-05-16 10:22] LABS: PLATELET COUNT 119 10x3/uL (130-400)
[2018-05-16 10:26] LABS: ANION GAP 18.4 mmol/L (8-16); CARBON DIOXIDE 23.5 mmol/L (21.0-32.0); CREATININE - SERUM 1.8 mg/dL (0.6-1.3); POTASSIUM - SERUM 3.9 mmol/L (3.5-5.1)
[2018-05-16 10:29] LABS: APTT 28.9 SECONDS (22.8-39.4); INR 1.07 (0.85-1.17); PROTIME 13.4 SECONDS (11.6-15.0)
[~2018-05-22] VITALS: Ht 175.3 cm; Wt 108.9 kg
[2018-05-22 06:43] VITALS: BP 143/80; Ht 175.3 cm; Wt 108.9 kg
--- NOTE | 2018-05-22 10:50 | NUR ---
PATIENT SITTING UP ON SIDE OF BED, RIGHT FOREARM PIV DC'D WITH TIP INTACT. DRESSING IN PERSONAL CLOTHING. INSTRUCTIONS GIVEN TO SPOUSE REGARDING KEEPING ARM SLING ON AND DRAPING SHIRT AROUND THE ARM INSTEAD OF PUTTING ARM IN SLEEVE
--- NOTE | 2018-05-22 11:10 | NUR ---
PATIENT DRESSED IN PERSONAL CLOTHING, DISCHARGE INSTRUCTIONS REVIEWED WITH PATIENT AND SPOUSE
== END 2018-05-22 11:18 | disposition home or self-care (01) ==
LOC: D.OPS 05:30 → D.PAN 07:30 → D.OPS 11:18
PROVIDERS: Anesthesiology; Orthopaedic Surgery
DX: M24.412 Recurrent dislocation, left shoulder (principal); Z01.812 Encounter for preprocedural laboratory examination

== ENCOUNTER → 2018-07-22 12:51 | Outpatient (CLI) | payer MEDICARE, OTHER ==
[2018-05-22 06:43] VITALS: BMI 35.5
== END | disposition home or self-care (01) ==
LOC: D.MRI 12:51
PROVIDERS: ATTEND Nurse Practitioner Family
DX: M75.112 Incomplete rotator cuff tear or rupture of left shoulder, not specified as traumatic (principal)

== ENCOUNTER 2018-08-03 17:09 | Emergency (ER) | payer MEDICARE, OTHER ==
[2018-08-03 17:09] VITALS: BMI 34.0
[2018-08-03 17:40] LABS: APPEARANCE CLEAR (CLEAR); BILIRUBIN NEGATIVE (NEGATIVE); COLOR STRAW (YELLOW); GLUCOSE NEGATIVE (NEGATIVE); KETONE NEGATIVE (NEGATIVE); NITRITE POSITIVE (NEGATIVE); PROTEIN 1+ mg/dL (NEGATIVE); UROBILINOGEN NORMAL (NORMAL)
[2018-08-03 17:44] LABS: BACTERIA FEW /hpf (NONE SEEN)
[2018-08-03 18:00] LABS: BASOPHILS 0.2 % (0-2); EOSINOPHILS 1.6 % (0-7); HEMATOCRIT 39.6 % (42.0-54.0); HEMOGLOBIN 13.4 g/dL (13.5-17.5); IMMATURE GRANULOCYTES 0.2 % (0-5); LYMPHOCYTES 25.1 % (15-50); MCH 29.7 pg (26.0-34.0); MCHC 33.8 g/dL (31.0-37.0); MCV 87.8 fL (80.0-100.0); MEAN PLATELET VOLUME 10.6 fL (7.4-10.4); MONOCYTES 7.4 % (2-11); NEUTROPHILS 65.5 % (40-80); PLATELET COUNT 121 10x3/uL (130-400); RBC 4.51 10x6/uL (4.20-6.10); RDW 16.4 % (11.5-14.5); WBC 4.5 10x3/uL (4.8-10.8)
[2018-08-03 18:13] LABS: ALBUMIN 3.5 g/dL (3.4-5.0); ANION GAP 12.6 mmol/L (8-16); BILIRUBIN - TOTAL 0.33 mg/dL (0.2-1.3); CALCIUM 8.9 mg/dL (8.5-10.1); CARBON DIOXIDE 28.2 mmol/L (21.0-32.0); CREATININE - SERUM 1.7 mg/dL (0.6-1.3); POTASSIUM - SERUM 3.8 mmol/L (3.5-5.1); PROTEIN - SERUM 7.2 g/dL (6.4-8.2)
[2018-08-03] MEDS ORDERED: LEVOFLOXACIN500 MG PO (19:19)
[2018-08-03 20:00] VITALS: BP 132/89
== END 2018-08-03 20:00 | disposition home or self-care (01) ==
LOC: D.ER 17:09
PROVIDERS: Emergency Medicine
DX: N39.0 Urinary tract infection, site not specified (principal); N13.2 Hydronephrosis with renal and ureteral calculous obstruction

== ENCOUNTER 2018-08-06 06:20 | Day surgery (SDC) | payer MEDICARE, OTHER ==
[2018-08-01 11:53] LABS: BASOPHILS 0.2 % (0-2); EOSINOPHILS 1.3 % (0-7); LYMPHOCYTES 22.5 % (15-50); MCH 29.8 pg (26.0-34.0); MCHC 34.1 g/dL (31.0-37.0); MCV 87.2 fL (80.0-100.0); MONOCYTES 8.8 % (2-11); NEUTROPHILS 67.2 % (40-80); PLATELET COUNT 111 10x3/uL (130-400); RDW 16.4 % (11.5-14.5); WBC 4.8 10x3/uL (4.8-10.8)
[2018-08-01 12:09] LABS: ANION GAP 14.6 mmol/L (8-16); CALCIUM 9.3 mg/dL (8.5-10.1); CARBON DIOXIDE 26.1 mmol/L (21.0-32.0); CREATININE - SERUM 1.5 mg/dL (0.6-1.3); POTASSIUM - SERUM 3.7 mmol/L (3.5-5.1)
[2018-08-01 12:32] LABS: APTT 27.9 SECONDS (22.8-39.4); INR 1.1 (0.85-1.17); PROTIME 13.7 SECONDS (11.6-15.0)
[~2018-08-06] VITALS: Ht 175.3 cm; Wt 104.3 kg
[~2018-08-06 06:20] MED LIST changes: +LEVOFLOXACIN500 MG PO
[2018-08-06 08:00] VITALS: BP 144/83; Ht 175.3 cm; Wt 104.3 kg
--- NOTE | 2018-08-06 13:35 | NUR ---
REC'D FROM RR. FAMILY AT BEDSIDE. DRESSING CDI TO LUE. ICE PACK IN PLACE. SLING IN USE. GRAPE JUICE BROUGHT TO PT.
--- NOTE | 2018-08-06 14:05 | NUR ---
SITTING UP ON SIDE OF BED. DRESSING CDI. SPOUSE AT BEDSIDE. WAITING ON FL TRAY.
--- NOTE | 2018-08-06 14:17 | NUR ---
FL TRAY BROUGHT TO PT. SPOUSE AT BEDSIDE. DRESSING CDI.
--- NOTE | 2018-08-06 14:25 | NUR ---
TOLERATED FL DIET. IV DC'D WITH CATHETER INTACT. WRITTEN AND VERBAL DC INST. GIVEN TO PT. VERBALIZED UNDERSTANDING.
--- NOTE | 2018-08-06 15:17 | NUR ---
TRANSPORTATION HERE. DC'D HOME WITH FAMILY/FRIEND VIA PRIVATE VEHICLE. TAKEN TO VEHICLE VIA WC. STABLE AT TIME OF SC.
== END 2018-08-06 15:17 | disposition home or self-care (01) ==
LOC: D.OPS 06:20 → D.PAN 08:30 → D.OPS 08:30
PROVIDERS: Anesthesiology; ATTEND Orthopaedic Surgery
DX: M75.122 Complete rotator cuff tear or rupture of left shoulder, not specified as traumatic (principal); M75.42 Impingement syndrome of left shoulder; S43.402A Unspecified sprain of left shoulder joint, initial encounter; X58.XXXA Exposure to other specified factors, initial encounter; M24.412 Recurrent dislocation, left shoulder; M13.812 Other specified arthritis, left shoulder; Z01.812 Encounter for preprocedural laboratory examination

== ENCOUNTER 2018-11-11 12:01 | Emergency (ER) | payer MEDICARE, OTHER ==
[~2018-11-11] VITALS: Ht 175.3 cm; Wt 102.1 kg
[2018-11-11 12:10] VITALS: Ht 175.3 cm; Wt 102.1 kg
[2018-11-11] MEDS ORDERED: LYRICA200 MG PO (12:14)
[2018-11-11 12:51] LABS: BASOPHILS 0 % (0-2); EOSINOPHILS 1.1 % (0-7); HEMATOCRIT 39.3 % (42.0-54.0); HEMOGLOBIN 13.5 g/dL (13.5-17.5); IMMATURE GRANULOCYTES 0.2 % (0-5); LYMPHOCYTES 21.8 % (15-50); MCH 29.7 pg (26.0-34.0); MCHC 34.4 g/dL (31.0-37.0); MCV 86.6 fL (80.0-100.0); MEAN PLATELET VOLUME 10.9 fL (7.4-10.4); MONOCYTES 7.3 % (2-11); NEUTROPHILS 69.6 % (40-80); PLATELET COUNT 114 10x3/uL (130-400); RBC 4.54 10x6/uL (4.20-6.10); RDW 16.5 % (11.5-14.5); WBC 4.5 10x3/uL (4.8-10.8)
[2018-11-11 13:02] LABS: AMORPHOUS SEDIMENT <1+ /lpf (NONE SEEN); APPEARANCE SL CLDY (CLEAR); BACTERIA MANY /hpf (NONE SEEN); BILIRUBIN NEGATIVE (NEGATIVE); COLOR YELLOW (YELLOW); EPITHELIAL CELLS RARE /hpf (0-5); GLUCOSE NEGATIVE (NEGATIVE); KETONE NEGATIVE (NEGATIVE); MUCUS <1+ /lpf (NONE SEEN); NITRITE POSITIVE (NEGATIVE); PROTEIN 1+ mg/dL (NEGATIVE); RED CELLS - URINE 0-5 /hpf (0-5); UROBILINOGEN NORMAL (NORMAL)
[2018-11-11 13:11] LABS: ALBUMIN 3.8 g/dL (3.4-5.0); ANION GAP 13.3 mmol/L (8-16); BILIRUBIN - TOTAL 0.5 mg/dL (0.2-1.3); CALCIUM 10.1 mg/dL (8.5-10.1); CARBON DIOXIDE 27.6 mmol/L (21.0-32.0); CREATININE - SERUM 1.6 mg/dL (0.6-1.3); POTASSIUM - SERUM 3.9 mmol/L (3.5-5.1); PROTEIN - SERUM 7.5 g/dL (6.4-8.2)
[2018-11-11] MEDS ORDERED: AUGMENTIN 875-11 TAB PO (14:37)
[2018-11-11 16:04] VITALS: BP 135/79
== END 2018-11-11 16:11 | disposition home or self-care (01) ==
LOC: D.ER 12:01
PROVIDERS: Family Medicine
DX: N39.0 Urinary tract infection, site not specified (principal); E11.40 Type 2 diabetes mellitus with diabetic neuropathy, unspecified; I10 Essential (primary) hypertension; I25.10 Atherosclerotic heart disease of native coronary artery without angina pectoris; E78.5 Hyperlipidemia, unspecified

== ENCOUNTER 2020-06-23 21:39 | Emergency (ER) | payer MEDICARE, OTHER ==
[~2020-06-23] VITALS: Ht 175.3 cm; Wt 104.1 kg
[~2020-06-23 21:39] MED LIST changes: +AUGMENTIN 875-11 TAB PO; +LOW DOSE ASPIRI81 M1 PO; +LYRICA200 MG PO
[2020-06-23 21:43] VITALS: BP 163/82; Ht 175.3 cm; Wt 104.1 kg
[2020-06-23] MEDS ORDERED: COZAAR25 MG PO (21:47)
[2020-06-23] MEDS ORDERED: AUGMENTIN 875-11 TAB PO (22:00)
== END 2020-06-23 22:32 | disposition home or self-care (01) ==
LOC: D.ER 21:39
DX: L03.116 Cellulitis of left lower limb (principal); E11.9 Type 2 diabetes mellitus without complications; I10 Essential (primary) hypertension; K21.9 Gastro-esophageal reflux disease without esophagitis; Z72.0 Tobacco use; Z79.84 Long term (current) use of oral hypoglycemic drugs